=== PATIENT | male | born 1995 | race African-American/Black ===

== ENCOUNTER 2017-07-15 23:40 | Emergency (ER) | payer SELFPAY ==
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
[2017-07-16] MEDS ORDERED: levETIRAcetam 500 MG TAB ONE (00:09)
[2017-07-16] MEDS ORDERED: KETOROLAC 30 MG/ML INJ ONE (00:09)
== END 2017-07-16 00:28 | disposition home or self-care (01) ==
LOC: ER 23:40
DX: M51.17 Intervertebral disc disorders with radiculopathy, lumbosacral region (principal); J45.909 Unspecified asthma, uncomplicated; R56.9 Unspecified convulsions
CPT/HCPCS: 96372; 99284

== ENCOUNTER 2018-03-01 15:33 | Emergency (ER) | payer SELFPAY ==
[2018-03-01] MEDS ORDERED: NA CHLORIDE 0.9% 1,000 ML ONE (16:22)
[2018-03-01 16:23] LABS: Absolute Lymphocytes (CBC) 1.5 K/uL (0.7-4.9); Absolute Monocytes 0.8 K/uL (0.1-1.3); Absolute Neutrophil 6.7 K/uL (1.8-8.0); Basophils % 0.7 % (0-1.3); Eosinophils % 0.7 % (0-4.4); Hematocrit 41.5 % (39.6-49.0); Lymphocytes % 16.8 % (15.3-44.8); MPV 8.3 fL (7.6-11.3); Monocytes % 8.9 % (3.3-12.3); RBC Red Blood Cell Count 5.31 M/uL (4.33-5.43)
[2018-03-01 16:27] LABS: Protime INR 1.08
[2018-03-01] MEDS ORDERED: levETIRAcetam 1,000 MG in NA CHLORIDE 0.9% 100 ML IV ONE (16:30)
[2018-03-01 16:44] LABS: ALT/SGPT 32 U/L (12-78); AST/SGOT 16 U/L (15-37); Albumin 3.5 g/dL (3.4-5.0); Alkaline Phosphatase 74 U/L (45-117); BUN Blood Urea Nitrogen 9 mg/dL (7-18); Bicarbonate 25 mmol/L (21-32); Bilirubin Direct < 0.1 mg/dL (0-0.2); Bilirubin Total 0.4 mg/dL (0.2-1.0); Glucose Level 103 mg/dL (74-106); Potassium 3.4 mmol/L (3.5-5.1); Protein, Total 6.9 g/dL (6.4-8.2); Sodium Level 141 mmol/L (136-145)
[2018-03-01 16:44] LABS: Barbiturates NEGATIVE (NEGATIVE); Benzodiazepines NEGATIVE (NEGATIVE); Cocaine NEGATIVE (NEGATIVE); METHAMPHETAM NEGATIVE (NEGATIVE); Methadone NEGATIVE (NEGATIVE); Opiates NEGATIVE (NEGATIVE); Phencyclidine NEGATIVE (NEGATIVE); THC Cannibis POSITIVE (NEGATIVE)
--- NOTE | 2018-03-01 17:11 | EDPHYS ---
Physician Documentation [facility] Name: Oswaldo Moore Age: 23 yrs Sex: Male : 1995 Arrival Date: 03/01/2018 Time: 15:40 Bed 6 Private MD: Steven Smith HPI: 03/01 15:45 This 23 yrs old Black Male presents to ER via Unassigned with complaints of Doesn't andrez Feel Right. 15:45 The patient presents with seizure activity. Onset: The symptoms/episode began/occurred andrez 1 day(s) ago. Possible causes: drug use, benzodiazepines, unknown. The patient presents with dizziness. Context: occurred at home. Modifying factors: The symptoms are alleviated by nothing, the symptoms are aggravated by nothing. Associated signs and symptoms: The patient has no apparent associated signs or symptoms. Historical: - Allergies: 15:53 Xanax; ph - Home Meds: 15:53 Keppra Oral [Active]; ph - PMHx: 15:53 Asthma; Seizures; ph - Immunization history:: Adult Immunizations unknown. - Social history:: Smoking status: Patient uses tobacco products, smokes one pack cigarettes per day. Patient uses street drugs, marijuana. - Family history:: not pertinent. - Ebola Screening: : No symptoms or risks identified at this time. ROS: 15:45 Constitutional: Negative for fever, chills, and weight loss, Eyes: Negative for injury, andrez pain, redness, and discharge, ENT: Negative for injury, pain, and discharge, Neck: Negative for injury, pain, and swelling, Cardiovascular: Negative for chest pain, palpitations, and edema, Respiratory: Negative for shortness of breath, cough, wheezing, and pleuritic chest pain, Abdomen/GI: Negative for abdominal pain, nausea, vomiting, diarrhea, and constipation, Back: Negative for injury and pain, : Negative for injury, bleeding, discharge, and swelling, MS/Extremity: Negative for injury and deformity, Skin: Negative for injury, rash, and discoloration, Psych: Negative for depression, anxiety, suicide ideation, homicidal ideation, and hallucinations, Allergy/Immunology: Negative for hives, rash, and allergies, Endocrine: Negative for neck swelling, polydipsia, polyuria, polyphagia, and marked weight changes, Hematologic/Lymphatic: Negative for swollen nodes, abnormal bleeding, and unusual bruising. 15:45 Neuro: Positive for dizziness, seizure activity. Exam: 15:45 Constitutional: This is a well developed, well nourished patient who is awake, alert, andrez and in no acute distress. Head/Face: Normocephalic, atraumatic. Eyes: Pupils equal round and reactive to light, extra-ocular motions intact. Lids and lashes normal. Conjunctiva and sclera are non-icteric and not injected. Cornea within normal limits. Periorbital areas with no swelling, redness, or edema. ENT: Nares patent. No nasal discharge, no septal abnormalities noted. Tympanic membranes are normal and external auditory canals are clear. Oropharynx with no redness, swelling, or masses, exudates, or evidence of obstruction, uvula midline. Mucous membranes moist. Neck: Trachea midline, no thyromegaly or masses palpated, and no cervical lymphadenopathy. Supple, full range of motion without nuchal rigidity, or vertebral point tenderness. No Meningismus. Chest/axilla: Normal chest wall appearance and motion. Nontender with no deformity. No lesions are appreciated. Cardiovascular: Regular rate and rhythm with a normal S1 and S2. No gallops, murmurs, or rubs. Normal PMI, no JVD. No pulse deficits. Respiratory: Lungs have equal breath sounds bilaterally, clear to auscultation and percussion. No rales, rhonchi or wheezes noted. No increased work of breathing, no retractions or nasal flaring. Abdomen/GI: Soft, non-tender, with normal bowel sounds. No distension or tympany. No guarding or rebound. No evidence of tenderness throughout. Back: No spinal tenderness. No costovertebral tenderness. Full range of motion. Skin: Warm, dry with normal turgor. Normal color with no rashes, no lesions, and no evidence of cellulitis. MS/ Extremity: Pulses equal, no cyanosis. Neurovascular intact. Full, normal range of motion. Neuro: Awake and alert, GCS 15, oriented to person, place, time, and situation. Cranial nerves II-XII grossly intact. Motor strength 5/5 in all extremities. Sensory grossly intact. Cerebellar exam normal. Normal gait. Psych: Awake, alert, with orientation to person, place and time. Behavior, mood, and affect are within normal limits. Vital Signs: 15:46 BP 138 / 90; Pulse 109; Resp 20; Temp 98.3; Pulse Ox 99% on R/A; Weight 113.4 kg; ph Height 5 ft. 6 in. (167.64 cm); 16:38 BP 125 / 86; Pulse 101; Resp 18; Pulse Ox 100% on R/A; ph 17:28 BP 118 / 76; Pulse 97; Resp 18; Temp 98.0; Pulse Ox 98% on R/A; ph 15:46 Body Mass Index 40.35 (113.40 kg, 167.64 cm) ph MDM: 15:40 Patient medically screened. [facility] 15:48 Data reviewed: vital signs, nurses notes. [facility] 03/01 15:43 Order name: Acetaminophen; Complete Time: 17:04 [facility] 03/01 15:43 Order name: Basic Metabolic Panel; Complete Time: 17:04 [facility] 03/01 15:43 Order name: CBC with Diff; Complete Time: 17:04 [facility] 03/01 15:43 Order name: ETOH Level; Complete Time: 16:42 [facility] 03/01 15:43 Order name: Hepatic Function; Complete Time: 17:04 [facility] 03/01 15:43 Order name: PT-INR; Complete Time: 16:42 [facility] 03/01 15:43 Order name: Ptt, Activated; Complete Time: 16:42 [facility] 03/01 15:43 Order name: Salicylate; Complete Time: 17:04 [facility] 03/01 15:43 Order name: Urine Drug Screen; Complete Time: 17:04 [facility] 03/01 15:43 Order name: EKG; Complete Time: 15:44 [facility] 03/01 16:34 Order name: Urine Dipstick--Ancillary (enter results) 03/01 15:43 Order name: EKG - Nurse/Tech; Complete Time: 17:13 [facility] 03/01 15:43 Order name: IV Saline Lock; Complete Time: 17:14 [facility] 03/01 15:43 Order name: Labs collected and sent; Complete Time: 17:14 [facility] 03/01 15:43 Order name: Urine Dipstick-Ancillary (obtain specimen); Complete Time: 17:14 [facility] 03/01 15:43 Order name: Seizure Precautions; Complete Time: 16:12 [facility] Administered Medications: 16:25 Drug: NS 0.9% 1000 ml Route: IV; Rate: 1 bolus; Site: right antecubital; ph 17:31 Follow up: Response: No adverse reaction; IV Status: Completed infusion ph 17:12 Drug: Potassium Effervescent Tablet 25 mEq Route: PO; ph 17:31 Follow up: Response: No adverse reaction ph 17:17 Not Given (Patient Refused): Keppra 1000 mg IV at per protocol once ph Disposition: 03/01/18 17:10 Discharged to Home. Impression: Epileptic seizures related to external causes, Epileptic seizures related to external causes, not intractable, Hypokalemia, Abuse of non-psychoactive substances. - Condition is Stable. - Discharge Instructions: Potassium Content of Foods, Substance Use Disorder, Nonepileptic Seizures, Seizure, Adult, Seizure, Adult, Pani-[id number]-[id number], Hypokalemia. - Prescriptions for Keppra 500 mg Oral Tablet - take 1 tablet by ORAL route every 12 hours; 20 tablet. - Medication Reconciliation Form, Thank You Letter, Antibiotic Education, Prescription Opioid Use form. - Follow up: Private Physician; When: 2 - 3 days; Reason: Recheck today's complaints, Continuance of care, Re-evaluation by your physician. Follow up: Avni Roberto; When: 2 - 3 days; Reason: Recheck today's complaints, Continuance of care, Re-evaluation by your physician. - Problem is new. - Symptoms have improved. Signatures: Dispatcher [employer] EDMS Steven Herrera MD MD cha Hall, Patricia, RN RN ph Corrections: (The following items were deleted from the chart) 17:32 17:10 03/01/2018 17:10 Discharged to Home. Impression: Epileptic seizures related to ph external causes; Epileptic seizures related to external causes, not intractable; Hypokalemia; Abuse of non-psychoactive substances. Condition is Stable. Discharge Instructions: Nonepileptic Seizures, Seizure, Adult, Seizure, Adult, [id number]. Prescriptions for Keppra 500 mg Oral Tablet - take 1 tablet by ORAL route every 12 hours; 20 tablet. and Forms are Medication Reconciliation Form, Thank You Letter, Antibiotic Education, Prescription Opioid Use. Follow up: Private Physician; When: 2 - 3 days; Reason: Recheck today's complaints, Continuance of care, Re-evaluation by your physician. Follow up: Avni Roberto; When: 2 - 3 days; Reason: Recheck today's complaints, Continuance of care, Re-evaluation by your physician. Problem is new. Symptoms have improved. andrez
--- NOTE | 2018-03-01 17:11 | ER ---
Nurse's Notes [facility] Name: Oswaldo Moore Age: 23 yrs Sex: Male : 1995 Arrival Date: 03/01/2018 Time: 15:40 Bed 6 Private MD: Diagnosis: Epileptic seizures related to external causes;Epileptic seizures related to external causes, not intractable;Hypokalemia;Abuse of non-psychoactive substances Presentation: 03/01 15:42 Presenting complaint: EMS states: Pt was being arrested and began to c/o "aura" r/t ph seizures, pt reports hx of seizures x 2 years after using Xanax, states that he is prescribed Keppra but has not taken it in approx 3 weeks, states, " I only take it when I feel a seizure coming." Reports that aura is weakness and nausea, has been having these symptoms for approx 20 min, no seizure activity noted by EMS or PD, VSS en route, BGL 129. Transition of care: patient was not received from another setting of care. Onset of symptoms was March 01, 2018. Risk Assessment: Do you want to hurt yourself or someone else? Patient reports no desire to harm self or others. Initial Sepsis Screen: Does the patient meet any 2 criteria? No. Patient's initial sepsis screen is negative. Does the patient have a suspected source of infection? No. Patient's initial sepsis screen is negative. Care prior to arrival: IV initiated. 18 GA, in the right antecubital area, Glucose check: 129. 15:42 Method Of Arrival: EMS: [facility] ph 15:42 Acuity: SUMAN 3 ph Historical: - Allergies: 15:53 Xanax; ph - Home Meds: 15:53 Keppra Oral [Active]; ph - PMHx: 15:53 Asthma; Seizures; ph - Immunization history:: Adult Immunizations unknown. - Social history:: Smoking status: Patient uses tobacco products, smokes one pack cigarettes per day. Patient uses street drugs, marijuana. - Family history:: not pertinent. - Ebola Screening: : No symptoms or risks identified at this time. Screenin:55 Abuse screen: Denies threats or abuse. Denies injuries from another. Nutritional ph screening: No deficits noted. Tuberculosis screening: No symptoms or risk factors identified. Fall Risk None identified. Assessment: 15:58 General: General: Appears in no apparent distress. comfortable, well groomed, Behavior ph is calm, cooperative, appropriate for age. 15:58 Pain: Denies pain. Neuro: Level of Consciousness is awake, alert, obeys commands, ph Oriented to person, place, time, situation, Moves all extremities. Full function Reports weakness in "all over". Cardiovascular: Capillary refill < 3 seconds in bilateral fingers Patient's skin is warm and dry. Respiratory: Airway is patent Respiratory effort is even, unlabored, Respiratory pattern is regular, symmetrical. GI: Reports nausea, Patient currently denies vomiting. Derm: Skin is intact, is healthy with good turgor, Skin is pink, warm \\T\\ dry. Musculoskeletal: Circulation, motion, and sensation intact. Range of motion: intact in all extremities. 16:27 Reassessment: Patient appears in no apparent distress at this time. Patient and/or ph family updated on plan of care and expected duration. Pain level reassessed. Patient is alert, oriented x 3, equal unlabored respirations, skin warm/dry/pink. Pt refusing IV Keppra at this time, states, " I want to wait for my blood work to come back. I don't know if I want to take any medicines." PD remains at bedside. Vital Signs: 15:46 BP 138 / 90; Pulse 109; Resp 20; Temp 98.3; Pulse Ox 99% on R/A; Weight 113.4 kg; ph Height 5 ft. 6 in. (167.64 cm); 16:38 BP 125 / 86; Pulse 101; Resp 18; Pulse Ox 100% on R/A; ph 17:28 BP 118 / 76; Pulse 97; Resp 18; Temp 98.0; Pulse Ox 98% on R/A; ph 15:46 Body Mass Index 40.35 (113.40 kg, 167.64 cm) ph ED Course: 15:40 Patient arrived in ED. ph 15:40 Steven Herrera MD is Attending Physician. [facility] 15:46 Triage completed. ph 15:48 Ernestina Daigle, DEMETRIA is Primary Nurse. ph 15:54 Arm band placed on. ph 15:54 EKG done, by dietetic technician registered. reviewed by Steven Herrera MD. sm3 15:56 Patient has correct armband on for positive identification. Bed in low position. Call ph light in reach. Side rails up X2. Pulse ox on. NIBP on. Warm blanket given. 17:09 Avni Roberto MD is Referral Physician. [facility] 17:28 No provider procedures requiring assistance completed. IV discontinued, intact, ph bleeding controlled, No redness/swelling at site. Pressure dressing applied. Administered Medications: 16:25 Drug: NS 0.9% 1000 ml Route: IV; Rate: 1 bolus; Site: right antecubital; ph 17:31 Follow up: Response: No adverse reaction; IV Status: Completed infusion ph 17:12 Drug: Potassium Effervescent Tablet 25 mEq Route: PO; ph 17:31 Follow up: Response: No adverse reaction ph 17:17 Not Given (Patient Refused): Keppra 1000 mg IV at per protocol once ph Outcome: 17:10 Discharge ordered by . [facility] 17:28 Discharged to Law Enforcement ph 17:28 Condition: good 17:28 Discharge instructions given to patient, Instructed on discharge instructions, follow up and referral plans. medication usage, Demonstrated understanding of instructions, follow-up care, medications, Prescriptions given X 1. 17:32 Patient left the ED. ph Signatures: Steven Herrera MD MD cha Hall, Patricia RN RN Katie Ortiz 3 Corrections: (The following items were deleted from the chart) 16:37 15:58 General: ph ph 16:38 16:27 Pain: Denies pain. ph ph 16:38 16:27 Neuro: Level of Consciousness is awake, alert, obeys commands, Oriented to ph person, place, time, situation, Moves all extremities. Full function Reports weakness in "all over" ph 16:38 16:27 Cardiovascular: Capillary refill < 3 seconds in bilateral fingers Patient's skin ph is warm and dry. ph 16:38 16:27 Respiratory: Airway is patent Respiratory effort is even, unlabored, Respiratory ph pattern is regular, symmetrical, ph 16:38 16:27 GI: Reports nausea, Patient currently denies vomiting, ph ph 16:38 16:27 Derm: Skin is intact, is healthy with good turgor, Skin is pink, warm \\T\\ dry. ph ph 16:38 16:27 Musculoskeletal: Circulation, motion, and sensation intact. Range of motion: ph intact in all extremities, ph 16:42 16:38 Pulse 101bpm; Resp 18bpm; Pulse Ox 100% RA; ph ph
[2018-03-01 17:16] LABS: Urine Blood TRACE (NEG); Urine Glucose NEGATIVE (NEG); Urine Protein NEGATIVE (NEG)
[2018-03-01] MEDS ORDERED: POTASSIUM CL SA 10 MEQ TAB PO ONE (17:32)
--- NOTE | 2018-03-02 07:44 | EKG ---
Test Date: 2018-03-01 Test Time: 15:46:59 Cribbing Setter: GARETH MEASUREMENT RESULTS: Intervals: Rate: 91 GA: 140 QRSD: 90 QT: 312 QTc: 383 Raymond: P: 36 GA: 140 QRS: 29 T: 13 INTERPRETIVE STATEMENTS: Sinus rhythm with marked sinus arrhythmia Possible Left atrial enlargement T wave abnormality, consider lateral ischemia Abnormal ECG Compared to ECG 09/23/2016 05:21:21 T-wave abnormality now present Electronically Signed On 03-02-18 07:44:29 ASSISTANT FARM OPERATIONS MANAGER by Haider Beltrán
== END 2018-03-01 17:32 | disposition home or self-care (01) ==
LOC: ER 15:33
DX: G40.509 Epileptic seizures related to external causes, not intractable, without status epilepticus (principal); F55.8 Abuse of other non-psychoactive substances; E87.6 Hypokalemia; F17.210 Nicotine dependence, cigarettes, uncomplicated; Z88.8 Allergy status to other drugs, medicaments and biological substances
CPT/HCPCS: 36415; 80048; 80076; 80307; 80320; 80329; 81003; 85025; 85610; 85730; 93005; 96360; 99284; J1953; J7030

== ENCOUNTER 2018-05-05 06:41 | Emergency (ER) | payer SELFPAY ==
[2018-05-05] MEDS ORDERED: ACETAMINOPHEN 325 MG TABLET ONE (07:08)
--- NOTE | 2018-05-05 07:44 | EDPHYS ---
Physician Documentation [facility] Name: Oswaldo Moore Age: 23 yrs Sex: Male : 1995 Arrival Date: 05/05/2018 Time: 06:44 Bed 6 Private MD: ED Physician Wilberto Sharma HPI: 05/05 06:55 This 23 yrs old Black Male presents to ER via Ambulatory with complaints of Sore Throat.jr8 06:55 The patient presents with sore throat. The patient describes throat pain as constant, jr8 raw. Onset: The symptoms/episode began/occurred acutely, 2 day(s) ago. Severity of symptoms: At their worst the symptoms were mild, in the emergency department the symptoms are unchanged. Modifying factors: The symptoms are alleviated by nothing, the symptoms are aggravated by sleeping, swallowing. Associated signs and symptoms: Pertinent positives: fever, Sore throat. The patient has not experienced similar symptoms in the past. The patient has not recently seen a physician. Historical: - Allergies: 06:55 Xanax; bb - Home Meds: 06:57 None [Active]; bb - PMHx: 06:55 Asthma; Seizures; bb - PSHx: 06:55 None; bb - Immunization history:: Adult Immunizations up to date. - Social history:: Smoking status: Patient uses tobacco products, smokes one-half pack cigarettes per day, Patient/guardian denies using alcohol, street drugs. - Ebola Screening: : No symptoms or risks identified at this time. ROS: 06:55 Eyes: Negative for injury, pain, redness, and discharge, Neck: Negative for injury, jr8 pain, and swelling, Cardiovascular: Negative for chest pain, palpitations, and edema, Respiratory: Negative for shortness of breath, cough, wheezing, and pleuritic chest pain, Abdomen/GI: Negative for abdominal pain, nausea, vomiting, diarrhea, and constipation, Back: Negative for injury and pain, MS/Extremity: Negative for injury and deformity, Skin: Negative for injury, rash, and discoloration, Neuro: Negative for headache, weakness, numbness, tingling, and seizure. 06:55 Constitutional: Positive for fever. 06:55 ENT: Positive for sore throat, Negative for drainage from ear(s), ear pain, rhinorrhea, sinus congestion, difficulty swallowing, difficulty handling secretions, hoarseness. Exam: 06:55 Eyes: Pupils equal round and reactive to light, extra-ocular motions intact. Lids and jr8 lashes normal. Conjunctiva and sclera are non-icteric and not injected. Cornea within normal limits. Periorbital areas with no swelling, redness, or edema. Neck: Trachea midline, no thyromegaly or masses palpated, and no cervical lymphadenopathy. Supple, full range of motion without nuchal rigidity, or vertebral point tenderness. No Meningismus. Cardiovascular: Regular rate and rhythm with a normal S1 and S2. No gallops, murmurs, or rubs. Normal PMI, no JVD. No pulse deficits. Respiratory: Lungs have equal breath sounds bilaterally, clear to auscultation and percussion. No rales, rhonchi or wheezes noted. No increased work of breathing, no retractions or nasal flaring. Abdomen/GI: Soft, non-tender, with normal bowel sounds. No distension or tympany. No guarding or rebound. No evidence of tenderness throughout. Back: No spinal tenderness. No costovertebral tenderness. Full range of motion. Skin: Warm, dry with normal turgor. Normal color with no rashes, no lesions, and no evidence of cellulitis. MS/ Extremity: Pulses equal, no cyanosis. Neurovascular intact. Full, normal range of motion. Neuro: Awake and alert, GCS 15, oriented to person, place, time, and situation. Cranial nerves II-XII grossly intact. Motor strength 5/5 in all extremities. Sensory grossly intact. Cerebellar exam normal. Normal gait. 06:55 ENT: Exam is negative for earache, ear discharge, TM abnormalities, nasal discharge, Mouth: Lips: moist, Oral mucosa: pink and intact, moist, Gums: pink, Tongue: is moist, Posterior pharynx: Airway: patent, Tonsils: bilaterally enlarged, with erythema, with exudate, no ulcerations, Uvula: midline, non-edematous, no erythema, swelling, is not appreciated, erythema, that is mild. Vital Signs: 06:55 BP 118 / 78; Pulse 119; Resp 16 S; Temp 100.9(O); Pulse Ox 99% on R/A; Weight 104.33 kg bb (R); Height 5 ft. 6 in. (167.64 cm) (R); Pain 10/10; 07:55 BP 123 / 65; Pulse 101; Resp 16; Temp 99.5; Pulse Ox 99% ; bp 06:55 Body Mass Index 37.12 (104.33 kg, 167.64 cm) bb MDM: 06:50 Patient medically screened. jr8 07:33 Differential diagnosis: joel-shin virus, group A strep tonsillitis, ambreen's angina, jr8 peritonsillar abscess pharyngitis, retropharyngeal abcess tonsillitis, upper respiratory infection, uvulitis, viral syndrome. Data reviewed: vital signs, nurses notes, lab test result(s), and as a result, I will discharge patient. Data interpreted: Pulse oximetry: on room air is 99 %. Interpretation: normal. Counseling: I had a detailed discussion with the patient and/or guardian regarding: the historical points, exam findings, and any diagnostic results supporting the discharge/admit diagnosis, lab results, the need for outpatient follow up, a family practitioner, to return to the emergency department if symptoms worsen or persist or if there are any questions or concerns that arise at home. 05/05 07:03 Order name: Influenza Screen (A ; Complete Time: 07:29 EDMS 05/05 07:03 Order name: Group A Streptococcus Rapid Sc; Complete Time: 07:29 EDMS 05/05 07:23 Order name: Throat Culture EDMS Administered Medications: 06:59 Drug: Tylenol 650 mg Route: PO; jd3 07:39 Follow up: Response: Temperature is decreased bp 07:39 Drug: Decadron 10 mg Route: IM; Site: left vastus lateralis; bp Disposition: 05/05/18 07:44 Discharged to Home. Impression: Acute tonsillitis. - Condition is Stable. - Discharge Instructions: Tonsillitis. - Prescriptions for Augmentin 875- 125 mg Oral Tablet - take 1 tablet by ORAL route every 12 hours for 10 days; 20 tablet. Tessalon Perles 100 mg Oral Capsule - take 1 capsule by ORAL route every 8 hours As needed; 15 capsule. - Medication Reconciliation Form, Thank You Letter, Antibiotic Education, Prescription Opioid Use form. - Follow up: Private Physician; When: 1 week; Reason: Recheck today's complaints, Continuance of care, Re-evaluation by your physician. - Problem is new. - Symptoms have improved. Addendum: 05/07/2018 19:27 Co-signature as Attending Physician, Wilberto Sharma MD. r n Signatures: Dispatcher [employer] Slime Angeles RN RN Wilberto Diallo MD MD rn Roszak, Josh, PA PA jr8 Domenic Haney RN RN jd3 Aroldo Barrera RN RN bp Corrections: (The following items were deleted from the chart) 05/05 06:57 06:55 Home Meds: Keppra Oral; stone ritter 07:56 07:44 05/05/2018 07:44 Discharged to Home. Impression: Acute tonsillitis. Condition is bp Stable. Forms are Medication Reconciliation Form, Thank You Letter, Antibiotic Education, Prescription Opioid Use. Follow up: Private Physician; When: 1 week; Reason: Recheck today's complaints, Continuance of care, Re-evaluation by your physician. Problem is new. Symptoms have improved. jr8
--- NOTE | 2018-05-05 07:44 | ER ---
Nurse's Notes [facility] Name: Oswaldo Moore Age: 23 yrs Sex: Male : 1995 Arrival Date: 05/05/2018 Time: 06:44 Bed 6 Private MD: Diagnosis: Acute tonsillitis Presentation: 05/05 06:53 Presenting complaint: Patient states: he has had a sore throat and fever for 2 days pt bb is having difficulty swallowing and states the pain woke him up pain currently is 10/10. Transition of care: patient was not received from another setting of care. Onset of symptoms was May 03, 2018. Risk Assessment: Do you want to hurt yourself or someone else? Patient reports no desire to harm self or others. Initial Sepsis Screen: Does the patient meet any 2 criteria? No. Patient's initial sepsis screen is negative. Does the patient have a suspected source of infection? No. Patient's initial sepsis screen is negative. Care prior to arrival: None. 06:53 Method Of Arrival: Ambulatory bb 06:53 Acuity: SUMAN 4 bb Historical: - Allergies: 06:55 Xanax; bb - Home Meds: 06:57 None [Active]; bb - PMHx: 06:55 Asthma; Seizures; bb - PSHx: 06:55 None; bb - Immunization history:: Adult Immunizations up to date. - Social history:: Smoking status: Patient uses tobacco products, smokes one-half pack cigarettes per day, Patient/guardian denies using alcohol, street drugs. - Ebola Screening: : No symptoms or risks identified at this time. Screenin:00 Abuse screen: Denies threats or abuse. Denies injuries from another. Nutritional bp screening: No deficits noted. Tuberculosis screening: No symptoms or risk factors identified. Fall Risk None identified. Assessment: 07:00 General: Appears in no apparent distress. comfortable, Behavior is calm, cooperative, bp appropriate for age, RECD REPORT FROM ARMANDO AUGUSTIN. Pain: Complains of pain in THROAT. Neuro: Level of Consciousness is awake, alert, obeys commands, Oriented to person, place, time, situation, Appropriate for age. Cardiovascular: No deficits noted. Respiratory: Airway is patent Respiratory effort is even, unlabored, Respiratory pattern is regular, symmetrical, Breath sounds are clear. GI: No signs and/or symptoms were reported involving the gastrointestinal system. : No signs and/or symptoms were reported regarding the genitourinary system. EENT: Throat is reddened has enlarged tonsils bilaterally. Derm: No deficits noted. Musculoskeletal: Circulation, motion, and sensation intact. Range of motion: intact in all extremities. 07:54 Reassessment: PT D/C HOME AMBULATORY, DX WITH TONSILITIS. bp Vital Signs: 06:55 BP 118 / 78; Pulse 119; Resp 16 S; Temp 100.9(O); Pulse Ox 99% on R/A; Weight 104.33 kg bb (R); Height 5 ft. 6 in. (167.64 cm) (R); Pain 10/10; 07:55 BP 123 / 65; Pulse 101; Resp 16; Temp 99.5; Pulse Ox 99% ; bp 06:55 Body Mass Index 37.12 (104.33 kg, 167.64 cm) ED Course: 06:44 Patient arrived in ED. ag3 06:50 [facility]fred [facility]. jr8 06:50 Wilberto Sharma MD is Attending Physician. jr8 06:54 Triage completed. bb 06:55 Arm band placed on Patient placed in an exam room, on a stretcher, on pulse oximetry. bb 07:00 Patient has correct armband on for positive identification. Bed in low position. Call bp light in reach. Side rails up X2. 07:23 Aroldo Barrera RN is Primary Nurse. bp 07:54 No provider procedures requiring assistance completed. Patient did not have IV access bp during this emergency room visit. Administered Medications: 06:59 Drug: Tylenol 650 mg Route: PO; jd3 07:39 Follow up: Response: Temperature is decreased bp 07:39 Drug: Decadron 10 mg Route: IM; Site: left vastus lateralis; bp Outcome: 07:44 Discharge ordered by . jr8 07:54 Discharged to home ambulatory. bp 07:54 Condition: stable 07:54 Discharge instructions given to patient, Instructed on discharge instructions, follow up and referral plans. medication usage, Demonstrated understanding of instructions, follow-up care, medications, Prescriptions given X 2. 07:56 Patient left the ED. bp Signatures: Slime Meyer RN RN bb Wilfred Li PA PA jr8 Domenic Haney RN RN jd3 Aroldo Barrera RN RN bp Lizet Edwards ag3 Corrections: (The following items were deleted from the chart) 06:57 06:55 Home Meds: Keppra Oral; bb bb
[2018-05-05] MEDS ORDERED: DEXAMETHASONE 4 MG/ML VIAL ONE (07:46)
== END 2018-05-05 07:56 | disposition home or self-care (01) ==
LOC: ER 06:41
DX: J03.90 Acute tonsillitis, unspecified (principal); F17.210 Nicotine dependence, cigarettes, uncomplicated; Z88.5 Allergy status to narcotic agent
CPT/HCPCS: 87070; 87081; 87804; 96372; 99283

== ENCOUNTER 2018-07-05 18:29 | Emergency (ER) | payer SELFPAY ==
--- NOTE | 2018-07-05 19:15 | ER ---
Nurse's Notes [facility] Name: Oswaldo Moore Age: 23 yrs Sex: Male : 1995 Arrival Date: 07/05/2018 Time: 18:29 Bed 25 Private MD: Diagnosis: Allergic contact dermatitis-lip Presentation: 07/05 18:38 Presenting complaint: Patient states: "I noticed this morning that my lip was swollen sv and I have a bump on my tongue." Sore noted inside the upper lip and swelling. Transition of care: patient was not received from another setting of care. Onset of symptoms was July 05, 2018. Care prior to arrival: None. 18:38 Method Of Arrival: Ambulatory sv 18:38 Acuity: SUMAN 4 sv 19:00 Risk Assessment: Do you want to hurt yourself or someone else? Patient reports no ea desire to harm self or others. Initial Sepsis Screen: Does the patient meet any 2 criteria? HR > 90 bpm. Does the patient have a suspected source of infection? No. Patient's initial sepsis screen is negative. Triage Assessment: 18:43 General: Appears in no apparent distress. comfortable, well developed, Behavior is sv calm, cooperative, appropriate for age. Pain: Complains of pain in upper lip Pain currently is 8 out of 10 on a pain scale. Neuro: Level of Consciousness is awake, alert, obeys commands, Oriented to person, place, time, situation, Gait is steady. Respiratory: Respiratory effort is even, unlabored, Respiratory pattern is regular, symmetrical. Historical: - Allergies: 18:40 Xanax; sv - PMHx: 18:40 Asthma; Seizures; sv - PSHx: 18:40 None; sv - Immunization history:: Adult Immunizations up to date. - Social history:: Smoking status: Patient/guardian denies using tobacco. - Family history:: not pertinent. - Ebola Screening: : No symptoms or risks identified at this time. Screenin:28 Abuse screen: Denies threats or abuse. Nutritional screening: No deficits noted. ea Tuberculosis screening: No symptoms or risk factors identified. Fall Risk None identified. Assessment: 19:00 General: Appears in no apparent distress. Behavior is calm, cooperative, appropriate ea for age. Pain: Denies pain. Neuro: Level of Consciousness is awake, alert, obeys commands, Oriented to person, place, time, situation. Respiratory: Airway is patent Respiratory effort is even, unlabored, Respiratory pattern is regular, symmetrical. EENT: lip swelling to left side of upper lip pt reports it started yesterday evening. Derm: Skin is pink, warm \\T\\ dry. 19:30 Reassessment: Patient and/or family updated on plan of care and expected duration. Pain ea level reassessed. Patient is alert, oriented x 3, equal unlabored respirations, skin warm/dry/pink. Discharge instruction given to patient, verbalized the understanding of instruction. Pt left ED ambulatory with significant other, tolerating well. Vital Signs: 18:40 BP 135 / 80; Pulse 125; Resp 18; Temp 98.5; Pulse Ox 95% ; Weight 104.33 kg; Height 5 sv ft. 6 in. (167.64 cm); Pain 8/10; 19:29 BP 130 / 78; Pulse 99; Resp 18; Pulse Ox 96% ; ea 18:40 Body Mass Index 37.12 (104.33 kg, 167.64 cm) sv ED Course: 18:29 Patient arrived in ED. as 18:40 Triage completed. sv 18:40 Arm band placed on. sv 18:47 Steven Herrera MD is Attending Physician. andrez 19:00 Patient has correct armband on for positive identification. Bed in low position. Call ea light in reach. 19:01 Mirna Schwab, RN is Primary Nurse. ea 19:29 No provider procedures requiring assistance completed. Patient did not have IV access ea during this emergency room visit. Administered Medications: 19:09 Drug: Pepcid 40 mg Route: PO; ea 19:32 Follow up: Response: No adverse reaction ea 19:10 Drug: KeFLEX 500 mg Route: PO; ea 19:32 Follow up: Response: No adverse reaction ea 19:11 Drug: Benadryl 50 mg Route: PO; ea 19:32 Follow up: Response: No adverse reaction ea 19:22 Drug: Valtrex 1000 mg Route: PO; ea 19:32 Follow up: Response: Medication administered at discharge. ea Outcome: 19:15 Discharge ordered by . andrez 19:31 Discharged to home ambulatory, with significant other. ea 19:31 Condition: good 19:31 Discharge instructions given to patient, Instructed on discharge instructions, follow up and referral plans. medication usage, Demonstrated understanding of instructions, follow-up care, medications, Prescriptions given X 4. 19:33 Patient left the ED. ea Signatures: Katie Longoria RN RN Steven Mcknight MD MD cha Martinez, Amelia as Antunez, Elena, RN RN renee Corrections: (The following items were deleted from the chart) 18:41 18:40 BP 135 / 80; Pulse 125bpm; Resp 18bpm; Pulse Ox 95%; Temp 98.5F; 104.33 kg; sv Height 5 ft. 6 in.; BMI: 37.1; Pain 10/10; sv 18:43 18:38 Presenting complaint: Patient states: "sore on the inside upper lip and a bump on sv my tongue." sv
--- NOTE | 2018-07-05 19:15 | EDPHYS ---
Physician Documentation [facility] Name: Oswaldo Moore Age: 23 yrs Sex: Male : 1995 Arrival Date: 07/05/2018 Time: 18:29 Bed 25 Private MD: ED Physician Steven Herrera HPI: 07/05 19:01 This 23 yrs old Black Male presents to ER via Ambulatory with complaints of Lips andrez Swelling. 19:01 The patient presents with pain, swelling. The problem is located in the upper vermilion andrez border. Onset: The symptoms/episode began/occurred 2 day(s) ago. Duration: The symptoms are continuous, and are steadily getting worse. Modifying factors: The symptoms are alleviated by nothing, the symptoms are aggravated by nothing. Associated signs and symptoms: The patient has no apparent associated signs or symptoms. Severity of symptoms: At their worst the symptoms were mild, in the emergency department the symptoms are unchanged. The patient has not experienced similar symptoms in the past. Historical: - Allergies: 18:40 Xanax; sv - PMHx: 18:40 Asthma; Seizures; sv - PSHx: 18:40 None; sv - Immunization history:: Adult Immunizations up to date. - Social history:: Smoking status: Patient/guardian denies using tobacco. - Family history:: not pertinent. - Ebola Screening: : No symptoms or risks identified at this time. ROS: 19:01 Constitutional: Negative for fever, chills, and weight loss, Eyes: Negative for injury, andrez pain, redness, and discharge, Neck: Negative for injury, pain, and swelling, Cardiovascular: Negative for chest pain, palpitations, and edema, Respiratory: Negative for shortness of breath, cough, wheezing, and pleuritic chest pain, Abdomen/GI: Negative for abdominal pain, nausea, vomiting, diarrhea, and constipation, Back: Negative for injury and pain, : Negative for injury, bleeding, discharge, and swelling, MS/Extremity: Negative for injury and deformity, Skin: Negative for injury, rash, and discoloration, Neuro: Negative for headache, weakness, numbness, tingling, and seizure, Psych: Negative for depression, anxiety, suicide ideation, homicidal ideation, and hallucinations, Allergy/Immunology: Negative for hives, rash, and allergies, Endocrine: Negative for neck swelling, polydipsia, polyuria, polyphagia, and marked weight changes, Hematologic/Lymphatic: Negative for swollen nodes, abnormal bleeding, and unusual bruising. 19:01 ENT: Positive for left upper lip swelling, no trauma. Exam: 19:01 Constitutional: This is a well developed, well nourished patient who is awake, alert, andrez and in no acute distress. Eyes: Pupils equal round and reactive to light, extra-ocular motions intact. Lids and lashes normal. Conjunctiva and sclera are non-icteric and not injected. Cornea within normal limits. Periorbital areas with no swelling, redness, or edema. Neck: Trachea midline, no thyromegaly or masses palpated, and no cervical lymphadenopathy. Supple, full range of motion without nuchal rigidity, or vertebral point tenderness. No Meningismus. Chest/axilla: Normal chest wall appearance and motion. Nontender with no deformity. No lesions are appreciated. Cardiovascular: Regular rate and rhythm with a normal S1 and S2. No gallops, murmurs, or rubs. Normal PMI, no JVD. No pulse deficits. Respiratory: Lungs have equal breath sounds bilaterally, clear to auscultation and percussion. No rales, rhonchi or wheezes noted. No increased work of breathing, no retractions or nasal flaring. Abdomen/GI: Soft, non-tender, with normal bowel sounds. No distension or tympany. No guarding or rebound. No evidence of tenderness throughout. Back: No spinal tenderness. No costovertebral tenderness. Full range of motion. Skin: Warm, dry with normal turgor. Normal color with no rashes, no lesions, and no evidence of cellulitis. MS/ Extremity: Pulses equal, no cyanosis. Neurovascular intact. Full, normal range of motion. Neuro: Awake and alert, GCS 15, oriented to person, place, time, and situation. Cranial nerves II-XII grossly intact. Motor strength 5/5 in all extremities. Sensory grossly intact. Cerebellar exam normal. Normal gait. Psych: Awake, alert, with orientation to person, place and time. Behavior, mood, and affect are within normal limits. 19:01 ENT: Dental exam: left upper lip swelling. Vital Signs: 18:40 BP 135 / 80; Pulse 125; Resp 18; Temp 98.5; Pulse Ox 95% ; Weight 104.33 kg; Height 5 sv ft. 6 in. (167.64 cm); Pain 8/10; 19:29 BP 130 / 78; Pulse 99; Resp 18; Pulse Ox 96% ; ea 18:40 Body Mass Index 37.12 (104.33 kg, 167.64 cm) sv MDM: 18:47 Patient medically screened. [facility] 19:18 Data reviewed: vital signs, nurses notes. [facility] 07/05 19:14 Order name: Ice pack; Complete Time: 19:20 [facility] Administered Medications: 19:09 Drug: Pepcid 40 mg Route: PO; ea 19:32 Follow up: Response: No adverse reaction ea 19:10 Drug: KeFLEX 500 mg Route: PO; ea 19:32 Follow up: Response: No adverse reaction ea 19:11 Drug: Benadryl 50 mg Route: PO; ea 19:32 Follow up: Response: No adverse reaction ea 19:22 Drug: Valtrex 1000 mg Route: PO; ea 19:32 Follow up: Response: Medication administered at discharge. ea Disposition: 07/05/18 19:15 Discharged to Home. Impression: Allergic contact dermatitis - lip. - Condition is Stable. - Prescriptions for Benadryl 25 mg Oral Capsule - take 2 capsule by ORAL route every 6 hours As needed; 36 tablet. Keflex 500 mg Oral Capsule - take 1 capsule by ORAL route every 6 hours for 7 days; 28 capsule. Pepcid 20 mg Oral Tablet - take 1 tablet by ORAL route every 12 hours for 10 days; 20 tablet. Valtrex 1 g Oral Tablet - take 1 tablet by ORAL route every 8 hours for 5 days; 15 tablet. - Medication Reconciliation Form, Thank You Letter, Antibiotic Education, Prescription Opioid Use form. - Follow up: Private Physician; When: 2 - 3 days; Reason: Recheck today's complaints, Continuance of care, Re-evaluation by your physician. - Problem is new. - Symptoms have improved. Signatures: Katie Longoria RN RN sv Anderson, Corey, MD MD cha Antunez, Elena, RN RN ea Corrections: (The following items were deleted from the chart) 19:33 19:15 07/05/2018 19:15 Discharged to Home. Impression: Allergic contact dermatitis - ea lip. Condition is Stable. Forms are Medication Reconciliation Form, Thank You Letter, Antibiotic Education, Prescription Opioid Use. Follow up: Private Physician; When: 2 - 3 days; Reason: Recheck today's complaints, Continuance of care, Re-evaluation by your physician. Problem is new. Symptoms have improved. andrez
[2018-07-05] MEDS ORDERED: CEPHALEXIN 250 MG CAP ONE (19:16)
[2018-07-05] MEDS ORDERED: DIPHENHYDRAMINE 25 MG TAB/CAP ONE (19:16)
[2018-07-05] MEDS ORDERED: FAMOTIDINE 20 MG TAB ONE (19:16)
[2018-07-05] MEDS ORDERED: VALACYCLOVIR 500 MG TAB ONE (19:29)
== END 2018-07-05 19:33 | disposition home or self-care (01) ==
LOC: ER 18:29
DX: L23.9 Allergic contact dermatitis, unspecified cause (principal); Z88.8 Allergy status to other drugs, medicaments and biological substances
CPT/HCPCS: 99283

== ENCOUNTER 2019-03-28 12:34 | Emergency (ER) | payer SELFPAY ==
--- NOTE | 2019-03-28 13:10 | ER ---
Nurse's Notes [facility] Name: Oswaldo Moore Age: 24 yrs Sex: Male : 1995 Arrival Date: 03/28/2019 Time: 12:35 Bed 30 Private MD: Diagnosis: Weakness;Conversion disorder with seizures or convulsions Presentation: 03/28 12:39 Presenting complaint: Patient states: his gf woke him up and said he had a seizure, iw says he was shaking and breathing hard, has had previous seizures but does not have epilepsy, is prescribed keppra but doesn't take it daily, he uses xanax occasionally. Transition of care: patient was not received from another setting of care. Onset of symptoms was March 28, 2019. Risk Assessment: Do you want to hurt yourself or someone else? Patient reports no desire to harm self or others. Initial Sepsis Screen: Does the patient meet any 2 criteria? No. Patient's initial sepsis screen is negative. Does the patient have a suspected source of infection? No. Patient's initial sepsis screen is negative. Care prior to arrival: None. 12:39 Method Of Arrival: Ambulatory iw 12:39 Acuity: SUMAN 3 iw Historical: - Allergies: 12:44 No Known Allergies; iw - Home Meds: 12:44 None [Active]; iw - PMHx: 12:44 Asthma; Seizures; iw - PSHx: 12:44 None; iw - Immunization history:: Adult Immunizations up to date. - Social history:: Smoking status: Patient/guardian denies using tobacco. - Ebola Screening: : Patient negative for fever greater than or equal to 101.5 degrees Fahrenheit, and additional compatible Ebola Virus Disease symptoms Patient denies exposure to infectious person Patient denies travel to an Ebola-affected area in the 21 days before illness onset No symptoms or risks identified at this time. - Family history:: not pertinent. Screenin:25 Fall Risk None identified. mg2 13:36 Abuse screen: Denies threats or abuse. Denies injuries from another. Nutritional mg2 screening: No deficits noted. Tuberculosis screening: No symptoms or risk factors identified. Assessment: 13:25 General: Appears in no apparent distress. comfortable, Behavior is calm, cooperative. mg2 Pain: Denies pain. Neuro: Level of Consciousness is awake, alert, obeys commands, Oriented to person, place, time, situation. Cardiovascular: Capillary refill < 3 seconds Patient's skin is warm and dry. Respiratory: Airway is patent Respiratory effort is even, unlabored, Respiratory pattern is regular, symmetrical. GI: No signs and/or symptoms were reported involving the gastrointestinal system. : No signs and/or symptoms were reported regarding the genitourinary system. EENT: No signs and/or symptoms were reported regarding the EENT system. Derm: Skin is intact, is healthy with good turgor, Skin is pink, warm \T\ dry. normal. 13:25 Musculoskeletal: Circulation, motion, and sensation intact. Capillary refill < 3 mg2 seconds. 13:37 Reassessment: patient states he had no seizure episode today or in the last 2 months. mg2 Vital Signs: 12:44 BP 120 / 79; Pulse 113; Resp 16 S; Temp 98.3; Pulse Ox 100% on R/A; Weight 113.4 kg; iw Height 5 ft. 6 in. (167.64 cm); 12:44 Body Mass Index 40.35 (113.40 kg, 167.64 cm) iw Kelle Coma Score: 13:00 Eye Response: spontaneous(4). Verbal Response: oriented(5). Motor Response: obeys mg2 commands(6). Total: 15. ED Course: 12:35 Patient arrived in ED. mr 12:42 Triage completed. iw 12:44 Arm band placed on. iw 12:46 Kingston Olivo RN is Primary Nurse. mg2 12:47 Steven Herrera MD is Attending Physician. andrez 13:00 Bed in low position. Call light in reach. Verbal reassurance given. Pulse ox on. NIBP jp3 on. 13:00 Seizure precautions initiated. mg2 13:00 Patient maintains SpO2 saturation greater than 95% on room air. jp3 13:27 Avni Roberto MD is Referral Physician. andrez 13:36 No provider procedures requiring assistance completed. Patient did not have IV access mg2 during this emergency room visit. Administered Medications: No medications were administered Outcome: 13:09 Discharge ordered by . andrez 13:37 Discharged to home ambulatory, with family. mg2 13:37 Condition: good 13:37 Discharge instructions given to patient, family, Instructed on discharge instructions, follow up and referral plans. Demonstrated understanding of instructions, follow-up care. 13:37 Patient left the ED. mg2 Signatures: Steven Herrera MD MD [facility] m[facility] China Mi RN RN iw Kingston Olivo RN RN mg2 Herman Rivero jp3
--- NOTE | 2019-03-28 13:10 | EDPHYS ---
Physician Documentation [facility] Name: Oswaldo Moore Age: 24 yrs Sex: Male : 1995 Arrival Date: 03/28/2019 Time: 12:35 Bed 30 Private MD: Steven Smith HPI: 03/28 13:05 This 24 yrs old Black Male presents to ER via Ambulatory with complaints of Probable andrez Seizure. 13:05 The patient presents after having a possible seizure episode, no tonic-clonic activity andrez was appreciated, no post-ictal period is described. Character of seizure(s): Loss of consciousness: the patient did not lose consciousness, Motor activity: the motor activity is unknown, Incontinence: none, Apnea: the patient did not experience apnea, Circulation: the patient did not experience evidence of pulse disturbance. Seizure onset: the onset is not known. Context: the seizure(s) was witnessed, by family, . Seizure Hx: Cause: unknown. Associated injury: The patient did not suffer any apparent associated injury. Current symptoms: Currently, the patient is not experiencing any symptoms, the patient feels back to baseline, no decreased level of consciousness, no confusion, no dysphasia, no headache, no paralysis, no visual changes. The patient has experienced similar episodes in the past, a few times. Historical: - Allergies: 12:44 No Known Allergies; iw - Home Meds: 12:44 None [Active]; iw - PMHx: 12:44 Asthma; Seizures; iw - PSHx: 12:44 None; iw - Immunization history:: Adult Immunizations up to date. - Social history:: Smoking status: Patient/guardian denies using tobacco. - Ebola Screening: : Patient negative for fever greater than or equal to 101.5 degrees Fahrenheit, and additional compatible Ebola Virus Disease symptoms Patient denies exposure to infectious person Patient denies travel to an Ebola-affected area in the 21 days before illness onset No symptoms or risks identified at this time. - Family history:: not pertinent. ROS: 13:05 Constitutional: Negative for fever, chills, and weight loss, Eyes: Negative for injury, andrez pain, redness, and discharge, ENT: Negative for injury, pain, and discharge, Neck: Negative for injury, pain, and swelling, Cardiovascular: Negative for chest pain, palpitations, and edema, Respiratory: Negative for shortness of breath, cough, wheezing, and pleuritic chest pain, Abdomen/GI: Negative for abdominal pain, nausea, vomiting, diarrhea, and constipation, Back: Negative for injury and pain, : Negative for injury, bleeding, discharge, and swelling, MS/Extremity: Negative for injury and deformity, Skin: Negative for injury, rash, and discoloration, Neuro: Negative for headache, weakness, numbness, tingling, and seizure, Psych: Negative for depression, anxiety, suicide ideation, homicidal ideation, and hallucinations, Allergy/Immunology: Negative for hives, rash, and allergies, Endocrine: Negative for neck swelling, polydipsia, polyuria, polyphagia, and marked weight changes, Hematologic/Lymphatic: Negative for swollen nodes, abnormal bleeding, and unusual bruising. Exam: 13:05 Constitutional: This is a well developed, well nourished patient who is awake, alert, andrez and in no acute distress. Head/Face: Normocephalic, atraumatic. Eyes: Pupils equal round and reactive to light, extra-ocular motions intact. Lids and lashes normal. Conjunctiva and sclera are non-icteric and not injected. Cornea within normal limits. Periorbital areas with no swelling, redness, or edema. ENT: Nares patent. No nasal discharge, no septal abnormalities noted. Tympanic membranes are normal and external auditory canals are clear. Oropharynx with no redness, swelling, or masses, exudates, or evidence of obstruction, uvula midline. Mucous membranes moist. Neck: Trachea midline, no thyromegaly or masses palpated, and no cervical lymphadenopathy. Supple, full range of motion without nuchal rigidity, or vertebral point tenderness. No Meningismus. Chest/axilla: Normal chest wall appearance and motion. Nontender with no deformity. No lesions are appreciated. Cardiovascular: Regular rate and rhythm with a normal S1 and S2. No gallops, murmurs, or rubs. Normal PMI, no JVD. No pulse deficits. Respiratory: Lungs have equal breath sounds bilaterally, clear to auscultation and percussion. No rales, rhonchi or wheezes noted. No increased work of breathing, no retractions or nasal flaring. Abdomen/GI: Soft, non-tender, with normal bowel sounds. No distension or tympany. No guarding or rebound. No evidence of tenderness throughout. Back: No spinal tenderness. No costovertebral tenderness. Full range of motion. Skin: Warm, dry with normal turgor. Normal color with no rashes, no lesions, and no evidence of cellulitis. MS/ Extremity: Pulses equal, no cyanosis. Neurovascular intact. Full, normal range of motion. Neuro: Awake and alert, GCS 15, oriented to person, place, time, and situation. Cranial nerves II-XII grossly intact. Motor strength 5/5 in all extremities. Sensory grossly intact. Cerebellar exam normal. Normal gait. Psych: Awake, alert, with orientation to person, place and time. Behavior, mood, and affect are within normal limits. Vital Signs: 12:44 BP 120 / 79; Pulse 113; Resp 16 S; Temp 98.3; Pulse Ox 100% on R/A; Weight 113.4 kg; iw Height 5 ft. 6 in. (167.64 cm); 12:44 Body Mass Index 40.35 (113.40 kg, 167.64 cm) Kelle Coma Score: 13:00 Eye Response: spontaneous(4). Verbal Response: oriented(5). Motor Response: obeys mg2 commands(6). Total: 15. MDM: 12:47 Patient medically screened. [facility] 13:08 Data reviewed: vital signs, nurses notes. [facility] Administered Medications: No medications were administered Disposition: 03/28/19 13:09 Discharged to Home. Impression: Weakness, Conversion disorder with seizures or convulsions. - Condition is Stable. - Discharge Instructions: Nonepileptic Seizures, Weakness, Weakness, [id number]. - Work release form, Medication Reconciliation Form, Thank You Letter, Antibiotic Education, Prescription Opioid Use form. - Follow up: Private Physician; When: 2 - 3 days; Reason: Recheck today's complaints, Continuance of care, Re-evaluation by your physician. Follow up: Avni Roberto MD; When: 2 - 3 days; Reason: Recheck today's complaints, Re-evaluation by your physician. - Problem is new. - Symptoms have improved. Signatures: Steven Herrera MD MD cha Williams, Irene, RN RN Kingston Olivo RN RN mg2 Corrections: (The following items were deleted from the chart) 13:27 13:09 03/28/2019 13:09 Discharged to Home. Impression: Weakness; Conversion disorder andrez with seizures or convulsions. Condition is Stable. Forms are Medication Reconciliation Form, Thank You Letter, Antibiotic Education, Prescription Opioid Use. Follow up: Private Physician; When: 2 - 3 days; Reason: Recheck today's complaints, Continuance of care, Re-evaluation by your physician. Problem is new. Symptoms have improved. andrez 13:37 13:27 03/28/2019 13:09 Discharged to Home. Impression: Weakness; Conversion disorder mg2 with seizures or convulsions. Condition is Stable. Discharge Instructions: Nonepileptic Seizures, Weakness, Weakness, [id number]. Forms are Medication Reconciliation Form, Thank You Letter, Antibiotic Education, Prescription Opioid Use, Work release form. Follow up: Private Physician; When: 2 - 3 days; Reason: Recheck today's complaints, Continuance of care, Re-evaluation by your physician. Follow up: Avni Roberto; When: 2 - 3 days; Reason: Recheck today's complaints, Re-evaluation by your physician. Problem is new. Symptoms have improved. andrez
[2019-03-28 13:42] VITALS: BP 120/79; TEMP 98.3; O2SAT 100
== END 2019-03-28 13:37 | disposition home or self-care (01) ==
LOC: ER 12:34
DX: F44.5 Conversion disorder with seizures or convulsions (principal)
CPT/HCPCS: 99284

== ENCOUNTER 2019-12-30 15:19 | Emergency (ER) | payer SELFPAY ==
--- NOTE | 2019-12-30 15:43 | EDPHYS ---
Physician Documentation [facility] Name: Oswaldo Moore Age: 24 yrs Sex: Male : 1995 Arrival Date: 12/30/2019 Time: 15:20 Bed 15 Private MD: ED Physician Wilberto Sharma HPI: 12/29 15:47 This 24 yrs old Black Male presents to ER via Ambulatory with complaints of Rash. snw 15:47 The patient's rash thought to be caused by Dermatitis an unknown cause. The rash is snw located on the back and face. The rash can be described as pustular. Onset: The symptoms/episode began/occurred suddenly, 2 day(s) ago, and became persistent. Severity of symptoms: At their worst the symptoms were mild in the emergency department the symptoms are unchanged Pain is currently a 1 / 10. Treatment given at home: none. The patient has not experienced similar symptoms in the past. It is unknown whether or not the patient has recently seen a physician. Historical: - Allergies: 15:40 No Known Allergies; aj1 - Home Meds: 15:40 None [Active]; aj1 - PMHx: 15:40 Asthma; Seizures; aj1 - PSHx: 15:40 None; aj1 - Immunization history:: Flu vaccine is up to date. - Social history:: Smoking status: Patient reports the use of cigarette tobacco products, smokes one-half pack cigarettes per day. ROS: 15:45 Constitutional: Negative for fever, chills, and weight loss, Eyes: Negative for injury, snw pain, redness, and discharge, ENT: Negative for injury, pain, and discharge, Neck: Negative for injury, pain, and swelling, Cardiovascular: Negative for chest pain, palpitations, and edema, Respiratory: Negative for shortness of breath, cough, wheezing, and pleuritic chest pain, Abdomen/GI: Negative for abdominal pain, nausea, vomiting, diarrhea, and constipation, Back: Negative for injury and pain, : Negative for injury, bleeding, discharge, and swelling, MS/Extremity: Negative for injury and deformity, Neuro: Negative for headache, weakness, numbness, tingling, and seizure, Psych: Negative for depression, anxiety, suicide ideation, homicidal ideation, and hallucinations. 15:45 Skin: Positive for rash, of the back and face. Exam: 15:43 Constitutional: This is a well developed, well nourished patient who is awake, alert, snw and in no acute distress. Eyes: Pupils equal round and reactive to light, extra-ocular motions intact. Lids and lashes normal. Conjunctiva and sclera are non-icteric and not injected. Cornea within normal limits. Periorbital areas with no swelling, redness, or edema. ENT: Nares patent. No nasal discharge, no septal abnormalities noted. Tympanic membranes are normal and external auditory canals are clear. Oropharynx with no redness, swelling, or masses, exudates, or evidence of obstruction, uvula midline. Mucous membranes moist. Neck: Trachea midline, no thyromegaly or masses palpated, and no cervical lymphadenopathy. Supple, full range of motion without nuchal rigidity, or vertebral point tenderness. No Meningismus. Chest/axilla: Normal chest wall appearance and motion. Nontender with no deformity. No lesions are appreciated. Cardiovascular: Regular rate and rhythm with a normal S1 and S2. No gallops, murmurs, or rubs. Normal PMI, no JVD. No pulse deficits. Respiratory: Lungs have equal breath sounds bilaterally, clear to auscultation and percussion. No rales, rhonchi or wheezes noted. No increased work of breathing, no retractions or nasal flaring. Abdomen/GI: Soft, non-tender, with normal bowel sounds. No distension or tympany. No guarding or rebound. No evidence of tenderness throughout. Back: No spinal tenderness. No costovertebral tenderness. Full range of motion. MS/ Extremity: Pulses equal, no cyanosis. Neurovascular intact. Full, normal range of motion. Neuro: Awake and alert, GCS 15, oriented to person, place, time, and situation. Cranial nerves II-XII grossly intact. Motor strength 5/5 in all extremities. Sensory grossly intact. Cerebellar exam normal. Normal gait. Psych: Awake, alert, with orientation to person, place and time. Behavior, mood, and affect are within normal limits. 15:43 Head/face: Noted is rash, pustular, pruritic. 15:43 Skin: Appearance: normal except for affected area, rash can be described as pustular, on the back and face. Vital Signs: 15:28 BP 112 / 92; Pulse 115; Resp 18; Temp 98.0; Pulse Ox 100% on R/A; Weight 108.86 kg (R); aj1 Height 5 ft. 6 in. (167.64 cm) (R); Pain 3/10; 15:28 Body Mass Index 38.74 (108.86 kg, 167.64 cm) aj1 MDM: 15:42 Patient medically screened. snw 15:45 Data reviewed: vital signs, nurses notes. Data interpreted: Pulse oximetry: on room air snw is 100 %. Interpretation: normal. Counseling: I had a detailed discussion with the patient and/or guardian regarding: the historical points, exam findings, and any diagnostic results supporting the discharge/admit diagnosis, the presence of at least one elevated blood pressure reading (>120/80) during this emergency department visit, the need for outpatient follow up, to return to the emergency department if symptoms worsen or persist or if there are any questions or concerns that arise at home. Special discussion: I have referred the patient to see his PCP for further evaluation of high blood pressure. Based on the history and exam findings, there is no indication for further emergent testing or inpatient evaluation. I discussed with the patient/guardian the need to see the primary care provider for further evaluation of the symptoms. Administered Medications: 15:57 Drug: Doxycycline 100 mg Route: PO; aj1 15:57 Drug: ZyrTEC - Cetirizine 10 mg Route: PO; aj1 15:57 Drug: Pepcid 20 mg Route: PO; aj1 Disposition: 16:39 Co-signature as Attending Physician, Wilberto Sharma MD. rn Disposition: 12/30/19 15:42 Discharged to Home. Impression: Rash and other nonspecific skin eruption. - Condition is Stable. - Discharge Instructions: Allergies, Adult, Rash. - Prescriptions for Zyrtec 10 mg Oral Tablet - take 1 tablet by ORAL route once daily As needed; 20 tablet. Doxycycline Hyclate 100 mg Oral Tablet - take 1 tablet by ORAL route every 12 hours; 20 tablet. Pepcid 20 mg Oral Tablet - take 1 tablet by ORAL route once daily; 20 tablet. - Medication Reconciliation Form, Thank You Letter, Antibiotic Education, Prescription Opioid Use form. - Follow up: Emergency Department; When: As needed; Reason: Worsening of condition. Follow up: Private Physician; When: 2 - 3 days; Reason: Recheck today's complaints, Continuance of care, Re-evaluation by your physician. Signatures: Paula Pruett RN RN aj1 Sol Hayes, BUSINESS INFORMATION ANALYST-C BUSINESS INFORMATION ANALYST-Csnw Wliberto Sharma MD MD attorney at law: (The following items were deleted from the chart) 16:18 15:42 12/30/2019 15:42 Discharged to Home. Impression: Rash and other nonspecific skin aj1 eruption. Condition is Stable. Forms are Medication Reconciliation Form, Thank You Letter, Antibiotic Education, Prescription Opioid Use. Follow up: Emergency Department; When: As needed; Reason: Worsening of condition. Follow up: Private Physician; When: 2 - 3 days; Reason: Recheck today's complaints, Continuance of care, Re-evaluation by your physician. snw
--- NOTE | 2019-12-30 15:43 | ER ---
Nurse's Notes [facility] Name: Oswaldo Moore Age: 24 yrs Sex: Male : 1995 Arrival Date: 12/30/2019 Time: 15:20 Bed 15 Private MD: Diagnosis: Rash and other nonspecific skin eruption Presentation: 12/29 15:28 Chief complaint: Patient states: Rash to face and back for the past 3 days. Denies aj1 fever. Coronavirus screen: Client denies travel out of the [place] in the last 14 days. At this time, the client does not indicate any symptoms associated with coronavirus-19. Ebola Screen: Patient denies travel to an Ebola-affected area in the 21 days before illness onset. Initial Sepsis Screen: Does the patient meet any 2 criteria? No. Patient's initial sepsis screen is negative. Does the patient have a suspected source of infection? No. Patient's initial sepsis screen is negative. Risk Assessment: Do you want to hurt yourself or someone else? Patient reports no desire to harm self or others. Onset of symptoms was December 2019. 15:28 Method Of Arrival: Ambulatory aj1 15:28 Acuity: SUMAN 4 aj1 Triage Assessment: 15:40 General: Appears in no apparent distress. comfortable, Behavior is calm, cooperative, aj1 appropriate for age. Pain: Complains of pain in face and back Quality of pain is described as aching. Historical: - Allergies: 15:40 No Known Allergies; aj1 - Home Meds: 15:40 None [Active]; aj1 - PMHx: 15:40 Asthma; Seizures; aj1 - PSHx: 15:40 None; aj1 - Immunization history:: Flu vaccine is up to date. - Social history:: Smoking status: Patient reports the use of cigarette tobacco products, smokes one-half pack cigarettes per day. Screenin:43 Abuse screen: Denies threats or abuse. Denies injuries from another. Nutritional aj1 screening: No deficits noted. Tuberculosis screening: No symptoms or risk factors identified. 16:17 Fall Risk None identified. aj1 Assessment: 15:43 General: Appears in no apparent distress. comfortable, Behavior is calm, cooperative, aj1 appropriate for age. Pain: Complains of pain in back and face. Neuro: Level of Consciousness is awake, alert, obeys commands, Oriented to person, place, time, situation. Cardiovascular: Patient's skin is warm and dry. Respiratory: Airway is patent Respiratory effort is even, unlabored, Respiratory pattern is regular, symmetrical. GI: No signs and/or symptoms were reported involving the gastrointestinal system. : No signs and/or symptoms were reported regarding the genitourinary system. EENT: No signs and/or symptoms were reported regarding the EENT system. Derm: Rash noted that is vesicular, on back and face. Musculoskeletal: No signs and/or symptoms reported regarding the musculoskeletal system. Circulation, motion, and sensation intact. Vital Signs: 15:28 BP 112 / 92; Pulse 115; Resp 18; Temp 98.0; Pulse Ox 100% on R/A; Weight 108.86 kg (R); aj1 Height 5 ft. 6 in. (167.64 cm) (R); Pain 3/10; 15:28 Body Mass Index 38.74 (108.86 kg, 167.64 cm) aj1 ED Course: 15:20 Patient arrived in ED. as 15:21 Sol Hayes FNP-C is PHCP. snw 15:21 Wilberto Sharma MD is Attending Physician. snw 15:37 Triage completed. aj1 15:39 Paula Pruett, RN is Primary Nurse. aj1 15:40 Arm band placed on Patient placed in an exam room. aj1 15:43 Patient has correct armband on for positive identification. Bed in low position. Call aj1 light in reach. Side rails up X 1. 15:43 No provider procedures requiring assistance completed. aj1 16:17 Patient did not have IV access during this emergency room visit. aj1 Administered Medications: 15:57 Drug: Doxycycline 100 mg Route: PO; aj1 15:57 Drug: ZyrTEC - Cetirizine 10 mg Route: PO; aj1 15:57 Drug: Pepcid 20 mg Route: PO; aj1 Outcome: 15:42 Discharge ordered by . snw 16:17 Discharged to home ambulatory. aj1 16:17 Condition: good 16:17 Discharge instructions given to patient, Instructed on discharge instructions, follow up and referral plans. medication usage, Demonstrated understanding of instructions, follow-up care, medications, Prescriptions given X 3. 16:18 Patient left the ED. aj1 Signatures: Paula Pruett RN RN aj1 Sol Hayes, GENERAL ENGINEERING TEACHER-C GENERAL ENGINEERING TEACHER-Csnw Trish Liu as
[2019-12-30] MEDS ORDERED: DOXYCYCLINE 100 MG CAP PO ONE (16:04)
[2019-12-30] MEDS ORDERED: FAMOTIDINE 20 MG TAB ONE (16:04)
[2019-12-30] MEDS ORDERED: CETIRIZINE HCL 5 MG TABLET ONE (16:04)
[2019-12-30 16:38] VITALS: BP 112/92; TEMP 98; O2SAT 100
== END 2019-12-30 16:18 | disposition home or self-care (01) ==
LOC: ER 15:19
DX: R21 Rash and other nonspecific skin eruption (principal); F17.210 Nicotine dependence, cigarettes, uncomplicated
CPT/HCPCS: 99283

== ENCOUNTER 2020-12-14 13:35 | Emergency (ER) | payer SELFPAY ==
[2020-12-14] MEDS ORDERED: NA CHLORIDE 0.9% 1,000 ML ONE (14:47)
[2020-12-14] MEDS ORDERED: LEVETIRACETAM 500 MG/5 ML VIAL IV ONE (14:47)
[2020-12-14] MEDS ORDERED: NA CHLORIDE 0.9% 100 ML ONE (14:48)
--- NOTE | 2020-12-14 14:50 | RAD REPORT ---
EXAM DESCRIPTION: CT - CTHCSPWOC - 12/14/2020 2:42 pm CLINICAL HISTORY: Trauma, head and neck injury. PAIN COMPARISON: No comparisons TECHNIQUE: Axial 5 mm thick images of the head were obtained. Axial 2 mm thick images of the cervical spine were obtained with sagittal and coronal reconstruction images generated and reviewed. All CT scans are performed using dose optimization technique as appropriate and may include automated exposure control or mA/KV adjustment according to patient size. FINDINGS: CT HEAD WITHOUT CONTRAST: No acute hemorrhage, hydrocephalus or extra-axial collection is identified.No areas of brain edema or midline shift. Small foreign body within the subcutaneous tissues of the cheek on the right side. The paranasal sinuses and mastoids are clear.The calvarium is intact. CT CERVICAL SPINE WITHOUT CONTRAST: No fracture or subluxation.No prevertebral soft tissues swelling is identified. IMPRESSION: No acute intracranial or cervical spine findings.
[2020-12-14 15:14] LABS: Absolute Lymphocytes (CBC) 1.4 K/uL (0.7-4.9); Basophils % 0.2 % (0-1.3); Hematocrit 43.8 % (39.6-49.0); Lymphocytes % 10.1 % (15.3-44.8); MPV 7.9 fL (7.6-11.3); RBC Red Blood Cell Count 5.65 M/uL (4.33-5.43)
[2020-12-14 15:17] LABS: Potassium 3.4 mmol/L (3.5-5.1)
[2020-12-14 15:51] LABS: Barbiturates NEGATIVE (NEGATIVE); Benzodiazepines POSITIVE (NEGATIVE); Cocaine NEGATIVE (NEGATIVE); METHAMPHETAM NEGATIVE (NEGATIVE); Methadone NEGATIVE (NEGATIVE); Opiates NEGATIVE (NEGATIVE); Phencyclidine NEGATIVE (NEGATIVE); THC Cannibis POSITIVE (NEGATIVE)
[2020-12-14] MEDS ORDERED: LIDOCAINE 1% MPF 5 ML VIAL ONE (16:30)
[2020-12-14] MEDS ORDERED: TETANUS & DIPHTHERIA TOX,ADULT 0.5 ML VIAL ONE (16:31)
[2020-12-14] MEDS ORDERED: ACETAMINOPHEN 500 MG TAB ONE (17:45)
--- NOTE | 2020-12-14 17:54 | ER ---
Nurse's Notes [facility] Name: Oswaldo Moore Age: 25 yrs Sex: Male : 1995 Arrival Date: 12/14/2020 Time: 13:55 Bed 16 Private MD: Diagnosis: Other seizures;Laceration without foreign body of lip Presentation: 12/14 14:32 Chief complaint: Patient states: seizure. Ebola Screen: No symptoms or risks identified oh at this time. Initial Sepsis Screen: Does the patient meet any 2 criteria? No. Patient's initial sepsis screen is negative. Does the patient have a suspected source of infection? No. Patient's initial sepsis screen is negative. Risk Assessment: Do you want to hurt yourself or someone else? Patient reports no desire to harm self or others. Onset of symptoms was December 14, 2020. 14:32 Method Of Arrival: EMS: [facility] oh 14:32 Acuity: SUMAN 2 oh Triage Assessment: 14:36 General: Appears uncomfortable, Behavior is calm, cooperative. oh Historical: - PMHx: 14:33 Asthma; Seizures; oh - Immunization history:: Adult Immunizations up to date. - Social history:: Smoking status: unknown. Screenin:34 Abuse screen: Denies threats or abuse. Nutritional screening: No deficits noted. oh Tuberculosis screening: No symptoms or risk factors identified. Fall Risk Secondary diagnosis (15 points) seizures. Assessment: 14:33 Pain: Complains of pain in lips, mouth. Neuro: Reports a syncopal episode Seizure oh activity Seizure lasted approximately 5 minutes. Patient is post-ictal at this time. Vital Signs: 14:01 BP 121 / 59; Pulse 126; Resp 16; Temp 97.9; Pulse Ox 97% ; Weight 108.86 kg; Height 5 dh4 ft. 6 in. (167.64 cm); 18:14 BP 132 / 77; Pulse 76; Resp 17; Temp 97.6; Pulse Ox 100% on R/A; oh 14:01 Body Mass Index 38.74 (108.86 kg, 167.64 cm) dh4 ED Course: 13:55 Patient arrived in ED. eb 14:02 Toney Trejo NP is PHCP. pm1 14:02 Erika Draper MD is Attending Physician. pm1 14:31 Lucero Tineo, RN is Primary Nurse. oh 14:33 Triage completed. oh 14:35 Inserted saline lock: 20 gauge in left antecubital area, using aseptic technique. Blood oh collected. 14:35 Patient has correct armband on for positive identification. Bed in low position. Call oh light in reach. Side rails up X2. Adult w/ patient. Seizure precautions initiated. 14:41 CT Head C Spine In Process Unspecified. EDMS 17:52 Avni Roberto MD is Referral Physician. pm1 18:14 IV discontinued, bleeding controlled, Pressure dressing applied. oh 18:15 No provider procedures requiring assistance completed. oh Administered Medications: 14:25 Drug: NS 0.9% 1000 ml Route: IV; Rate: 1000 ml; Site: left antecubital; oh 14:25 Drug: Keppra (levETIRAcetam) 1000 mg Route: IV; Rate: calculated rate; Site: left oh antecubital; 16:13 Drug: Tetanus-Diphtheria Toxoid Adult 0.5 ml {Breast Buffer: [employer]. Exp: oh 06/13/2022. Lot #: [id number]. } Route: IM; Site: left deltoid; 17:30 Drug: Lidocaine (1 %) 5 ml {Note: administered by BOBCAT OPERATOR.} Volume: 5 ml; Route: oh Infiltration; 18:01 Drug: Tylenol 1000 mg Route: PO; oh Outcome: 17:52 Discharge ordered by MD. pm1 18:14 Discharged to home with family. oh 18:14 Condition: stable 18:14 Discharge instructions given to patient. 18:15 Patient left the ED. oh Signatures: Dispatcher [employer] [facility] Toney Trejo NP BOBCAT OPERATOR pm1 Sophia Tovar Donald formerly [facility], [facility] Lucero Tineo, RN RN oh
--- NOTE | 2020-12-14 17:54 | EDPHYS ---
Physician Documentation [facility] Name: Oswaldo Moore Age: 25 yrs Sex: Male : 1995 Arrival Date: 12/14/2020 Time: 13:55 Bed 16 Private MD: ED Physician Erika Draper HPI: 12/14 14:31 This 25 yrs old Black Male presents to ER via EMS with complaints of Seizure. pm1 14:31 The patient presents after having a single isolated seizure, that lasted an unknown pm1 period of time, the episode(s) was witnessed, by a significant other, girlfriend. Character of seizure(s): Loss of consciousness: it is not known if the patient experienced loss of consciousness, Motor activity: generalized, Incontinence: none. Seizure onset: just prior to arrival. Context: occurred while the patient was standing, Contributing factors: Patient has not been taking seizure medications for the past year. He has been using street benzodiazepines to manage his seizures as needed. Seizure Hx: Seizure medications: No current prescribed medications. Using street benzodiazepines. Associated injury: Other: lower lip, laceration, 3 cm(s). Current symptoms: headache, that is mild. The patient has experienced similar episodes in the past, multiple times. The patient has not recently seen a physician. Historical: - PMHx: 14:33 Asthma; Seizures; oh - Immunization history:: Adult Immunizations up to date. - Social history:: Smoking status: unknown. ROS: 14:31 Constitutional: Negative for fever, chills, and weight loss. pm1 14:31 Cardiovascular: Negative for chest pain, palpitations, and edema, Respiratory: Negative for shortness of breath, cough, wheezing, and pleuritic chest pain, Abdomen/GI: Negative for abdominal pain, nausea, vomiting, diarrhea, and constipation. 14:31 MS/Extremity: Negative for injury and deformity. 14:31 Skin: Positive for laceration(s), of the lower lip. 14:31 Neuro: Positive for headache, Negative for numbness, tingling, weakness. 14:31 All other systems are negative. Exam: 14:31 Constitutional: This is a well developed, well nourished patient who is awake, alert, pm1 and in no acute distress. 14:31 Skin: Warm, dry with normal turgor. Normal color with no rashes, no lesions, and no evidence of cellulitis. MS/ Extremity: Pulses equal, no cyanosis. Neurovascular intact. Full, normal range of motion. 14:31 Head/face: Noted is no obvious of injury or deformity except contusion, that is superficial, of the outer aspect of right eyebrow. 14:31 ENT: Mouth: Lips: approximately 3 cm(s), lower lip, Laceration, irregular shaped. 14:31 Neck: Exam negative for acute changes, C-spine: vertebral tenderness, is not appreciated, ROM/movement: is normal. 14:31 Cardiovascular: Exam negative for acute changes, Rate: normal, Rhythm: regular, Pulses: no pulse deficits are appreciated. 14:31 Respiratory: Exam negative for acute changes, respiratory distress, shortness of breath. 14:31 Abdomen/GI: Inspection: abdomen appears normal, Palpation: abdomen is soft and non-tender, in all quadrants. 14:31 Neuro: Exam negative for acute changes, Orientation: is normal, Mentation: is normal, Motor: is normal, moves all fours, Gait: is steady, at a normal pace, without difficulty. Vital Signs: 14:01 BP 121 / 59; Pulse 126; Resp 16; Temp 97.9; Pulse Ox 97% ; Weight 108.86 kg; Height 5 dh4 ft. 6 in. (167.64 cm); 18:14 BP 132 / 77; Pulse 76; Resp 17; Temp 97.6; Pulse Ox 100% on R/A; oh 14:01 Body Mass Index 38.74 (108.86 kg, 167.64 cm) dh4 Laceration: 17:48 Wound Repair of 3cm ( 1.2in ) subcutaneous laceration to lower lip. Irregularly pm1 shaped.. Distal neuro/vascular/tendon intact. Anesthesia: Local anesthetic administered with 1 mls of 1% lidocaine. Wound prep: Extensive cleansing with hibiclenz by me, Wound irrigation with saline by me, Wound explored extensively, Copious irrigation. Skin closed with 8 4-0 chromic gut using simple sutures and sterile technique. Patient tolerated well. MDM: 14:19 Patient medically screened. pm1 17:48 Data reviewed: vital signs. Data interpreted: Pulse oximetry: on room air is 97 %. pm1 Interpretation: normal. Counseling: I had a detailed discussion with the patient and/or guardian regarding: the historical points, exam findings, and any diagnostic results supporting the discharge/admit diagnosis, lab results, radiology results, the need for outpatient follow up, a neurologist, to return to the emergency department if symptoms worsen or persist or if there are any questions or concerns that arise at home. 12/14 14:18 Order name: CBC with Diff; Complete Time: 15:53 pm1 12/14 14:18 Order name: BMP; Complete Time: 15:20 pm1 12/14 14:18 Order name: CT Head C Spine; Complete Time: 14:54 pm1 12/14 14:19 Order name: Glucose, Ancillary Testing; Complete Time: 14:47 EDMS 12/14 14:19 Order name: UDS; Complete Time: 15:53 pm1 12/14 14:18 Order name: EKG; Complete Time: 14:19 pm1 12/14 14:18 Order name: EKG - Nurse/Tech; Complete Time: 14:32 pm1 12/14 14:18 Order name: IV Saline Lock; Complete Time: 14:32 pm1 12/14 14:19 Order name: Urine Dipstick-Ancillary (obtain specimen) pm1 12/14 14:20 Order name: Dressing - Wound; Complete Time: 17:56 pm1 12/14 14:20 Order name: Gloves, Sterile; Complete Time: 16:12 pm1 12/14 14:20 Order name: Setup Suture Tray; Complete Time: 16:12 pm1 Administered Medications: 14:25 Drug: NS 0.9% 1000 ml Route: IV; Rate: 1000 ml; Site: left antecubital; oh 14:25 Drug: Keppra (levETIRAcetam) 1000 mg Route: IV; Rate: calculated rate; Site: left oh antecubital; 16:13 Drug: Tetanus-Diphtheria Toxoid Adult 0.5 ml {Charger Operator Helper: [employer]. Exp: oh 06/13/2022. Lot #: [id number]. } Route: IM; Site: left deltoid; 17:30 Drug: Lidocaine (1 %) 5 ml {Note: administered by ARTIFICIAL INSEMINATION TECHNICIAN.} Volume: 5 ml; Route: oh Infiltration; 18:01 Drug: Tylenol 1000 mg Route: PO; oh Disposition Summary: 12/14/20 17:52 Discharge Ordered Location: Home pm1 Problem: new pm1 Symptoms: have improved pm1 Condition: Stable pm1 Diagnosis - Other seizures pm1 - Laceration without foreign body of lip pm1 Followup: pm1 - With: Emergency Department - When: As needed - Reason: Worsening of condition Followup: pm1 - With: Private Physician - When: 2 - 3 days - Reason: Recheck today's complaints, Continuance of care, Re-evaluation by your physician Followup: pm1 - With: Avni Roberto MD - When: 2 - 3 days - Reason: Recheck today's complaints, Continuance of care, Re-evaluation by your physician Discharge Instructions: - Discharge Summary Sheet pm1 - Mouth Laceration pm1 - Seizure, Adult pm1 Forms: - Medication Reconciliation Form pm1 - Thank You Letter pm1 - Antibiotic Education pm1 - Prescription Opioid Use pm1 Prescriptions: - Augmentin 875-125 mg Oral Tablet - take 1 tablet by ORAL route every 12 hours for 10 days; 20 tablet; Refills: 0, pm1 Product Selection Permitted - Keppra 500 mg Oral Tablet - take 1 tablet by ORAL route every 12 hours; 20 tablet; Refills: 0, Product pm1 Selection Permitted Addendum: 12/19/2020 03:05 Co-signature as Attending Physician, Erika paul a2 Signatures: Dispatcher [employer] Toney De La Torre, ARTIFICIAL INSEMINATION TECHNICIAN ARTIFICIAL INSEMINATION TECHNICIAN pm1 Erika Draper MD MD oh2 Lucero Tineo, RN RN oh
[2020-12-14 18:24] VITALS: BP 132/77; TEMP 97.6; O2SAT 100
== END 2020-12-14 18:15 | disposition home or self-care (01) ==
LOC: ER 13:35
PROC: 0CQ1XZZ Repair Lower Lip, External Approach (ICD-10-PCS; principal; 2020-12-14)
DX: S01.511A Laceration without foreign body of lip, initial encounter (principal); Z23 Encounter for immunization
CPT/HCPCS: 36415; 70450; 72125; 80048; 80307; 82947; 85025; 90471; 90714; 96374; 99284; J1953; J7030

== ENCOUNTER 2022-09-16 10:38 | Emergency (ER) | payer SELFPAY ==
--- OUTSIDE RECORDS SUMMARY | 2022-09-16 10:42 | XMS REPORT | Continuity of Care Document ---
:1995 Author Organization [facility] t Address [address] [facility] [address] [place] [id number] Care Team Providers Name Role Phone Unavailable Unavailable Unavailable Problems This patient has no known problems. Allergies, Adverse Reactions, Alerts This patient has no known allergies or adverse reactions. Medications This patient has no known medications. Procedures This patient has no known procedures. Encounters Start End Encounter Admission Attending Care Care Encounter Source Date/Time Date/Time Type Type Clinicians Facility Department ID 2022-09-11 2022-09-11 Outpatient [facility] [id number] Miguel 11:01:46 11:01:46 0630 F Cruz 2022-09-09 2022-09-09 Outpatient [facility] [id number] Miguel 15:30:36 15:30:36 [id number] F Cruz Results This patient has no known results.
--- NOTE | 2022-09-16 11:49 | ER ---
Nurse's Notes [facility] Name: Oswaldo Moore Age: 27 yrs Sex: Male : 1995 Arrival Date: 09/16/2022 Time: 10:38 Bed 3 Private MD: Diagnosis: Other seizures Presentation: 09/16 10:37 Chief complaint: EMS states: Pt put on keppra 2 weeks ago after having a seizure, was nj1 taking Dilantin before. Pt had a 2-4 grand mal seizure, postictal upon EMS arrival. 10:37 Coronavirus screen: Vaccine status: Patient reports being unvaccinated. Ebola Screen: nj1 Patient denies travel to an Ebola-affected area in the 21 days before illness onset. Initial Sepsis Screen: Does the patient meet any 2 criteria? HR > 90 bpm. No. Patient's initial sepsis screen is negative. Does the patient have a suspected source of infection? No. Patient's initial sepsis screen is negative. Risk Assessment: Do you want to hurt yourself or someone else? Patient reports no desire to harm self or others. Onset of symptoms was September 16, 2022. 10:37 Method Of Arrival: EMS: [facility] nj1 10:37 Acuity: SUMAN 3 nj1 10:57 Care prior to arrival: Medication(s) given: Normal saline infusion, 200ml, IVF to be nj1 continued per Dr Lopez. Historical: - Allergies: 10:57 No Known Allergies; nj1 - PMHx: 10:51 Asthma; Seizures; Hypertensive disorder; Depressive disorder; nj1 - Immunization history:: Client reports having NOT received the Covid vaccine. - Social history:: Smoking status: Reported history of juuling and/or vaping. Screenin:59 [facility] ED Fall Risk Assessment (Adult) History of falling in the last 3 months, nj1 including since admission No falls in past 3 months (0 pts) Confusion or Disorientation No (0 pts) Intoxicated or Sedated No (0 pts) Impaired Gait No (0 pts) Mobility Assist Device Used No (0 pt) Altered Elimination No (0 pt) Score/Fall Risk Level 0 - 2 = Low Risk Oriented to surroundings, Maintained a safe environment, Hourly rounding (assess needs \T\ fall precautionary measures) done. Abuse screen: Denies threats or abuse. Denies injuries from another. Nutritional screening: No deficits noted. Tuberculosis screening: No symptoms or risk factors identified. Assessment: 10:40 General: Appears in no apparent distress. comfortable, Behavior is calm, cooperative, nj appropriate for age. 10:40 Pain: Complains of pain in tongue Pain currently is 10 out of 10 on a pain scale. nj1 Neuro: Level of Consciousness is awake, alert, obeys commands, Oriented to person, place, time, situation. Cardiovascular: Patient's skin is warm and dry. Rhythm is sinus tachycardia. Respiratory: Airway is patent Respiratory effort is even, unlabored. 11:55 Reassessment: Patient appears in no apparent distress at this time. Patient and/or nj1 family updated on plan of care and expected duration. Pain level reassessed. Patient is alert, oriented x 3, equal unlabored respirations, skin warm/dry/pink. Patient states feeling better. Patient states symptoms have improved. Vital Signs: 10:37 BP 120 / 71; Pulse 121; Resp 24; Temp 98.7(O); Pulse Ox 97% on R/A; Weight 133.81 kg; nj1 Height 5 ft. 6 in. ; Pain 10/10; 11:01 BP 130 / 65; Pulse 114; Resp 24; Pulse Ox 96% on R/A; nj1 11:21 BP 125 / 69; Pulse 102; Resp 19; Pulse Ox 99% on R/A; nj1 11:54 BP 129 / 86; Pulse 94; Resp 19; Pulse Ox 96% ; nj1 10:37 Body Mass Index 47.61 (133.81 kg, 167.64 cm) nj1 10:37 Pain Scale: Adult nj ED Course: 10:40 Patient has correct armband on for positive identification. Bed in low position. Call [facility] light in reach. Adult w/ patient. Seizure precautions initiated. 10:41 Patient arrived in ED. eb 10:41 Jaya Lopez DO is Attending Physician. ms3 10:49 Desiree Abarca, DEMETRIA is Primary Nurse. nj1 10:51 Triage completed. nj1 10:52 Arm band placed on right wrist. nj1 11:48 Avni Roberto MD is Referral Physician. ms3 11:55 No provider procedures requiring assistance completed. nj1 11:55 IV discontinued, intact, bleeding controlled. nj1 Administered Medications: No medications were administered Medication: 11:59 VIS not applicable for this client. nj1 Outcome: 11:49 Discharge ordered by . ms3 11:55 Discharged to home ambulatory. nj1 11:55 Condition: stable 11:55 Discharge instructions given to patient, Instructed on discharge instructions, follow up and referral plans. Demonstrated understanding of instructions, follow-up care. 11:59 Patient left the ED. nj1 Signatures: Sophia Tovar Marcus, DO DO ms3 Desiree Abarca, RN RN nj1 Corrections: (The following items were deleted from the chart) 10:58 10:37 BP 120 / 71; Pulse 121bpm; Resp 24bpm; Pulse Ox 97% RA; Temp 98.7F Oral; Pain nj1 12/22, Adult; nj1 11:01 11:01 BP 130 / 65; Pulse 114bpm; Resp 28bpm; Pulse Ox 96% RA; nj1 nj1
--- NOTE | 2022-09-16 11:49 | EDPHYS ---
Physician Documentation [facility] Name: Oswaldo Moore Age: 27 yrs Sex: Male : 1995 Arrival Date: 09/16/2022 Time: 10:38 Bed 3 Private MD: ED Physician Jaya Lopez HPI: 09/16 14:17 This 27 yrs old Black Male presents to ER via EMS with complaints of seizure. ms3 14:17 27-year-old male past medical history of asthma, seizures, hypertension, depression ms3 presents for seizure. On EMS arrival patient was postictal. Patient states his last seizure was 2 weeks ago and he was switched to Keppra by his primary care physician. EMS states patient's girlfriend informed him patient was a tonic-clonic seizure for approximately 3 to 4 minutes. EMS notes sinus tachycardia on monitor. Patient complains of left-sided tongue pain where he bit his tongue. Patient denies alleviating or inciting factors. Patient states he would like to be discharged.. Historical: - Allergies: 10:57 No Known Allergies; nj1 - PMHx: 10:51 Asthma; Seizures; Hypertensive disorder; Depressive disorder; nj1 - Immunization history:: Client reports having NOT received the Covid vaccine. - Social history:: Smoking status: Reported history of juuling and/or vaping. ROS: 14:17 Constitutional: Negative for fever, and chills. Neck: Negative for injury, pain, and ms3 swelling, Cardiovascular: Negative for chest pain, and palpitations. Respiratory: Negative for shortness of breath, cough, wheezing, and pleuritic chest pain, Abdomen/GI: Negative for abdominal pain, nausea, vomiting, diarrhea, and constipation, MS/Extremity: Negative for injury and deformity, Skin: Negative for injury, rash, and discoloration. 14:17 Neuro: Positive for headache. 14:17 All other systems are negative. Exam: 14:17 Constitutional: This is a well developed, well nourished patient who is awake, alert, ms3 and in no acute distress. Head/Face: Normocephalic, atraumatic. Neck: Trachea midline, no cervical lymphadenopathy. Supple, full range of motion without nuchal rigidity, or vertebral point tenderness. No Meningismus. Chest/axilla: Normal chest wall appearance and motion. Nontender with no deformity. Cardiovascular: Regular rate and rhythm with a normal S1 and S2. No gallops, murmurs, or rubs. Normal PMI, no JVD. No pulse deficits. Respiratory: Lungs have equal breath sounds bilaterally, clear to auscultation and percussion. No rales, rhonchi or wheezes noted. No increased work of breathing, no retractions or nasal flaring. Abdomen/GI: Soft, non-tender, with normal bowel sounds. No distension or tympany. No guarding or rebound. No evidence of tenderness throughout. Skin: Warm, dry with normal turgor. Normal color with no rashes, no lesions, and no evidence of cellulitis. 14:17 ENT: Abrasion to left tongue. Vital Signs: 10:37 BP 120 / 71; Pulse 121; Resp 24; Temp 98.7(O); Pulse Ox 97% on R/A; Weight 133.81 kg; nj1 Height 5 ft. 6 in. ; Pain 10/10; 11:01 BP 130 / 65; Pulse 114; Resp 24; Pulse Ox 96% on R/A; nj1 11:21 BP 125 / 69; Pulse 102; Resp 19; Pulse Ox 99% on R/A; nj1 11:54 BP 129 / 86; Pulse 94; Resp 19; Pulse Ox 96% ; nj1 10:37 Body Mass Index 47.61 (133.81 kg, 167.64 cm) nj1 10:37 Pain Scale: Adult nj1 MDM: 10:52 Patient medically screened. ms3 14:17 Differential diagnosis: seizure. Data reviewed: vital signs, nurses notes, and as a ms3 result, I will discharge patient. 14:32 Care significantly affected by the following chronic conditions: Hypertension. ms3 Counseling: I had a detailed discussion with the patient and/or guardian regarding: the historical points, exam findings, and any diagnostic results supporting the discharge/admit diagnosis, to return to the emergency department if symptoms worsen or persist or if there are any questions or concerns that arise at home. Response to treatment: the patient's symptoms have resolved after treatment, the patient's blood pressure is in an acceptable range, mental status has returned to baseline, the patient is not tachycardic, and as a result, I will discharge patient. Special discussion: I discussed with the patient/guardian in detail that at this point there is no indication for admission to the hospital. It is understood, however, that if the symptoms persist or worsen the patient needs to return immediately for re-evaluation. Administered Medications: No medications were administered Disposition Summary: 09/16/22 11:49 Discharge Ordered Location: Home ms3 Condition: Stable ms3 Diagnosis - Other seizures ms3 Followup: ms3 - With: Avni Roberto MD - When: 2 - 3 days - Reason: Recheck today's complaints Discharge Instructions: - Discharge Summary Sheet ms3 - Seizure, Adult ms3 Forms: - Medication Reconciliation Form ms3 - Thank You Letter ms3 - Antibiotic Education ms3 - Prescription Opioid Use ms3 - [email or web address] ms3 Signatures: Jaya Lopez DO DO ms3 Desiree Abarca, RN RN nj1
[2022-09-16 12:07] VITALS: BP 129/86; O2SAT 96
== END 2022-09-16 11:59 | disposition home or self-care (01) ==
LOC: ER 10:38
DX: G40.89 Other seizures (principal)
CPT/HCPCS: 99283

== ENCOUNTER 2023-01-18 09:24 | Emergency (ER) | payer SELFPAY ==
--- OUTSIDE RECORDS SUMMARY | 2023-01-18 09:26 | XMS REPORT | Continuity of Care Document ---
:1995 Author Organization [facility] t Address [address] [facility] [address] [place] [address] Care Team Providers Name Role Phone Unavailable Unavailable Unavailable Problems This patient has no known problems. Allergies, Adverse Reactions, Alerts This patient has no known allergies or adverse reactions. Medications This patient has no known medications. Procedures This patient has no known procedures. Encounters Start End Encounter Admission Attending Care Care Encounter Source Date/Time Date/Time Type Type Clinicians Facility Department ID 2023-01-15 2023-01-15 Outpatient [facility] [id number] Miguel 13:03:04 13:03:04 [id number] F Cruz 2022-09-23 2022-09-23 Outpatient [facility] SFA [id number] Miguel 13:47:04 13:47:04 [id number] F Cruz 2022-09-11 2022-09-11 Outpatient SFA SFA [id number] Miguel 11:01:46 11:01:46 [id number] F Cruz 2022-09-09 2022-09-09 Outpatient SFA SFA [id number] Miguel 15:30:36 15:30:36 [id number] Cruz Results This patient has no known results.
--- NOTE | 2023-01-18 10:44 | RAD REPORT ---
EXAM DESCRIPTION: RAD - Chest Single View - 01/18/2023 10:37 am CLINICAL HISTORY: COUGH Chest pain. COMPARISON: Chest Single View dated 09/23/2016; CHEST SINGLE VIEW dated 09/08/2013; CHEST SINGLE VIEW dated 09/05/2013 FINDINGS: Portable technique limits examination quality. The lungs are grossly clear. The heart is normal in size. No displaced fractures. IMPRESSION: No acute intrathoracic process suspected.
--- NOTE | 2023-01-18 10:47 | EDPHYS ---
Physician Documentation [facility] Name: Oswaldo Moore Age: 28 yrs Sex: Male : 1995 Arrival Date: 01/18/2023 Time: 09:24 Bed 5 Private MD: ED Physician Wilberto Sharma HPI: 01/18 09:32 This 28 yrs old Black Male presents to ER via Ambulatory with complaints of Chest Pain, jh7 Cough, Sore Throat. 09:32 Onset: The symptoms/episode began/occurred yesterday. Associated signs and symptoms: jh7 Pertinent positives: chest pain, congestion, cough, fever, shortness of breath, sore throat, Pertinent negatives: abdominal pain. 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 Reports that he believes that he has the flu.. Historical: - Allergies: 09:32 No Known Allergies; ll1 - PMHx: 09:32 Asthma; depressive disorder; Hypertensive disorder; Seizures; ll1 - Immunization history:: Adult Immunizations up to date. - Social history:: Smoking status: Patient denies any tobacco usage or history of. ROS: 09:32 Eyes: Negative for injury, pain, redness, and discharge, Neck: Negative for injury, jh7 pain, and swelling, Abdomen/GI: Negative for abdominal pain, nausea, vomiting, diarrhea, and constipation, Back: Negative for injury and pain, MS/Extremity: Negative for injury and deformity, Skin: Negative for injury, rash, and discoloration, Neuro: Negative for headache, weakness, numbness, tingling, and seizure, 09:32 Constitutional: Positive for body aches, chills, fever, 09:32 ENT: Positive for sinus congestion, sore throat, 09:32 Cardiovascular: Positive for chest pain, Negative for orthopnea, palpitations, 09:32 Respiratory: Positive for cough, shortness of breath, Negative for wheezing, 09:32 All other systems are negative, Exam: 09:32 Constitutional: This is a well developed, well nourished patient who is awake, alert, jh7 and in no acute distress. Head/Face: Normocephalic, atraumatic. Neck: Trachea midline, no thyromegaly or masses palpated, and no cervical lymphadenopathy. Supple, full range of motion without nuchal rigidity, or vertebral point tenderness. No Meningismus. Cardiovascular: Regular rate and rhythm with a normal S1 and S2. No gallops, murmurs, or rubs. Normal PMI, no JVD. No pulse deficits. Respiratory: Lungs have equal breath sounds bilaterally, clear to auscultation and percussion. No rales, rhonchi or wheezes noted. No increased work of breathing, no retractions or nasal flaring. Abdomen/GI: Soft, non-tender, with normal bowel sounds. No distension or tympany. No guarding or rebound. No evidence of tenderness throughout. Back: No spinal tenderness. No costovertebral tenderness. Full range of motion. Skin: Warm, dry with normal turgor. Normal color with no rashes, no lesions, and no evidence of cellulitis. MS/ Extremity: Pulses equal, no cyanosis. Neurovascular intact. Full, normal range of motion. Neuro: Awake and alert, GCS 15, oriented to person, place, time, and situation. Motor strength 5/5 in all extremities. Sensory grossly intact. Normal gait. 09:32 ENT: Posterior pharynx: erythema, that is mild, pooling of secretions, that are mild, Vital Signs: 09:36 BP 129 / 83; Pulse 118; Resp 19 S; Temp 98.9(O); Pulse Ox 99% on R/A; iw 11:01 BP 148 / 88; Pulse 114; Resp 19 S; Pulse Ox 97% ; kc6 MDM: 09:27 Patient medically screened. [facility] 10:50 Differential diagnosis: viral Infection, URI, bronchitis, pneumonia. Data reviewed: [facility] vital signs, nurses notes, radiologic studies, plain films. Care significantly affected by the following chronic conditions: Hypertension. Counseling: I had a detailed discussion with the patient and/or guardian regarding the historical points, exam findings, and any diagnostic results supporting the discharge/admit diagnosis, to return to the emergency department if symptoms worsen or persist or if there are any questions or concerns that arise at home. Special discussion: I discussed with the patient/guardian that the patient's current presentation does not indicate dosing of antibiotics. They should follow-up with their primary care provider and return if the symptoms persist or progress. ED course: Patient seen walking around the ER throughout his visit and was caught attempting to have sex with his girlfriend in the restroom. Symptoms/complaints out of proportion to exam findings.. 01/18 09:34 Order name: Flu; Complete Time: 10:31 jh7 01/18 09:34 Order name: Strep; Complete Time: 10:27 jh7 01/18 09:45 Order name: SARS-COV-2 RT PCR; Complete Time: 10:27 EDWI 01/18 10:29 Order name: Throat Culture EDWI 01/18 09:34 Order name: XRAY Chest (1 view); Complete Time: 10:46 7 Administered Medications: No medications were administered Disposition: 11:07 Co-signature as Attending Physician, Wilberto Sharma MD I reviewed the patient's care rn provided by the Advanced Practice Provider and agree with the diagnosis and treatment plan. Disposition Summary: 01/18/23 10:47 Discharge Ordered Notes: Location: Home [facility] Problem: new [facility] Symptoms: are unchanged [facility] Condition: Stable [facility] Diagnosis - Acute upper respiratory infection, unspecified [facility] Followup: [facility] - With: Private Physician - When: 2 - 3 days - Reason: Recheck today's complaints Discharge Instructions: - Discharge Summary Sheet [facility] - Upper Respiratory Infection, Adult [facility] - Viral Respiratory Infection [facility] Forms: - Medication Reconciliation Form [facility] - Thank You Letter [facility] - Patient Portal Instructions [facility] - Leadership Thank You Letter [facility] Prescriptions: - Tessalon Perles 100 mg Oral Capsule - take 1 capsule ORAL route every 8 hours As needed; 15 capsule; Refills: 0, jh7 Product Selection Permitted Signatures: Dispatcher [employer] Wilberto Mccracken MD MD rn Lewis, Lynsay, RN RN [facility] Kaylyn Ac FNP SAMPLE CLERK [facility] Corrections: (The following items were deleted from the chart) 09:45 09:35 SARS-COV-2 Antigen Rapid+I.LAB.BRZ ordered. [facility]
--- NOTE | 2023-01-18 10:47 | ER ---
Nurse's Notes [facility] Name: Oswaldo Moore Age: 28 yrs Sex: Male : 1995 Arrival Date: 01/18/2023 Time: 09:24 Bed 5 Private MD: Diagnosis: Acute upper respiratory infection, unspecified Presentation: 01/18 09:32 Chief complaint: Patient states: CP, sore throat, cough. Coronavirus screen: Client ll1 denies travel out of the [place] in the last 14 days. cough unrelated to allergies, fatigue, muscle pain, sore throat, Client presents with at least one sign or symptom that may indicate coronavirus-19. Standard/surgical mask placed on the client. Ebola Screen: Patient denies travel to an Ebola-affected area in the 21 days before illness onset. Initial Sepsis Screen: Does the patient meet any 2 criteria? No. Patient's initial sepsis screen is negative. Does the patient have a suspected source of infection? Yes: Productive cough/pneumonia. Risk Assessment: Do you want to hurt yourself or someone else? Patient reports no desire to harm self or others. Onset of symptoms was January 17, 2023. 09:32 Method Of Arrival: Ambulatory ll1 09:32 Acuity: SUMAN 4 ll1 Historical: - Allergies: 09:32 No Known Allergies; ll1 - PMHx: 09:32 Asthma; depressive disorder; Hypertensive disorder; Seizures; ll1 - Immunization history:: Adult Immunizations up to date. - Social history:: Smoking status: Patient denies any tobacco usage or history of. Screenin:37 [facility] ED Fall Risk Assessment (Adult) Score/Fall Risk Level 0 - 2 = Low Risk. Abuse iw screen: Denies threats or abuse. Denies injuries from another. Nutritional screening: No deficits noted. Tuberculosis screening: No symptoms or risk factors identified. Assessment: 09:36 General: Appears in no apparent distress. Behavior is calm, cooperative. Pain:. Neuro: iw Level of Consciousness is awake, alert, obeys commands, Oriented to person, place, time, situation, Moves all extremities. Full function. Cardiovascular: Patient's skin is warm and dry. Respiratory: Reports cough that is pain with cough Airway is patent Respiratory effort is even, unlabored. Derm: Skin is intact, is healthy with good turgor. Musculoskeletal: Range of motion: intact in all extremities. 10:36 Reassessment: Patient appears in no apparent distress at this time. No changes from 6 previously documented assessment. Patient and/or family updated on plan of care and expected duration. Pain level reassessed. Patient is alert, oriented x 3, equal unlabored respirations, skin warm/dry/pink. Vital Signs: 09:36 BP 129 / 83; Pulse 118; Resp 19 S; Temp 98.9(O); Pulse Ox 99% on R/A; iw 11:01 BP 148 / 88; Pulse 114; Resp 19 S; Pulse Ox 97% ; kc6 ED Course: 09:27 Patient arrived in ED. 5 09:27 Kaylyn Ac FNP [facility] 7 09:27 Wilberto Sharma MD is Attending Physician. 7 09:31 Arm band placed on Patient placed in an exam room, on a stretcher. ll1 09:33 Triage completed. ll1 09:35 China Mi, RN is Primary Nurse. iw 09:37 Patient has correct armband on for positive identification. Provided Education on: iw swabs. Pulse ox on. NIBP on. 09:37 Patient maintains SpO2 saturation greater than 95% on room air. iw 09:46 No provider procedures requiring assistance completed. iw 10:39 XRAY Chest (1 view) In Process Unspecified. EDMS Administered Medications: No medications were administered Medication: 09:37 VIS not applicable for this client. iw Outcome: 10:47 Discharge ordered by . [facility] 11:01 Patient left the ED. ll1 Signatures: Dispatcher [employer] EDMS China Mi RN RN iw Lewis, Lynsay, RN RN 1 Kaylyn Ac FNP FNP jh7 Campbell, Kaitlyn, RN RN [facility] Mirian Bauer [facility]
[2023-01-18 11:05] VITALS: BP 129/83; TEMP 98.9; O2SAT 99
== END 2023-01-18 11:01 | disposition home or self-care (01) ==
LOC: ER 09:24
DX: J06.9 Acute upper respiratory infection, unspecified (principal); Z11.52 Encounter for screening for COVID-19
CPT/HCPCS: 71045; 87070; 87081; 87635; 87804; 99284

== ENCOUNTER 2023-01-18 11:24 | Emergency (ER) | payer SELFPAY ==
--- OUTSIDE RECORDS SUMMARY | 2023-01-18 11:27 | XMS REPORT | Continuity of Care Document ---
:1995 Author Organization [facility] t Address [address] [place] [address] Care Team Providers Name Role Phone Unavailable [...] Clinicians Facility Department ID 2023-01-15 2023-01-15 Outpatient [facility] [id number] Miguel 13:03:04 13:03:04 [id number] F Cruz 2022-09-23 2022-09-23 Outpatient SFA SFA [id number] Miguel 13:47:04 13:47:04 [id number] F Cruz 2022-09-11 2022-09-11 Outpatient SFA SFA [id number] Miguel 11:01:46 11:01:46 0630 F Cruz 2022-09-09 2022-09-09 Outpatient SFA SFA [id number] Miguel 15:30:36 15:30:36 [id number] F Cruz Results This patient has no known results.
--- NOTE | 2023-01-18 12:50 | ER ---
Nurse's Notes [facility] Name: Oswaldo Moore Age: 28 yrs Sex: Male : 1995 Arrival Date: 01/18/2023 Time: 11:24 Bed DX5 Private MD: Diagnosis: Cough Presentation: 01/18 11:34 Chief complaint: Patient states: pt was just d/c and dx with URI, pt states he coughed iw up blood in the bathroom. 11:38 Coronavirus screen: Client presents with at least one sign or symptom that may indicate iw coronavirus-19. Ebola Screen: Patient negative for fever greater than or equal to 101.5 degrees Fahrenheit, and additional compatible Ebola Virus Disease symptoms Patient denies exposure to infectious person. Patient denies travel to an Ebola-affected area in the 21 days before illness onset. No symptoms or risks identified at this time. Initial Sepsis Screen: Does the patient meet any 2 criteria? No. Patient's initial sepsis screen is negative. Does the patient have a suspected source of infection? No. Patient's initial sepsis screen is negative. Risk Assessment: Do you want to hurt yourself or someone else? Patient reports no desire to harm self or others. Onset of symptoms was January 18, 2023. 11:38 Method Of Arrival: Ambulatory iw 11:38 Acuity: SUMAN 3 iw Triage Assessment: 12:56 Pain: Denies pain. ll1 Historical: - Allergies: 11:37 No Known Allergies; iw - PMHx: 11:37 Asthma; depressive disorder; Hypertensive disorder; Seizures; iw - Immunization history:: Adult Immunizations unknown. - Social history:: Smoking status: . Screenin:50 [facility] ED Fall Risk Assessment (Adult) Score/Fall Risk Level 0 - 2 = Low Risk. Abuse iw screen: Denies threats or abuse. Denies injuries from another. Nutritional screening: No deficits noted. Tuberculosis screening: No symptoms or risk factors identified. Assessment: 11:50 General: Appears in no apparent distress. Behavior is calm, cooperative. Neuro: Level iw of Consciousness is awake, alert, obeys commands, Oriented to person, place, time, situation. Respiratory: Reports cough that is Respiratory effort is even, unlabored, Respiratory pattern is regular, symmetrical. Derm: Skin is intact, is healthy with good turgor. Musculoskeletal: Range of motion: intact in all extremities. 12:13 Reassessment: Patient appears in no apparent distress at this time. Patient and/or iw family updated on plan of care and expected duration. Pain level reassessed. pt states he feels dizzy, is asking for note saying he can be released from rehab facility. 12:55 Reassessment: No changes from previously documented assessment. Patient and/or family ll1 updated on plan of care and expected duration. Pain level reassessed. Patient is alert, oriented x 3, equal unlabored respirations, skin warm/dry/pink. Vital Signs: 11:37 BP 121 / 60; Pulse 130; Resp 19; Temp 98.7; Pulse Ox 100% on R/A; Weight 124.74 kg; iw 12:45 BP 119 / 70; Pulse 120; Resp 16; Pulse Ox 98% on R/A; em1 ED Course: 11:27 Patient arrived in ED. im 11:27 Kaylyn Ac FNP [facility] 11:27 Wilberto Sharma MD is Attending Physician. [facility] 11:32 Kaylyn Ac FNP is [facility] 11:32 Christofer Gomez MD is Attending Physician. [facility] 11:37 Arm band placed on. iw 11:38 Triage completed. iw 11:50 Chian Mi RN is Primary Nurse. iw 11:58 UDS Sent. iw 12:55 Patient has correct armband on for positive identification. Bed in low position. Call ll1 light in reach. Provided Education on: n/a. 12:55 No provider procedures requiring assistance completed. Patient did not have IV access ll1 during this emergency room visit. Administered Medications: No medications were administered Medication: 11:51 VIS not applicable for this client. iw Outcome: 12:49 Discharge ordered by . [facility] 12:55 Discharged to home ambulatory, ll1 12:55 Condition: stable 12:55 Discharge instructions given to patient, Instructed on discharge instructions, follow up and referral plans. Demonstrated understanding of instructions, follow-up care, 12:56 Patient left the ED. ll1 Signatures: China Mi RN RN Sha Liu em1 Sunil Mcmillan RN RN 1 Kaylyn Ac FNP [place] [id number] [place], Gilma im
--- NOTE | 2023-01-18 12:51 | EDPHYS ---
Physician Documentation [facility] Name: Oswaldo Moore Age: 28 yrs Sex: Male : 1995 Arrival Date: 01/18/2023 Time: 11:24 Bed DX5 Private MD: ED Physician Christofer Gomez HPI: 01/18 11:34 This 28 yrs old Black Male presents to ER via Ambulatory with complaints of Cough - jh7 with blood. 11:34 Patient just seen and discharged in the ER with a diagnosis of an upper respiratory jh7 infection. He stated that he went to the bathroom and coughed up a small amount of blood. No other symptoms at this time.. Historical: - Allergies: 11:37 No Known Allergies; iw - PMHx: 11:37 Asthma; depressive disorder; Hypertensive disorder; Seizures; iw - Immunization history:: Adult Immunizations unknown. - Social history:: Smoking status: . ROS: 11:34 Constitutional: Negative for fever, chills, and weight loss, Eyes: Negative for injury, jh7 pain, redness, and discharge, Neck: Negative for injury, pain, and swelling, Cardiovascular: Negative for chest pain, palpitations, and edema, Back: Negative for injury and pain, MS/Extremity: Negative for injury and deformity, Skin: Negative for injury, rash, and discoloration, Neuro: Negative for headache, weakness, numbness, tingling, and seizure, 11:34 Respiratory: Positive for cough, Negative for shortness of breath, wheezing, 11:34 All other systems are negative, Exam: 11:34 Constitutional: This is a well developed, well nourished patient who is awake, alert, jh7 and in no acute distress. Head/Face: Normocephalic, atraumatic. Cardiovascular: Regular rate and rhythm with a normal S1 and S2. No gallops, murmurs, or rubs. Normal PMI, no JVD. No pulse deficits. Respiratory: Lungs have equal breath sounds bilaterally, clear to auscultation and percussion. No rales, rhonchi or wheezes noted. No increased work of breathing, no retractions or nasal flaring. Abdomen/GI: Soft, non-tender, with normal bowel sounds. No distension or tympany. No guarding or rebound. No evidence of tenderness throughout. Skin: Warm, dry with normal turgor. Normal color with no rashes, no lesions, and no evidence of cellulitis. Neuro: Awake and alert, GCS 15, oriented to person, place, time, and situation. Normal gait. Vital Signs: 11:37 BP 121 / 60; Pulse 130; Resp 19; Temp 98.7; Pulse Ox 100% on R/A; Weight 124.74 kg; iw 12:45 BP 119 / 70; Pulse 120; Resp 16; Pulse Ox 98% on R/A; em1 MDM: 11:[address] [facility] 12:30 Differential Diagnosis: Bronchitis Influenza Upper Respiratory Infection. Data [facility] reviewed: vital signs, nurses notes, radiologic studies, plain films, Chest x-ray taken 1 hour ago during his last check-in.. Independent interpretation of the following test(s) in the Emergency Department EKG: See my EKG interpretation above. Counseling: I had a detailed discussion with the patient and/or guardian regarding the historical points, exam findings, and any diagnostic results supporting the discharge/admit diagnosis, to return to the emergency department if symptoms worsen or persist or if there are any questions or concerns that arise at home. ED course: Patient caught malingering in the hallway multiple times talking to people and using the phone for random phone calls. Verified that he is tachycardic during every ER visit. He remained calm and in no distress throughout the visit. He made random comments such as "can I get a head CT because I think I have seizures in my sleep" and "I am feeling weak and dehydrated can I get IV fluids". Patient repeatedly said that he wanted to stay here or at least get a note so he did not have to go back to the rehab center he is at.. 11 11:38 Order name: KATHERINE [facility] 01/18 11:39 Order name: EKG - Nurse/Tech; Complete Time: 12:13 [facility] 01/18 12:39 Order name: Recheck Vital Signs; Complete Time: 12:52 [facility] EC:07 Rate is 125 beats/min. Rhythm is regular. QRS [place] is Normal. AL interval is normal at [facility] 134 msec. QRS interval is normal at 80 msec. QT interval is normal at 294 msec. No Q waves. T waves are Inverted in leads V5, V6. Clinical impression: Sinus tachycardia. Administered Medications: No medications were administered Disposition Summary: 01/18/23 12:49 Discharge Ordered Notes: Location: Home [facility] Problem: [facility] Symptoms: are resolved [facility] Condition: Stable [facility] Diagnosis - Cough [facility] Followup: [facility] - With: Private Physician - When: 2 - 3 days - Reason: Recheck today's complaints Discharge Instructions: - Discharge Summary Sheet [facility] - Cough, Adult [facility] Forms: - Medication Reconciliation Form [facility] - Thank You Letter [facility] - Patient Portal Instructions [facility] - Leadership Thank You Letter [facility] Addendum: 01/19/2023 13:08 I was immediately available for consultation during this patient's visit. I did not e c2 personally see the patient or guide the patient's care.. Signatures: Dispatcher [employer] China Razo RN RN iw Kaylyn Ac, INDUCTION HEAT TREATER INDUCTION HEAT TREATER [facility] Christofer Gomez MD MD ec2 Corrections: (The following items were deleted from the chart) 01/18 11:38 11:38 Rhythm Strip ordered. [place] [id number]
[2023-01-18 12:56] LABS: Barbiturates NEGATIVE (NEGATIVE); Benzodiazepines NEGATIVE (NEGATIVE); Cocaine NEGATIVE (NEGATIVE); METHAMPHETAM NEGATIVE (NEGATIVE); Methadone NEGATIVE (NEGATIVE); Opiates NEGATIVE (NEGATIVE); Phencyclidine NEGATIVE (NEGATIVE); THC Cannibis POSITIVE (NEGATIVE)
[2023-01-18 13:00] VITALS: TEMP 98.7
[2023-01-18 13:02] VITALS: BP 119/70; O2SAT 98
--- NOTE | 2023-01-23 14:31 | EKG ---
Test Date: 2023-01-18 Test Time: 13:07:21 Slate Roofer: RADHA MEASUREMENT RESULTS: Intervals: Rate: 125 CO: 134 QRSD: 80 QT: 294 QTc: 424 Maiden: P: 35 CO: 134 QRS: 28 T: 76 INTERPRETIVE STATEMENTS: Sinus tachycardia T wave abnormality, consider lateral ischemia Abnormal ECG Compared to ECG 03/01/2018 15:46:59 Sinus rhythm no longer present Sinus arrhythmia no longer present T-wave abnormality still present Possible ischemia still present Electronically Signed On 01-23-23 14:17:14 CHIEF ESTIMATOR by Serafin Rothman
== END 2023-01-18 12:56 | disposition home or self-care (01) ==
LOC: ER 11:24
DX: R05.9 Cough, unspecified (principal); Z11.52 Encounter for screening for COVID-19
CPT/HCPCS: 80307; 93005; 99283

== ENCOUNTER 2023-01-27 10:11 | Emergency (ER) | payer SELFPAY ==
--- OUTSIDE RECORDS SUMMARY | 2023-01-27 10:14 | XMS REPORT | Continuity of Care Document ---
:1995 Author Organization [facility] t Address [address] [place] [address] Care Team Providers Name Role Phone Unavailable Unavailable Unavailable Problems This patient has no known problems. Allergies, Adverse Reactions, Alerts This patient has no known allergies or adverse reactions. Medications This patient has no known medications. Procedures This patient has no known procedures. Encounters Start End Encounter Admission Attending Care Care Encounter Source Date/Time Date/Time Type Type Clinicians Facility Department ID 2023-01-23 2023-01-23 Outpatient SFA SFA [id number] Miguel 14:44:32 14:44:32 [id number] F Cruz 2023-01-21 2023-01-21 Outpatient SFA SFA [id number] Miguel 17:16:35 17:16:35 [id number] F Cruz 2023-01-15 2023-01-15 Outpatient SFA [id number] [id number] Miguel 13:03:04 13:03:04 [id number] F Cruz 2022-09-23 2022-09-23 Outpatient SFA SFA [id number] Miguel 13:47:04 13:47:04 [id number] F Cruz 2022-09-11 2022-09-11 Outpatient SFA SFA [id number] Miguel 11:01:46 11:01:46 [id number] F Cruz 2022-09-09 2022-09-09 Outpatient SFA SFA [id number] Miguel 15:30:36 15:30:36 [id number] Cruz Results This patient has no known results.
[2023-01-27 10:48] LABS: Absolute Lymphocytes (CBC) 2.6 K/uL (0.7-4.9); Hematocrit 45.7 % (39.6-49.0); Lymphocytes % 34.2 % (15.3-44.8); MCV 78.8 fL (80-100); MPV 7.8 fL (7.6-11.3); Platelets 229 thou/uL (152-406); RBC Red Blood Cell Count 5.81 M/uL (4.33-5.43)
[2023-01-27 11:02] LABS: Potassium 3.8 mEq/L (3.5-5.1)
[2023-01-27] MEDS ORDERED: ONDANSETRON 4 MG/2 ML VIAL ONE (11:08)
--- NOTE | 2023-01-27 11:47 | RAD REPORT ---
EXAM DESCRIPTION: RADChest Single View01/27/2023 11:27 am CLINICAL HISTORY: Cough;Congestion;Dyspnea COMPARISON: Chest Single View dated 01/18/2023; Chest Single View dated 09/23/2016; CHEST SINGLE VIEW dated 09/08/2013; CHEST SINGLE VIEW dated 09/05/2013 TECHNIQUE: Portable AP view of the chest. FINDINGS: Developing bilateral fluffy opacities with central interstitial prominence. No pneumothor ax or effusion. The cardiomediastinal contours are unremarkable. IMPRESSION: Findings suggestive of central pneumonia or early pulmonary edema.
--- NOTE | 2023-01-27 11:55 | ER ---
Nurse's Notes [facility] Name: Oswaldo Moore Age: 28 yrs Sex: Male : 1995 Arrival Date: 01/27/2023 Time: 10:11 Bed 8 Private MD: Diagnosis: Pneumonia, unspecified organism Presentation: 01/27 10:23 Chief complaint: Patient states: "I've had cough, SOB, N/V/D for the past couple weeks. mb9 I've had no transportation to get my medicine that I was prescribed here for my upper respiratory infection.". Coronavirus screen: Vaccine status: Patient reports being unvaccinated. Ebola Screen: No symptoms or risks identified at this time. Initial Sepsis Screen: Does the patient meet any 2 criteria? No. Patient's initial sepsis screen is negative. Does the patient have a suspected source of infection? No. Patient's initial sepsis screen is negative. Risk Assessment: Do you want to hurt yourself or someone else? Patient reports no desire to harm self or others. Onset of symptoms was January 27, 2023. 10:23 Method Of Arrival: Ambulatory mb9 10:23 Acuity: SUMAN 3 mb9 Triage Assessment: 10:24 General: Appears in no apparent distress. Behavior is calm, cooperative. Neuro: mb9 Howard Agitation-Sedation Scale (RASS): 0 - Alert and Calm. Respiratory: Reports shortness of breath cough that is. Respiratory: Airway is patent Respiratory effort is even, unlabored, Respiratory pattern is regular, symmetrical. GI: Reports nausea. : No signs and/or symptoms were reported regarding the genitourinary system. Derm: Skin is pink, warm \\T\\ dry. Musculoskeletal: Range of motion: intact in all extremities. 10:24 Respiratory: Onset: The symptoms/episode began/occurred two weeks ago. Respiratory: the rs5 patient has mild shortness of breath. Historical: - Allergies: 10:24 No Known Allergies; mb9 - Home Meds: 10:24 None [Active]; mb9 - PMHx: 10:24 Asthma; depressive disorder; Hypertensive disorder; Seizures; mb9 - PSHx: 10:24 None; mb9 - Immunization history:: Adult Immunizations up to date. - Social history:: Smoking status: Reported history of juuling and/or vaping. Screenin:[address] [facility] ED Fall Risk Assessment (Adult) History of falling in the last 3 months, rs5 including since admission No falls in past 3 months (0 pts) Confusion or Disorientation No (0 pts) Intoxicated or Sedated No (0 pts) Impaired Gait No (0 pts) Mobility Assist Device Used No (0 pt) Altered Elimination No (0 pt) Score/Fall Risk Level 0 - 2 = Low Risk Oriented to surroundings, Maintained a safe environment. Abuse screen: Denies threats or abuse. Nutritional screening: No deficits noted. Tuberculosis screening: No symptoms or risk factors identified. Assessment: 10:25 General: Appears in no apparent distress. comfortable, Behavior is calm, cooperative. rs5 Pain: Denies pain. Neuro: Level of Consciousness is awake, alert, obeys commands, Oriented to person, place, time, situation. Cardiovascular: Heart tones S1 S2 present Rhythm is regular. Respiratory: Reports cough that is productive, since 2 weeks ago Airway is patent Respiratory effort is even, unlabored, Respiratory pattern is regular, symmetrical, Breath sounds are clear bilaterally. Respiratory: Reports pain with cough since 2 weeks ago Pain is 3 out of 10 on a pain scale. GI: Abdomen is round non-distended, Bowel sounds present X 4 quads. Abd is soft and non tender X 4 quads. : No signs and/or symptoms were reported regarding the genitourinary system. EENT: No signs and/or symptoms were reported regarding the EENT system. Derm: Skin is intact, Skin is dry, Skin is normal, Skin temperature is warm. Musculoskeletal: Range of motion: intact in all extremities. Vital Signs: 10:23 Pulse 105; Resp 18; Temp 98.5; Pulse Ox 100% on R/A; Weight 122.47 kg; Height 5 ft. 6 mb9 in. ; 10:23 BP 146 / 96; mb9 10:25 BP 145 / 92; Pulse 88; Resp 17; Pulse Ox 99% on R/A; rs5 11:37 BP 140 / 80; Pulse 78; Resp 16; Pulse Ox 99% on R/A; rs5 10:23 Body Mass Index 43.58 (122.47 kg, 167.64 cm) mb9 ED Course: 10:14 Patient arrived in ED. mg5 10:14 Sulma Madsen FNP-C is PHCP. kb 10:14 Christofer Gomez MD is Attending Physician. kb 10:24 Triage completed. mb9 10:24 Arm band placed on. mb9 10:25 Patient has correct armband on for positive identification. Placed in gown. Bed in low rs5 position. Call light in reach. Side rails up X2. 10:29 Patient placed in an exam room, on a stretcher. iw 10:43 COVID-19 SARS RT PCR Sent. bc6 10:43 Flu Sent. bc6 10:43 Basic Metabolic Panel Sent. bc6 10:43 CBC with Diff Sent. bc6 10:43 Inserted saline lock: 20 gauge in right antecubital area, using aseptic technique. bc6 Blood collected. 10:54 Aron Ceron, RN is Primary Nurse. rs5 11:29 Chest Single View XRAY In Process Unspecified. EDMS 12:13 No provider procedures requiring assistance completed. rs5 12:13 IV discontinued, intact, bleeding controlled, No redness/swelling at site. Pressure rs5 dressing applied. Administered Medications: 10:50 Drug: NS 0.9% IV 1000 ml IV at 1000 ml once Route: IV; Rate: 1000 ml; Site: right rs5 antecubital; 11:05 Follow up: Response: No adverse reaction rs5 10:50 Drug: Ondansetron IVP 4 mg IVP once; over 2 minutes Route: IVP; Site: right antecubital;rs5 11:05 Follow up: Response: No adverse reaction; Nausea is decreased rs5 11:55 Drug: Rocephin IV 1 grams IV at calculated rate once; Given slow IV push per pharmacy rs5 instructions Route: IV; Rate: calculated rate; Site: left antecubital; 12:10 Follow up: Response: No adverse reaction rs5 Medication: 12:13 VIS not applicable for this client. rs5 Outcome: 11:54 Discharge ordered by . kb 12:13 Discharged to home ambulatory, rs5 12:13 Condition: stable 12:13 Discharge instructions given to patient, Instructed on discharge instructions, follow up and referral plans. Demonstrated understanding of instructions, follow-up care, 12:37 Patient left the ED. iw Signatures: Dispatcher [employer] EDMS Sulma Madsen, JEAN LONGP-China Treadwell, RN RN Jackie Dodge RN RN mb9 Aron Ceron RN RN rs5 Rachael George 6 Mirian Bauer mg5 Corrections: (The following items were deleted from the chart) 16:53 16:49 Respiratory: Onset: The symptoms/episode began/occurred rs5 rs5
--- NOTE | 2023-01-27 11:55 | EDPHYS ---
Physician Documentation [facility] Name: Oswaldo Moore Age: 28 yrs Sex: Male : 1995 Arrival Date: 01/27/2023 Time: 10:11 Bed 8 Private MD: ED Physician Christofer Gomez HPI: 01/27 10:16 This 28 yrs old Black Male presents to ER via Unassigned with complaints of Cough, kb Shortness Of Breath. 10:16 Pt is a 28 year old male that presents with cough, congestion for one week, nausea and kb vomiting for 2 days and shortness of breath that started last night. Unable to tolerate anything by mouth. Unknown fever. Historical: - Allergies: 10:24 No Known Allergies; mb9 - Home Meds: 10:24 None [Active]; mb9 - PMHx: 10:24 Asthma; depressive disorder; Hypertensive disorder; Seizures; mb9 - PSHx: 10:24 None; mb9 - Immunization history:: Adult Immunizations up to date. - Social history:: Smoking status: Reported history of juuling and/or vaping. ROS: 10:21 Cardiovascular: Negative for chest pain, palpitations, and edema, kb 10:21 Constitutional: Positive for malaise, 10:21 ENT: Positive for sinus congestion, 10:21 Respiratory: Positive for cough, shortness of breath, 10:21 Abdomen/GI: Positive for nausea and vomiting, Negative for abdominal pain, 10:21 All other systems are negative, Exam: 10:21 Constitutional: This is a well developed, well nourished patient who is awake, alert, kb and in no acute distress. Head/Face: Normocephalic, atraumatic. ENT: Moist Mucous membranes Cardiovascular: Tachycardia Respiratory: Respirations even and unlabored. No increased work of breathing. Talking in full sentences Abdomen/GI: Soft, non-tender. No distention Skin: Warm, dry with normal turgor. Normal color. MS/ Extremity: Pulses equal, no cyanosis. Neurovascular intact. Full, normal range of motion. Neuro: Awake and alert, GCS 15, oriented to person, place, time, and situation. Moves all extremities. Normal gait. Vital Signs: 10:23 Pulse 105; Resp 18; Temp 98.5; Pulse Ox 100% on R/A; Weight 122.47 kg; Height 5 ft. 6 mb9 in. ; 10:23 BP 146 / 96; mb9 10:25 BP 145 / 92; Pulse 88; Resp 17; Pulse Ox 99% on R/A; rs5 11:37 BP 140 / 80; Pulse 78; Resp 16; Pulse Ox 99% on R/A; rs5 10:23 Body Mass Index 43.58 (122.47 kg, 167.64 cm) mb9 MDM: 10:15 Patient medically screened. kb 10:21 Differential Diagnosis: Bronchitis Influenza Upper Respiratory Infection Viral Syndrome kb Pneumonia. Data reviewed: vital signs, nurses notes. 11:53 Counseling: I had a detailed discussion with the patient and/or guardian regarding the kb historical points, exam findings, and any diagnostic results supporting the discharge/admit diagnosis, lab results, radiology results, the need for outpatient follow up, a family practitioner, to return to the emergency department if symptoms worsen or persist or if there are any questions or concerns that arise at home. 01/27 10:20 Order name: CBC with Diff; Complete Time: 10:50 kb 01/27 10:20 Order name: Basic Metabolic Panel; Complete Time: 11:09 kb 01/27 10:20 Order name: Flu; Complete Time: 11:35 kb 01/27 10:20 Order name: COVID-19 SARS RT PCR; Complete Time: 11:25 kb 01/27 10:20 Order name: Chest Single View XRAY; Complete Time: 11:53 kb 01/27 10:20 Order name: IV Start; Complete Time: 10:43 kb Administered Medications: 10:50 Drug: NS 0.9% IV 1000 ml IV at 1000 ml once Route: IV; Rate: 1000 ml; Site: right rs5 antecubital; 11:05 Follow up: Response: No adverse reaction rs5 10:50 Drug: Ondansetron IVP 4 mg IVP once; over 2 minutes Route: IVP; Site: right antecubital;rs5 11:05 Follow up: Response: No adverse reaction; Nausea is decreased rs5 11:55 Drug: Rocephin IV 1 grams IV at calculated rate once; Given slow IV push per pharmacy rs5 instructions Route: IV; Rate: calculated rate; Site: left antecubital; 12:10 Follow up: Response: No adverse reaction rs5 Disposition Summary: 01/27/23 11:54 Discharge Ordered Notes: Location: Home kb Condition: Stable kb Diagnosis - Pneumonia, unspecified organism kb Followup: kb - With: Emergency Department - When: As needed - Reason: Worsening of condition Followup: kb - With: Private Physician - When: 2 - 3 days - Reason: Recheck today's complaints, Continuance of care, Re-evaluation by your physician Discharge Instructions: - Discharge Summary Sheet kb - Community-Acquired Pneumonia, Adult, [id number] kb Forms: - Medication Reconciliation Form kb - Thank You Letter kb - Antibiotic Education kb - Prescription Opioid Use kb - Patient Portal Instructions kb - Leadership Thank You Letter kb Prescriptions: - Zofran 4 mg Oral tablet - take 1 tablet ORAL route every 6 hours As needed; 10 tablet; Refills: 0, kb Product Selection Permitted - Zithromax 500 mg Oral Tablet - take 1 tablet ORAL route once daily for 5 days; 5 tablet; Refills: 0, Product kb Selection Permitted Addendum: 01/29/2023 20:14 I was immediately available for consultation during this patient's visit. I did not e c2 personally see the patient or guide the patient's care.. Signatures: Dispatcher [employer] Sulma Foster, GYMNASTIC COACH-C GYMNASTIC COACH-Jackie Velazquez RN RN mb9 Aron Ceron RN RN rs5 Christofer Gomez MD MD ec2
[2023-01-27] MEDS ORDERED: CEFTRIAXONE 1000 MG/VIAL ONE (12:17)
[2023-01-27 12:41] VITALS: BP 146/96; TEMP 98.5; O2SAT 100
== END 2023-01-27 12:37 | disposition home or self-care (01) ==
LOC: ER 10:11
DX: J18.9 Pneumonia, unspecified organism (principal); Z11.52 Encounter for screening for COVID-19
CPT/HCPCS: 36415; 71045; 80048; 85025; 87635; 87804; 99284; J0696; J2405

== ENCOUNTER 2023-02-23 15:49 | Emergency (ER) | payer SELFPAY ==
--- OUTSIDE RECORDS SUMMARY | 2023-02-23 15:51 | XMS REPORT | Continuity of Care Document ---
Author Name Unknown Address [address] [facility]. Ab[address]. [address] th[address] Address [address] [facility] 1 [address] [place] [address] Care Team Providers Care Forester [employer] Name Role Phone Unavailable Unavailable Unavailable Encounters Start Date/Time End Date/Time Encounter Type Admission Type Attending Clinicians [facility] Care Department Encounter ID Source 2023-02-15 13:45:35 2023-02-15 13:45:35 Outpatient SFA SFA [id number] Miguel Arroyo 2023-01-23 14:44:32 2023-01-23 14:44:32 Outpatient SFA SFA [id number] Miguel Arroyo 2023-01-21 17:16:35 2023-01-21 17:16:35 Outpatient SFA SFA [id number] Miguel Arroyo 2023-01-15 13:03:04 2023-01-15 13:03:04 Outpatient SFA SFA [id number] Miguel Arroyo 2022-09-23 13:47:04 2022-09-23 13:47:04 Outpatient SFA SFA [id number] Miguel Arroyo 2022-09-11 11:01:46 2022-09-11 11:01:46 Outpatient SFA SFA [id number] Miguel Abarca Cruz 2022-09-09 15:30:36 2022-09-09 15:30:36 Outpatient SFA SFA [id number] Miguel Abarca Cruz
[2023-02-23] MEDS ORDERED: NA CHLORIDE 0.9% 1,000 ML ONE (16:14)
[2023-02-23 16:40] LABS: SARS-CoV-2 Antigen Rapid Res Negative (Negative)
[2023-02-23 16:41] LABS: Absolute Lymphocytes (CBC) 2.5 K/uL (0.7-4.9); Hematocrit 44.2 % (39.6-49.0); Lymphocytes % 24.9 % (15.3-44.8); MCV 79.3 fL (80-100); MPV 8.1 fL (7.6-11.3); Platelets 223 thou/uL (152-406); RBC Red Blood Cell Count 5.57 M/uL (4.33-5.43)
[2023-02-23 16:46] LABS: Potassium 3.7 mEq/L (3.5-5.1)
--- NOTE | 2023-02-23 16:49 | RAD REPORT ---
EXAM DESCRIPTION: RADChest Single View02/23/2023 4:43 pm CLINICAL HISTORY: shortness of breath COMPARISON: Chest Single View dated 01/27/2023; Chest Single View dated 01/18/2023; Chest Single View dated 09/23/2016; CHEST SINGLE VIEW dated 09/08/2013 TECHNIQUE: Portable AP view of the chest. FINDINGS: The lungs are clear, although decreased penetration somewhat limits evaluation. No pneumo thorax or effusion. The cardiomediastinal contours are unremarkable. IMPRESSION: No acute cardiopulmonary process.
--- NOTE | 2023-02-23 17:11 | EDPHYS ---
Physician Documentation [facility] Name: Oswaldo Moore Age: 28 yrs Sex: Male : 1995 Arrival Date: 02/23/2023 Time: 15:49 Bed 4 Private MD: ED Physician Jaya Lopez HPI: 02/23 15:52 This 28 yrs old Black Male presents to ER via Unassigned with complaints of Shortness ms3 Of Breath. 15:52 28-year-old male with past medical history of hypertension, asthma, depression, ms3 seizures presents to the emergency department via [facility] from [facility] for shortness of breath. EMS notes patient's heart rate to be in the 120s with elevated blood pressure. Monitor shows sinus tachycardia. Blood glucose level 289, oral temperature 99.8. Patient states he has had shortness of breath and chest pressure 2 days. Patient denies any alleviating or inciting factors. Historical: - Allergies: 15:52 No Known Allergies; ld1 - PMHx: 15:52 Asthma; depressive disorder; Hypertensive disorder; Seizures; ld1 - Immunization history:: Adult Immunizations up to date. - Social history:: Smoking status: Patient denies any tobacco usage or history of. Patient/guardian denies using alcohol. ROS: 15:52 Constitutional: Negative for fever, and chills. Neck: Negative for injury, pain, and ms3 swelling, 15:52 Abdomen/GI: Negative for abdominal pain, nausea, vomiting, diarrhea, and constipation, MS/Extremity: Negative for injury and deformity, Skin: Negative for injury, rash, and discoloration, 15:52 Cardiovascular: Positive for chest pain, 15:52 Respiratory: Positive for shortness of breath, 15:52 All other systems are negative, Exam: 15:52 Constitutional: This is a well developed, well nourished patient who is awake, alert, ms3 and in no acute distress. Head/Face: Normocephalic, atraumatic. Chest/axilla: Normal chest wall appearance and motion. Nontender with no deformity. Respiratory: Lungs have equal breath sounds bilaterally, clear to auscultation and percussion. No rales, rhonchi or wheezes noted. No increased work of breathing, no retractions or nasal flaring. 15:52 Skin: Warm, dry with normal turgor. Normal color with no rashes, no lesions, and no evidence of cellulitis. MS/ Extremity: Pulses equal, no cyanosis. Neurovascular intact. Full, normal range of motion. 15:52 Cardiovascular: Rate: tachycardic, Rhythm: regular, Pulses: no pulse deficits are appreciated, Vital Signs: 15:52 BP 150 / 80; Pulse 120; Resp 20; Temp 99.8(O); Pulse Ox 100% on R/A; ld1 16:33 BP 114 / 71; Pulse 80; Resp 17; Pulse Ox 99% on R/A; rs5 MDM: 15:51 Patient medically screened. ms3 15:52 Differential diagnosis: Myocardial Infarction pneumonia, Flu versus COVID. ms3 17:25 Data reviewed: vital signs, nurses notes, lab test result(s), EKG, radiologic studies, ms3 and as a result, I will discharge patient. Independent interpretation of the following test(s) in the Emergency Department EKG: See my EKG interpretation above. Historians other than the Patient: EMS: [facility]. Care significantly affected by the following chronic conditions: Hypertension. Counseling: I had a detailed discussion with the patient and/or guardian regarding the historical points, exam findings, and any diagnostic results supporting the discharge/admit diagnosis, lab results, radiology results, the need for outpatient follow up, to return to the emergency department if symptoms worsen or persist or if there are any questions or concerns that arise at home. Special discussion: Based on the patient's history, exam, and Dx evaluation, there is no indication for emergent intervention or inpatient Tx. It is understood by the patient/guardian that if the Sx's persist or worsen they need to return immediately for re-evaluation. ED course: Discussed labs, EKG, chest x-ray with patient. Patient to follow-up with Dr. Hodge in 2 to 3 days. Patient understands and agrees with plan. All questions were answered. Return precautions discussed include worsening symptoms, or any other concerns. 1212 15:52 Order name: CBC with Diff; Complete Time: 17:00 ms3 1212 15:52 Order name: BMP; Complete Time: 17:00 ms3 12 15:52 Order name: Flu; Complete Time: 17:00 ms3 12/12 15:52 Order name: SARS RAPID; Complete Time: 17:00 ms3 02/23 15:54 Order name: Troponin HS; Complete Time: 17:00 ms3 02/23 15:52 Order name: Chest Single View XRAY; Complete Time: 17:00 ms3 02/23 15:54 Order name: Cardiac monitoring; Complete Time: 16:22 ms3 02/23 15:54 Order name: EKG - Nurse/Tech; Complete Time: 16:22 ms3 02/23 15:54 Order name: IV Saline Lock; Complete Time: 16:22 ms3 02/23 15:54 Order name: Labs collected and sent; Complete Time: 16:22 ms3 02/23 15:54 Order name: O2 Per Protocol; Complete Time: 16:22 ms3 02/23 15:54 Order name: O2 Sat Monitoring; Complete Time: 16:22 ms3 Administered Medications: 15:58 Drug: NS 0.9% IV 1000 ml IV at 1 bolus Per protocol; 1000 mL bolus Route: IV; Rate: 1 rs5 bolus; Site: left antecubital; 16:34 Follow up: Response: No adverse reaction rs5 Disposition Summary: 02/23/23 17:10 Discharge Ordered Notes: Location: Home ms3 Condition: Stable ms3 Diagnosis - Chest pain, unspecified ms3 - Cough ms3 Followup: ms3 - With: Serafin Rothman MD - When: 2 - 3 days - Reason: Recheck today's complaints Discharge Instructions: - Discharge Summary Sheet ms3 - Nonspecific Chest Pain, Adult ms3 - Cough, Adult ms3 Forms: - Medication Reconciliation Form ms3 - Thank You Letter ms3 - Antibiotic Education ms3 - Prescription Opioid Use ms3 - Patient Portal Instructions ms3 - Leadership Thank You Letter ms3 Signatures: Dispatcher [employer] Jaya Parry DO DO ms3 Zulema Lopez RN RN ld1 Aron Ceron RN RN rs5
--- NOTE | 2023-02-23 17:11 | ER ---
Nurse's Notes [facility] Name: Oswaldo Moore Age: 28 yrs Sex: Male : 1995 Arrival Date: 02/23/2023 Time: 15:49 Bed 4 Private MD: Diagnosis: Chest pain, unspecified;Cough Presentation: 02/23 15:52 Chief complaint: EMS states: toned out to long term for SOB \T\ chest pain. Coronavirus ld1 screen: At this time, the client does not indicate any symptoms associated with coronavirus-19. Ebola Screen: No symptoms or risks identified at this time. Initial Sepsis Screen: Does the patient meet any 2 criteria? No. Patient's initial sepsis screen is negative. Does the patient have a suspected source of infection? No. Patient's initial sepsis screen is negative. Risk Assessment: Do you want to hurt yourself or someone else? Patient reports no desire to harm self or others. Onset of symptoms was February 23, 2023. 15:52 Method Of Arrival: EMS: [facility] ld1 15:52 Acuity: SUMAN 3 ld1 Triage Assessment: 15:52 General: Appears in no apparent distress. comfortable, Behavior is calm, cooperative, ld1 appropriate for age. Pain: Complains of pain in chest Pain does not radiate. Pain currently is 8 out of 10 on a pain scale. Quality of pain is described as sharp, throbbing, Pain began suddenly. EENT: No signs and/or symptoms were reported regarding the EENT system. Neuro: Level of Consciousness is awake, alert, obeys commands, Oriented to person, place, time, situation. Cardiovascular: Capillary refill < 3 seconds Patient's skin is warm and dry. Respiratory: Reports shortness of breath at rest on exertion Airway is patent Respiratory effort is even, unlabored, Onset: The symptoms/episode began/occurred suddenly, the patient has mild shortness of breath. GI: Abdomen is round non-distended. : No signs and/or symptoms were reported regarding the genitourinary system. Derm: No signs and/or symptoms reported regarding the dermatologic system. Musculoskeletal: No signs and/or symptoms reported regarding the musculoskeletal system. Historical: - Allergies: 15:52 No Known Allergies; ld1 - PMHx: 15:52 Asthma; depressive disorder; Hypertensive disorder; Seizures; ld1 - Immunization history:: Adult Immunizations up to date. - Social history:: Smoking status: Patient denies any tobacco usage or history of. Patient/guardian denies using alcohol. Screenin:54 [facility] ED Fall Risk Assessment (Adult) History of falling in the last 3 months, ld1 including since admission No falls in past 3 months (0 pts). Abuse screen: Denies threats or abuse. Denies injuries from another. Nutritional screening: No deficits noted. Tuberculosis screening: No symptoms or risk factors identified. Assessment: 15:54 Reassessment: See triage assessment. Cardiovascular: Capillary refill < 3 seconds ld1 Patient's skin is warm and dry. Rhythm is sinus rhythm. Respiratory: Airway is patent Respiratory effort is even, unlabored, Breath sounds are clear bilaterally. 16:23 General: Appears in no apparent distress. comfortable, Behavior is cooperative. Pain: rs5 Complains of pain in chest Pain does not radiate. Pain currently is 4 out of 10 on a pain scale. Quality of pain is described as aching, Pain began 2 hours ago. Is intermittent, Noted to be no moaning or facial grimacing noted. Neuro: Level of Consciousness is awake, alert, obeys commands, Oriented to person, place, time, situation. Cardiovascular: Heart tones S1 S2 present Patient's skin is warm and dry. Rhythm is sinus rhythm. Respiratory: Reports shortness of breath on exertion Airway is patent Respiratory effort is even, unlabored, Breath sounds are clear bilaterally. GI: Abdomen is round non-distended, Bowel sounds present X 4 quads. Abd is soft and non tender X 4 quads. : No signs and/or symptoms were reported regarding the genitourinary system. EENT: No signs and/or symptoms were reported regarding the EENT system. Derm: Skin is intact, Skin is dry, Skin is normal, Skin temperature is warm. Musculoskeletal: Range of motion: intact in all extremities. 17:15 Reassessment: Patient and/or family updated on plan of care and expected duration. Pain rs5 level reassessed. Patient is alert, oriented x 3, equal unlabored respirations, skin warm/dry/pink. Patient denies pain at this time. Vital Signs: 15:52 BP 150 / 80; Pulse 120; Resp 20; Temp 99.8(O); Pulse Ox 100% on R/A; ld1 16:33 BP 114 / 71; Pulse 80; Resp 17; Pulse Ox 99% on R/A; rs5 ED Course: 15:51 Patient arrived in ED. ms3 15:51 Jaya Lopez DO is Attending Physician. ms3 15:51 Zulema Lopez, RN is Primary Nurse. ld1 15:52 Arm band placed on right wrist. ld1 15:53 Triage completed. ld1 15:54 Patient has correct armband on for positive identification. Placed in gown. Bed in low ld1 position. Call light in reach. Side rails up X2. Pulse ox on. NIBP on. panel monitor on. Door closed. Noise minimized. Warm blanket given. 15:54 No provider procedures requiring assistance completed. ld1 16:00 Inserted saline lock: 20 gauge in left antecubital area, using aseptic technique. rs5 16:45 Chest Single View XRAY In Process Unspecified. EDMS 17:10 Serafin Rothman MD is Referral Physician. ms3 17:14 IV discontinued, intact, bleeding controlled, No redness/swelling at site. Pressure rs5 dressing applied. Administered Medications: 15:58 Drug: NS 0.9% IV 1000 ml IV at 1 bolus Per protocol; 1000 mL bolus Route: IV; Rate: 1 rs5 bolus; Site: left antecubital; 16:34 Follow up: Response: No adverse reaction rs5 Medication: 15:54 VIS not applicable for this client. ld1 Outcome: 17:10 Discharge ordered by . ms3 17:14 Discharged to Law Enforcement rs5 17:14 Condition: stable 17:14 Discharge instructions given to patient, police, Instructed on discharge instructions, Demonstrated understanding of instructions, 17:15 Patient left the ED. rs5 Signatures: Dispatcher [employer] EDMS Jaya Lopez DO DO ms3 Zulema Lopez, RN RN ld1 Aron Ceron RN RN rs5
[2023-02-23 18:07] VITALS: TEMP 99.8
[2023-02-23 18:15] VITALS: BP 114/71; O2SAT 99
== END 2023-02-23 17:15 | disposition home or self-care (01) ==
LOC: ER 15:49
DX: R07.89 Other chest pain (principal); R05.9 Cough, unspecified; Z11.52 Encounter for screening for COVID-19
CPT/HCPCS: 36415; 71045; 80048; 84484; 85025; 87804; 87811; 99285; J7030

== ENCOUNTER 2023-05-29 14:36 | Observation (INO) | payer SELFPAY ==
--- OUTSIDE RECORDS SUMMARY | 2023-05-29 14:39 | XMS REPORT | Continuity of Care Document ---
Author Name Unknown Address [address] [facility] [address]. 1 [address] [place] [address] [facility] thconnect Address [address] [facility]. [address]. 1 [address] [place] [address] Care Team Providers Care Career Based Intervention Coordinator Name Role Phone Unavailable Unavailable Unavailable Encounters Start Date/Time End Date/Time Encounter Type Admission Type Attending [facility] Facility Care Department Encounter ID Source 2023-02-15 13:45:35 2023-02-15 13:45:35 Outpatient SFA SFA [id number] Miguel Arroyo 2023-01-23 14:44:32 2023-01-23 14:44:32 Outpatient SFA SFA [id number] Miguel Arroyo 2023-01-21 17:16:35 2023-01-21 17:16:35 Outpatient SFA SFA [id number] Miguel Arroyo 2023-01-15 13:03:04 2023-01-15 13:03:04 Outpatient SFA SFA [id number] Miguel Arroyo 2022-09-23 13:47:04 2022-09-23 13:47:04 Outpatient SFA SFA [id number] Miguel Arroyo 2022-09-11 11:01:46 2022-09-11 11:01:46 Outpatient SFA SFA [id number] Miguel Arroyo 2022-09-09 15:30:36 2022-09-09 15:30:36 Outpatient SFA SFA [id number] Miguel Arroyo
[2023-05-29] MEDS ORDERED: NA CHLORIDE 0.9% 1,000 ML ONE ×3 (15:07→21:08)
[2023-05-29 15:38] LABS: Absolute Basophils 0.1 K/uL (0-0.5); Absolute Eosinophils 0.1 K/uL (0-0.5); Absolute Monocytes 0.8 K/uL (0.1-1.3); Absolute Neutrophil 5.1 K/uL (1.8-8.0); Basophils % 1.3 % (0-1.3); Eosinophils % 0.8 % (0-4.4); Lymphocytes % 32.6 % (15.3-44.8); MCV 77.4 fL (80-100); MPV 9.3 fL (7.6-11.3); Monocytes % 8.9 % (3.3-12.3); Neutrophils % 56.4 % (41.7-73.7); Nucleated Red Blood Cells % 0.1 % (0-0); Platelets 190 thou/uL (152-406); Red Cell Distribution Width 13.7 % (12.1-15.2)
[2023-05-29 15:43] LABS: Specific Gravity > 1.030 (1.005-1.030); Urine Bilirubin NEGATIVE (Negative); Urine Blood Negative (Negative); Urine Clarity Clear (Clear); Urine Color Colorless (Yellow); Urine Glucose 4+ (Over) (Negative); Urine Ketones 1+ (Negative); Urine Microscopic Reflex YN NO UMIC; Urine Nitrite NEGATIVE (Negative); Urine Protein NEGATIVE (Negative); Urine Urobilinogen Normal (Normal)
--- NOTE | 2023-05-29 15:50 | RAD REPORT ---
EXAM DESCRIPTION: CTAbdomen Pelvis W Contrast - 05/29/2023 3:39 pm CLINICAL HISTORY: Abdominal pain. scrotal abscess? COMPARISON: No comparisons TECHNIQUE: Biphasic CT imaging of the abdomen and pelvis was performed with 100 ml non-ionic IV cont rast. All CT scans are performed using dose optimization technique as appropriate and may include automated exposure control or mA/KV adjustment according to patient size. FINDINGS: The lung bases are clear. The liver, spleen, pancreas, adrenal glands and kidneys are within normal limits. No bowel obstruction, free air, free fluid or abscess. Mild fluid and edema along the right perineal region. Early abscess is possible in the region. The appendix is normal. Mild sigmoid diverticulosis coli without diverticulitis. No evidence of significant lymphadenopathy. No suspicious bony findings. IMPRESSION: Mild inflammation and fluid is seen along the right perineal soft tissue, early abscess is possible in this region. Elsewhere no acute process seen.
[2023-05-29 16:16] LABS: Albumin 3.3 g/dL (3.4-5.0); Albumin/Globulin Ratio 0.8 (1.1-1.8); Anion Gap 14.6 mEq/L (5.0-15.0); Bilirubin Total 0.5 mg/dL (0.2-1.0); Globulin 4.1 g/dL (2.3-3.5); Potassium 3.6 mEq/L (3.5-5.1); Protein, Total 7.4 g/dL (6.4-8.2)
--- NOTE | 2023-05-29 16:29 | ER ---
Nurse's Notes [facility] Name: Oswaldo Moore Age: 28 yrs Sex: Male : 1995 Arrival Date: 05/29/2023 Time: 14:36 Bed 16 Private MD: Diagnosis: Cellulitis of perineum;Type 2 diabetes mellitus with hyperglycemia;Severe sepsis without septic shock Presentation: 05/28 14:49 Chief complaint: Patient states: pain to perineal area that began 2 days ago. Pt aa5 reports urinary frequency. 14:49 Coronavirus screen: At this time, the client does not indicate any symptoms associated aa5 with coronavirus-19. Ebola Screen: Patient denies travel to an Ebola-affected area in the 21 days before illness onset. Initial Sepsis Screen: Does the patient meet any 2 criteria? No. Patient's initial sepsis screen is negative. Does the patient have a suspected source of infection? No. Patient's initial sepsis screen is negative. Risk Assessment: Do you want to hurt yourself or someone else? Patient reports no desire to harm self or others. Onset of symptoms was May 2023. 14:49 Acuity: SUMAN 3 aa5 14:49 Method Of Arrival: Ambulatory aa5 Historical: - Allergies: 14:54 No Known Allergies; aa5 - PMHx: 14:49 Asthma; depressive disorder; Hypertensive disorder; Seizures; aa5 - PSHx: 14:54 None; aa5 - Immunization history:: Adult Immunizations unknown. - Social history:: Smoking status: Reported history of juuling and/or vaping. Screenin:10 [facility] ED Fall Risk Assessment (Adult) History of falling in the last 3 months, me1 including since admission No falls in past 3 months (0 pts) Confusion or Disorientation No (0 pts) Intoxicated or Sedated No (0 pts) Impaired Gait No (0 pts) Mobility Assist Device Used No (0 pt) Altered Elimination No (0 pt) Score/Fall Risk Level 0 - 2 = Low Risk Maintained a safe environment, Provided non-skid footwear, Hourly rounding (assess needs \T\ fall precautionary measures) done. Abuse screen: Denies threats or abuse. Nutritional screening: No deficits noted. Tuberculosis screening: No symptoms or risk factors identified. Assessment: 15:10 General: Appears uncomfortable, obese, well groomed, well developed, well nourished, me1 Behavior is calm, cooperative, appropriate for age, Reports pain to perianal area with urinary frequency that started 2 days ago. Pain: Complains of pain in perineum Pain does not radiate. Pain at worst was 10 out of 10 on a pain scale. Quality of pain is described as sharp, Pain began 2-3 days ago. Is intermittent, Aggravated by sitting or standing up. Neuro: Level of Consciousness is awake, alert, obeys commands, Oriented to person, place, time, situation, Appropriate for age. Cardiovascular: Capillary refill < 3 seconds Patient's skin is warm and dry. Respiratory: Airway is patent Trachea midline Respiratory effort is even, unlabored, Respiratory pattern is regular, symmetrical. : Reports pain perineum urinary frequency, since 2-3 days ago. Derm: Skin is intact, is healthy with good turgor, Skin is dry, Skin is pink, warm \T\ dry. Vital Signs: 14:53 BP 126 / 79; Pulse 120; Resp 19 S; Temp 98(TE); Pulse Ox 97% on R/A; Weight 112.04 kg aa5 (M); Height 5 ft. 6 in. (R); 15:20 BP 115 / 73; Pulse 113; Resp 20; Pulse Ox 100% on R/A; me1 16:11 BP 126 / 88; Pulse 94; Resp 18; Pulse Ox 100% on R/A; me1 16:30 BP 131 / 90; Pulse 98; Resp 16; Pulse Ox 99% on R/A; me1 17:30 BP 102 / 74; Pulse 105; Resp 16; Pulse Ox 100% on R/A; me1 18:30 BP 119 / 81; Pulse 106; Resp 17; Pulse Ox 100% on R/A; me1 19:30 BP 114 / 72; Pulse 101; Resp 18; Pulse Ox 99% on R/A; me1 14:53 Body Mass Index 39.87 (112.04 kg, 167.64 cm) aa5 ED Course: 14:39 Patient arrived in ED. im 14:41 Elizabeth Joe PA-C is PHCP. sb4 14:41 Rashaun Breen MD is Attending Physician. sb4 14:49 Arm band placed on. aa5 14:53 Triage completed. aa5 15:05 Eddleman, Hawa, RN is Primary Nurse. me1 15:10 Patient has correct armband on for positive identification. Bed in low position. Call me1 light in reach. Side rails up X 1. Provided Education on: POC. Verbalized understanding. . 15:10 No provider procedures requiring assistance completed. me1 15:20 Initial lab(s) drawn, by az, sent to lab. First set of blood cultures drawn Urine me1 collected: clean catch specimen, clear. 15:27 Inserted saline lock: 20 gauge in left antecubital area, using aseptic technique. me1 15:31 CBC with Diff Sent. me1 15:31 CMP Sent. me1 15:31 Lactate w/ 2H reflex if indic. Sent. me1 15:31 Protime (+inr) Sent. me1 15:31 Ptt, Activated Sent. me1 15:31 Urinalysis w/ reflexes Sent. me1 15:31 Blood Culture Adult (2) Sent. me1 15:31 Patient maintains SpO2 saturation greater than 95% on room air. hb 15:32 Second set of blood cultures drawn. me1 15:[address] via stretcher. hb 15:41 CT Abd/Pelvis - IV Contrast Only In Process Unspecified. EDMS 16:28 Erika Jones MD is Hospitalizing Provider. sb4 22:24 Patient admitted, IV remains in place. me1 Administered Medications: 15:31 Drug: NS 0.9% IV 1000 ml IV at 1 bolus Per protocol; 1000 mL bolus Route: IV; Rate: 1 me1 bolus; Site: left antecubital; 16:35 Follow up: Response: No adverse reaction; IV Status: Completed infusion; IV Intake: me1 1000ml 16:47 Drug: NS 0.9% IV 1000 ml IV at 1 bolus Per protocol; 1000 mL bolus Route: IV; Rate: 1 me1 bolus; Site: left antecubital; 18:47 Follow up: Response: No adverse reaction; IV Status: Completed infusion me1 16:47 Drug: Piperacillin-Tazobactam IVPB 3.375 grams IVPB once over 60 mins; (mix in NS 100 me1 mL) Route: IVPB; Infused Over: 60 mins; Site: left antecubital; 17:47 Follow up: Response: No adverse reaction; IV Status: Completed infusion; IV Intake: me1 1000ml 16:47 Drug: Insulin Regular Human IVP 10 units IVP once {Co-Signature: rs5 (Aron Ceron1 RN).} Route: IVP; Site: left antecubital; 17:25 Follow up: Response: No adverse reaction me1 Medication: 15:10 VIS not applicable for this client. me1 Point of Care Testing: Blood Glucose: 19:04 Blood Glucose: 262 mg/dL; me1 Ranges: Intake: 16:35 IV: 1000ml; Total: 1000ml. me1 17:47 IV: 1000ml; Total: 2000ml. me1 Outcome: 16:28 Decision to Hospitalize by Provider. sb4 21:42 Admitted to Tele accompanied by tech, via stretcher, room 415, with chart, Report me1 called to faxed to 4th floor at 21:42. Fax receipt confirmed with Katie at 21:52, 21:42 Condition: stable 21:42 Instructed on the need for admit, 22:33 Patient left the ED. az1 Signatures: Dispatcher [employer] Cynthia Jorge, RN RN aa5 Estela Mora RN RN hb Elizabeth Joe, PA-C PA-C sb4 Gilma Monge Michelle RN RN me1 Aron Ceron RN rs5 Corrections: (The following items were deleted from the chart) 14:57 14:53 BP 126 / 79; Pulse 120bpm; Resp 19bpm; Spontaneous; Pulse Ox 97% RA; Temp 98F aa5 Temporal; Height 5 ft. 6 in. Reported; aa5 17:22 15:39 Patient moved to ME hb hb
--- NOTE | 2023-05-29 16:29 | EDPHYS ---
Physician Documentation [facility] Name: Oswaldo Moore Age: 28 yrs Sex: Male : 1995 Arrival Date: 05/29/2023 Time: 14:36 Bed 16 Private MD: ED Physician Rashaun Breen HPI: 05/28 15:05 This 28 yrs old Black Male presents to ER via Ambulatory with complaints of Scrotal sb4 pain/swelling. 15:12 The patient presents with swelling, of the perineum, tenderness, urinary symptoms, sb4 urinary frequency. Onset: The symptoms/episode began/occurred 2 day(s) ago. The patient has not experienced similar symptoms in the past. The patient has not recently seen a physician. Historical: - Allergies: 14:54 No Known Allergies; aa5 - PMHx: 14:49 Asthma; depressive disorder; Hypertensive disorder; Seizures; aa5 - PSHx: 14:54 None; aa5 - Immunization history:: Adult Immunizations unknown. - Social history:: Smoking status: Reported history of juuling and/or vaping. ROS: 15:12 Constitutional: Negative for fever, chills, and weight loss, sb4 15:12 : Positive for testicular pain 15:12 All other systems are negative, Exam: 15:12 Constitutional: This is a well developed, well nourished patient who is awake, alert, sb4 and in no acute distress. Head/Face: Normocephalic, atraumatic. Eyes: Extra-ocular motions intact. Periorbital areas with no swelling, redness, or edema. ENT: Mucous membranes moist. Cardiovascular: Regular rate and rhythm with a normal S1 and S2. Respiratory: Lungs have equal breath sounds bilaterally, clear to auscultation and percussion. No rales, rhonchi or wheezes noted. No increased work of breathing, no retractions or nasal flaring. Abdomen/GI: Soft, non-tender, no distension. Skin: Warm, dry with normal turgor. Normal color with no rashes, no lesions, and no evidence of cellulitis. MS/ Extremity: Pulses equal, no cyanosis. Neurovascular intact. Full, normal range of motion. Neuro: Awake and alert, GCS 15, oriented to person, place, time, and situation. Motor strength 5/5 in all extremities. Sensory grossly intact. 15:12 : Exam negative for discharge, blood at meatus, Male external genitalia: swelling: tenderness, of the perineum is noted, that is mild, Vital Signs: 14:53 BP 126 / 79; Pulse 120; Resp 19 S; Temp 98(TE); Pulse Ox 97% on R/A; Weight 112.04 kg aa5 (M); Height 5 ft. 6 in. (R); 15:20 BP 115 / 73; Pulse 113; Resp 20; Pulse Ox 100% on R/A; me1 16:11 BP 126 / 88; Pulse 94; Resp 18; Pulse Ox 100% on R/A; me1 16:30 BP 131 / 90; Pulse 98; Resp 16; Pulse Ox 99% on R/A; me1 17:30 BP 102 / 74; Pulse 105; Resp 16; Pulse Ox 100% on R/A; me1 18:30 BP 119 / 81; Pulse 106; Resp 17; Pulse Ox 100% on R/A; me1 19:30 BP 114 / 72; Pulse 101; Resp 18; Pulse Ox 99% on R/A; me1 14:53 Body Mass Index 39.87 (112.04 kg, 167.64 cm) aa5 MDM: 14:50 Patient medically screened. sb4 16:28 Data reviewed: vital signs, nurses notes, lab test result(s), radiologic studies, and sb4 as a result, I will admit patient. Consideration of Admission/Observation Patient was admitted/placed on observation. Counseling: I had a detailed discussion with the patient and/or guardian regarding the historical points, exam findings, and any diagnostic results supporting the discharge/admit diagnosis, lab results, radiology results, the need for further work-up and treatment in the hospital. 05/28 15:04 Order name: Blood Culture Adult (2) sb4 05/28 15:04 Order name: CBC with Diff; Complete Time: 16:46 sb4 05/28 15:04 Order name: CMP; Complete Time: 16:17 sb4 05/28 15:04 Order name: Lactate w/ 2H reflex if indic.; Complete Time: 16:01 sb4 05/28 15:04 Order name: Protime (+inr) sb4 05/28 15:04 Order name: Ptt, Activated sb4 05/28 15:04 Order name: Urinalysis w/ reflexes; Complete Time: 15:44 sb4 05/28 17:21 Order name: Triglycerides Level; Complete Time: 09:22 EDMS 05/28 17:21 Order name: Lipid Profile EDMS 05/28 17:21 Order name: Lipid Profile; Complete Time: 09:22 EDMS 05/28 17:26 Order name: CBC with Automated Diff EDMS 05/28 17:26 Order name: CBC with Automated Diff; Complete Time: 09:22 EDMS 05/28 17:26 Order name: Comprehensive Metabolic Panel EDMS 05/28 17:26 Order name: Comprehensive Metabolic Panel; Complete Time: 09:22 EDMS 05/28 19:16 Order name: Glucose, Ancillary Testing; Complete Time: 09:22 EDMS 05/28 19:19 Order name: Lactate Sepsis 2 HR Follow-up; Complete Time: 09:22 EDMS 05/28 21:10 Order name: Glucose, Ancillary Testing; Complete Time: 09:22 EDMS 05/28 15:04 Order name: CT Abd/Pelvis - IV Contrast Only; Complete Time: 15:51 4 05/28 15:04 Order name: Accucheck; Complete Time: 16:05 sb4 05/28 15:04 Order name: Cardiac monitoring; Complete Time: 16:06 4 05/28 15:04 Order name: IV Saline Lock - Large Bore; Complete Time: 16:05 4 05/28 15:04 Order name: Labs collected and sent; Complete Time: 15:31 4 05/28 15:04 Order name: O2 Per Protocol; Complete Time: 15:31 [facility] 05/28 15:04 Order name: O2 Sat Monitoring; Complete Time: 15:31 sb4 05/28 15:04 Order name: Vital Signs; Complete Time: 15:31 4 05/28 19:36 Order name: Labs - recollect needed: blue top; Complete Time: 19:49 ty Administered Medications: 15:31 Drug: NS 0.9% IV 1000 ml IV at 1 bolus Per protocol; 1000 mL bolus Route: IV; Rate: 1 me1 bolus; Site: left antecubital; 16:35 Follow up: Response: No adverse reaction; IV Status: Completed infusion; IV Intake: me1 1000ml 16:47 Drug: NS 0.9% IV 1000 ml IV at 1 bolus Per protocol; 1000 mL bolus Route: IV; Rate: 1 me1 bolus; Site: left antecubital; 18:47 Follow up: Response: No adverse reaction; IV Status: Completed infusion me1 16:47 Drug: Piperacillin-Tazobactam IVPB 3.375 grams IVPB once over 60 mins; (mix in NS 100 me1 mL) Route: IVPB; Infused Over: 60 mins; Site: left antecubital; 17:47 Follow up: Response: No adverse reaction; IV Status: Completed infusion; IV Intake: me1 1000ml 16:47 Drug: Insulin Regular Human IVP 10 units IVP once {Co-Signature: rs5 (Aron Ceron1 RN).} Route: IVP; Site: left antecubital; 17:25 Follow up: Response: No adverse reaction me1 Point of Care Testing: Blood Glucose: 19:04 Blood Glucose: 262 mg/dL; me1 Ranges: Critical Glucose Levels:Adult <50 mg/dl or >400 mg/dl <40 mg/dl or >180 mg/dl Disposition: 05/29 08:17 Co-signature as Attending Physician, Rashaun Breen MD I agree with the assessment and cp3 plan of care. Disposition Summary: 05/29/23 16:28 Hospitalization Ordered Notes: Hospitalization Status: Inpatient Admission sb4 Provider: Erika Jones Location: Telemetry/[facility] (Inpatient) sb4 Condition: Fair sb4 Problem: new sb4 Symptoms: are unchanged sb4 Bed/Room Type: Standard sb4 Room Assignment: 415(05/29/23 21:03) Diagnosis - Cellulitis of perineum sb4 - Type 2 diabetes mellitus with hyperglycemia sb4 - Severe sepsis without septic shock sb4 Forms: - Medication Reconciliation Form sb4 - SBAR form sb4 - Leadership Thank You Letter sb4 Signatures: Dispatcher [employer] Rashaun Pérez MD MD cp3 Cynthia Craig RN RN aa5 Kirill Garcia, LOSS CONTROL ENGINEER-C LOSS CONTROL ENGINEER-Jordin1 Sabine Graff RN RN Elizabeth Joe, PA-C PA-C sb4 Hawa Chew RN RN me1 Zion Rose ty Aron Ceron RN rs5 Corrections: (The following items were deleted from the chart) 05/28 21:03 16:28 sb4 cg
[2023-05-29] MEDS ORDERED: INSULIN REGULAR (HUMAN) 100 UNIT/ML ONE ×2 (16:38→21:08)
[2023-05-29 16:39] LABS: Hematocrit 34.4 % (39.6-49.0); Hemoglobin 12.1 g/dL (13.6-17.9)
[2023-05-29] MEDS ORDERED: PIPERACIL/TAZO 3.375 GM VIAL IV ONE (16:39)
[2023-05-29] MEDS ORDERED: NA CHLORIDE 0.9% 100 ML ONE (16:39)
[2023-05-29 16:40] LABS: MCH 26.9 pg (27.0-35.0); MCHC 35.6 g/dL (32.0-36.0); RBC Red Blood Cell Count 4.49 M/uL (4.33-5.43)
[2023-05-29] MEDS ORDERED: ONDANSETRON 4 MG/2 ML VIAL IV PRN (17:19)
[2023-05-29] MEDS ORDERED: ACETAMINOPHEN 500 MG TAB PO PRN (17:19)
--- NOTE | 2023-05-29 17:27 | P.HP ---
Certification for Inpatient Patient admitted to: Inpatient With expected LOS: >2 Midnights Patient will require the following post-hospital care: None Practitioner: I am a practitioner with admitting privileges, knowledge of patient current condition, hospital course, and medical plan of care. Services: Services provided to patient in accordance with Admission requirements found in Title 42 Section 412.3 of the Code of Federal Regulations Patient History Date of Service: 05/29/23 Reason for admission: Perineal cellulitis History of Present Illness: Patient is a 28-year-old gentleman who comes into the hospital with the perineal infection. He has had some pain around the scrotal and perineal region on the right side. States he has been drinking a lot and having a lot of urine and he felt like that was causing some his issues. He also has had extensive marijuana use. In the emergency room he was found to have significant hyperglycemia and hypertriglyceridemia. Patient was admitted to the hospital for further evaluation. - Past Medical/Surgical History -: DM-1 -: Seizure Past Surgical History: Patient denies surgical history - Family History Father Family History: Reviewed- Non-Contributory - Social History Smoking Status: Former smoker Alcohol use: Yes CD- Drugs: Yes Allergies No Known Allergies Allergy (Unverified 07/27/15 16:44) Home Medications: levETIRAcetam [Keppra*] 500 mg PO BID #60 tab 09/23/16 Review of Systems 10-point ROS is otherwise unremarkable Physical Examination - Vital Signs Temperature: 98 F (Vitals Reviewed) - Physical Exam General: Alert, In no apparent distress, Oriented x3 HEENT: Atraumatic, PERRLA, Mucous membr. moist/pink, EOMI, Sclerae nonicteric Neck: Supple, 2+ carotid pulse no bruit, No LAD, Without JVD or thyroid abnormality Respiratory: Clear to auscultation bilaterally, Normal air movement Cardiovascular: Regular rate/rhythm, Normal S1 S2, No murmurs Gastrointestinal: Normal bowel sounds, Soft and benign, Non-distended, No tenderness Musculoskeletal: No clubbing, No swelling, No tenderness Integumentary: No rashes Neurological: Normal gait, Normal speech, Normal strength at 5/5 x4 extr, Normal tone, Sensation intact, Cranial nerves 3-12 intact, Normal affect Lymphatics: No axilla or inguinal lymphadenopathy External genitalia: Edema, Lesions, Tenderness - Studies Laboratory Data (last 24 hrs) 05/29/23 05/29/23 15:20 15:20 WBC 9.10 Hgb 12.1 L Hct 34.4 L Plt Count 190 Sodium 131 L Potassium 3.6 BUN 12 Creatinine 1.07 Glucose 750 H* Total Bilirubin 0.5 AST 11 L ALT 36 Alkaline Phosphatase 108 Assessment & Plan - Problems (Diagnosis) (1) Cellulitis, perineum Current Visit: Yes Status: Acute (2) Seizure Current Visit: No Status: Acute (3) Marijuana use Current Visit: Yes Status: Acute (4) Hypertriglyceridemia Current Visit: Yes Status: Acute (5) Type 2 diabetes mellitus Current Visit: Yes Status: Acute - Plan 1. Continue with IV antibiotic 2. Continue with local wound care 3. Wound care consultation/surgical consultation 4. Gentle IV hydration 5. Monitor CBC 6. Strict blood sugar monitoring-Insulin 70/30 at DC, metformin, glyburide 7. Pain control 8. Lopid and Fish oil capsules 9. GI and DVT prophylaxis Discharge Plan: Home Plan to discharge in: Greater than 2 days - Advance Directives Does patient have a Living Will: No Does patient have a Durable POA for Healthcare: No - Code Status/Comfort Care Code Status Assessed: Yes Code Status: Full Code Critical Care: Yes Time Spent Managing PTS Care (In Minutes): 55
[2023-05-29] MEDS: NA CHLORIDE 0.9% 1,000 ML IV SCH (18:00)
[2023-05-29] MEDS: VANCOMYCIN 2 GM in NA CHLORIDE 0.9% 500 ML IVPB SCH (19:00)
[2023-05-29] MEDS: INSULIN GLARGINE 100 UNIT/ML SQ SCH (21:00)
[2023-05-29] MEDS ORDERED: VANCOMYCIN 1.5 GM in NA CHLORIDE 0.9% 500 ML IVPB SCH (21:00)
[2023-05-29] MEDS: INSULIN REGULAR (HUMAN) 100 UNIT/ML SQ SCH (21:00)
[2023-05-29] MEDS: levETIRAcetam 500 MG TAB PO SCH (21:00)
[2023-05-29] MEDS ORDERED: VANCOMYCIN 1 GM/VIAL ONE (21:06)
[2023-05-29] MEDS ORDERED: levETIRAcetam 500 MG TAB ONE (21:06)
[2023-05-29] MEDS ORDERED: INSULIN GLARGINE 100 UNIT/ML SQ ONE (21:07)
[2023-05-29] MEDS ORDERED: NA CHLORIDE 0.9% 250 ML ONE (21:08)
[2023-05-29] MEDS: DOCOSAHEXANOIC AC/EPA 1000 MG PO SCH (23:09)
[2023-05-29] MEDS: gemfibroziL 600 MG TAB PO SCH (23:09)
[2023-05-30] MEDS: PIPER TAZO 3.375 GM in NA CHLORIDE 0.9% 100 ML IV SCH (00:37)
[2023-05-30] MEDS: MORPHINE 2 MG/ML SYR IV PRN (00:37)
[2023-05-30 04:40] LABS: Absolute Basophils 0.1 K/uL (0-0.5); Absolute Eosinophils 0.1 K/uL (0-0.5); Absolute Lymphocytes (CBC) 2.7 K/uL (0.7-4.9); Absolute Monocytes 0.9 K/uL (0.1-1.3); Absolute Neutrophil 4.2 K/uL (1.8-8.0); Basophils % 0.8 % (0-1.3); Eosinophils % 1.1 % (0-4.4); Hematocrit 35.3 % (39.6-49.0); Hemoglobin 13.6 g/dL (13.6-17.9); MCHC 38.5 g/dL (32.0-36.0); MPV 9.5 fL (7.6-11.3); Monocytes % 11.3 % (3.3-12.3); Neutrophils % 52.8 % (41.7-73.7); Nucleated Red Blood Cells % 0.1 % (0-0); Platelets 148 thou/uL (152-406); RBC Red Blood Cell Count 4.53 M/uL (4.33-5.43); Red Cell Distribution Width 13.7 % (12.1-15.2)
[2023-05-30 06:32] LABS: Blood Morphology Comment NOTED (NOT SEEN); Differential Total Cells Count 100; Eosinophils 2 % (0-3); Lymphocytes 32 % (15-42); Monocytes 12 % (0-10); Platelet Estimate ADEQ; Segmented Neutrophils 53 % (40-80); Target Cells 1+
[2023-05-30 06:33] LABS: Smudge Cells PRESENT
[2023-05-30 06:55] LABS: ALT/SGPT 27 U/L (16-61); Albumin 2.6 g/dL (3.4-5.0); Albumin/Globulin Ratio 0.7 (1.1-1.8); Alkaline Phosphatase 76 U/L (45-117); Anion Gap 15.4 mEq/L (5.0-15.0); BUN Blood Urea Nitrogen 7 mg/dL (7-18); Bicarbonate 20 mEq/L (21-32); Bilirubin Total 0.4 mg/dL (0.2-1.0); Globulin 3.5 g/dL (2.3-3.5); Glomerular Filtration Rate 123 ml/min (=/>90); HDL Cholesterol 27 mg/dL (40-60); Lipase 68 U/L (13-75); Protein, Total 6.1 g/dL (6.4-8.2); Sodium Level 135 mEq/L (136-145)
[2023-05-30 06:58] LABS: AST/SGOT 16 U/L (15-37); Potassium 3.4 mEq/L (3.5-5.1)
[2023-05-30 06:59] LABS: Glucose Level 425 mg/dL (74-106)
[2023-05-30 07:12] LABS: LDL, Direct 140 mg/dL (100-129)
[2023-05-30] MEDS ORDERED: D50W 25 GM/50 ML SYRINGE IV PRN (08:02)
[2023-05-30] MEDS ORDERED: GLUCAGON 1 MG/VIAL IM PRN (08:02)
[2023-05-30 09:14] LABS: Albumin 2.8 g/dL (3.4-5.0); Albumin/Globulin Ratio 0.8 (1.1-1.8); Anion Gap 13.8 mEq/L (5.0-15.0); Bilirubin Total 0.3 mg/dL (0.2-1.0); Globulin 3.6 g/dL (2.3-3.5); Potassium 3.8 mEq/L (3.5-5.1); Protein, Total 6.4 g/dL (6.4-8.2)
[2023-05-30] MEDS ORDERED: HYDROCODONE/APAP 10/325 TAB ONE ×2 (11:08→19:46)
[2023-05-30] MEDS: D5.45NS W/KCL 20MEQ 20 MEQ/1,000 ML BAG IV SCH (11:14)
[2023-05-30] MEDS: INSULIN -REGULAR HUMAN 100 UNIT in NA CHLORIDE 0.9% 100 ML IV SCH (11:14)
[2023-05-30] MEDS: HYDROCODONE/APAP 10/325 TAB PO PRN (11:18)
[2023-05-30] MEDS: NA CHLORIDE 0.9% 1,000 ML IV ONE (14:57)
[2023-05-30 15:44] LABS: Anion Gap 13.5 mEq/L (5.0-15.0); Potassium 3.5 mEq/L (3.5-5.1)
[2023-05-30] MEDS: NA CHLORIDE 0.9% 1,000 ML IV SCH (17:45)
[2023-05-30 18:36] VITALS: BMI 40.6
--- NOTE | 2023-05-30 19:03 | P.PN ---
Subjective Date of Service: 05/30/23 Chief Complaint: Perineal cellulitis, NIDDM Eating ice chips, states he is hungry. No complaints <Sol Hayes - Last Filed: 05/30/23 19:24> Date of Service: 05/30/23 <Erika Jones - Last Filed: 05/31/23 08:10> Review of Systems 10-point ROS is otherwise unremarkable General: Fever, Malaise Genitourinary: As per HPI Integumentary: As per HPI <Amy Hayesisamar Waer - Last Filed: 05/30/23 19:24> Physical Examination - Vital Signs Temperature: 97.6 F Blood Pressure: 100/66 Pulse: 102 Respirations: 16 Pulse Ox (%): 100 - Physical Exam General: Alert, In no apparent distress, Oriented x3, Obese HEENT: Atraumatic, Normocephalic Neck: 2+ carotid pulse no bruit Respiratory: Clear to auscultation bilaterally, Normal air movement Cardiovascular: Normal pulses, Regular rate/rhythm Capillary refill: <2 Seconds Gastrointestinal: Soft and benign Musculoskeletal: No clubbing, No swelling Integumentary: Other (wound to right perineal/anal area) Neurological: Normal speech, Normal tone Lymphatics: No axilla or inguinal lymphadenopathy External genitalia: Deferred Rectal: Deferred <Sol Hayes - Last Filed: 05/30/23 19:24> Assessment And Plan - Plan - Problems (Diagnosis) (1) Cellulitis, perineum Current Visit: Yes Status: Acute Vancomycin 2gm IVPB q 12h (day 2 05/30/23) Zosyn 3.375gm q8h (day 2 05/1723) (2) NIDDM: FSBS Q6h SSI (0400 blood sugar down from 750mg/dl to 435mg/dl) Insulin glargine 20units last pm at 2100 NPO - advanced as blood sugar decreased Trend Chem 7 Diabetic education SS consult for supplies and follow up (3) HLD: Fish oil 2000mg po daily Lopid 1200mg po BID Insulin drip if CO2 drops on am chem 7 (0400 CO2 from 25 to 20) Senior Ui Ux Developer consult (4) Seizure Current Visit: No Status: Acute Keppra Observe for seizure activity DVT prophylaxis: Lovenox 40mg sc daily - Advance Directives Does patient have a Living Will: No Does patient have a Durable POA for Healthcare: No Discharge Plan: Home Plan to discharge in: 72 Hours - Code Status/Comfort Care Code Status Assessed: Yes (Full) <Sol Hayes - Last Filed: 05/30/23 19:24> - Current Problems (Diagnosis) (1) Cellulitis, perineum Current Visit: Yes Status: Acute (2) Seizure Current Visit: No Status: Acute (3) Marijuana use Current Visit: Yes Status: Acute (4) Hypertriglyceridemia Current Visit: Yes Status: Acute (5) Type 2 diabetes mellitus Current Visit: Yes Status: Acute <Erika Jones - Last Filed: 05/31/23 08:10> Date of Service: 05/30/23 Patient is seen and examined. Agree with findings as mentioned above. Continue with strict blood sugar control as well as strict control of fatty acids. Continue with antibiotics. <Erika Jones - Last Filed: 05/31/23 08:10>
[2023-05-30] MEDS ORDERED: INSULIN REGULAR (HUMAN) 100 UNIT/ML ONE (23:03)
[2023-05-30] MEDS: INSULIN REGULAR (HUMAN) 100 UNIT/ML SQ SCH (23:04)
[2023-05-31] MEDS ORDERED: PIPERACIL/TAZO 3.375 GM VIAL IV ONE (01:00)
[2023-05-31] MEDS ORDERED: NA CHLORIDE 0.9% 100 ML ONE (01:00)
[2023-05-31 01:48] VITALS: O2SAT 98
[2023-05-31] MEDS ORDERED: HYDROCODONE/APAP 10/325 TAB ONE ×2 (03:03→11:32)
[2023-05-31] MEDS ORDERED: NA CHLORIDE 0.9% 1,000 ML ONE (05:23)
[2023-05-31] MEDS ORDERED: METOPROLOL TAR 25 MG TAB ONE (05:49)
[2023-05-31] MEDS: METOPROLOL TAR 25 MG TAB PO SCH (05:53)
[2023-05-31 07:31] LABS: Anion Gap 12.5 mEq/L (5.0-15.0); Potassium 4.5 mEq/L (3.5-5.1)
[2023-05-31] MEDS ORDERED: D10W 125 ML IV PRN (07:57)
[2023-05-31] MEDS: glyBURIDE 2.5 MG TAB PO SCH (08:04)
[2023-05-31] MEDS ORDERED: INSULIN GLARGINE 100 UNIT/ML SQ ONE (08:15)
[2023-05-31] MEDS ORDERED: INSULIN REGULAR (HUMAN) 100 UNIT/ML ONE ×2 (08:16→11:21)
[2023-05-31] MEDS ORDERED: INSULIN 70/30 100 UNITS/ML SQ ONE (08:38)
[2023-05-31] MEDS: INSULIN GLARGINE 100 UNIT/ML SQ SCH (09:00)
[2023-05-31] MEDS: INSULIN 70/30 100 UNITS/ML SQ SCH (09:02)
[2023-05-31] MEDS: ENOXAPARIN 40 MG/0.4 ML SQ SCH (09:03)
[2023-05-31 12:40] VITALS: BP 130/91; TEMP 97
[2023-05-31] MEDS ORDERED: VANCOMYCIN 1.75 GM in NA CHLORIDE 0.9% 500 ML IVPB SCH (17:00)
[2023-05-31] MEDS ORDERED: METFORMIN HCL 500 MG TAB PO SCH (17:00)
== END 2023-05-31 15:00 | disposition home or self-care (01) ==
LOC: ER 14:36 → ERHOLD 17:19 → 4TH 21:07 → 3RD-ICU 05-30 10:57
PROVIDERS: ADMIT Hospitalist; ATTEND Hospitalist
DX: L03.315 Cellulitis of perineum (principal); R56.9 Unspecified convulsions; E78.1 Pure hyperglyceridemia; F12.90 Cannabis use, unspecified, uncomplicated; E78.5 Hyperlipidemia, unspecified; E11.65 Type 2 diabetes mellitus with hyperglycemia; F17.290 Nicotine dependence, other tobacco product, uncomplicated; Z79.4 Long term (current) use of insulin
CPT/HCPCS: 36415; 74177; 80048; 80053; 80061; 80202; 81003; 82947; 83036; 83605; 83690; 84478; 85025; 87040; 96361; 96365; 96375; 99285; G0378; J1650; J1815; J2270; J2543; J7030; J7040; J7050; Q9967

== ENCOUNTER 2023-06-13 12:58 | Emergency (ER) | payer SELFPAY ==
--- OUTSIDE RECORDS SUMMARY | 2023-06-13 13:01 | XMS REPORT | Continuity of Care Document ---
Author Name Unknown Address [address] [place] [address] [facility]connect Address [address] [place] [address] Care Team Providers Care Service Order Taker Name Role Phone Unavailable Unavailable Unavailable Encounters Start Date/Time End Date/Time Encounter Type Admission Type Attending [facility] Facility Care Department Encounter ID Source 2023-02-15 13:45:35 2023-02-15 13:45:35 Outpatient [facility] SFA [id number] Miguel Arroyo 2023-01-23 14:44:32 2023-01-23 14:44:32 Outpatient SFA SFA [id number] Miguel Arroyo 2023-01-21 17:16:35 2023-01-21 17:16:35 Outpatient SFA SFA [id number] Miguel Arroyo 2023-01-15 13:03:04 2023-01-15 13:03:04 Outpatient SFA [id number] [id number] Miguel Arroyo 2022-09-23 13:47:04 2022-09-23 13:47:04 Outpatient SFA SFA [id number] Miguel Arroyo 2022-09-11 11:01:46 2022-09-11 11:01:46 Outpatient SFA SFA [id number] Miguel Abarca Cruz 2022-09-09 15:30:36 2022-09-09 15:30:36 Outpatient SFA SFA [id number] Miguel Arroyo
[2023-06-13] MEDS ORDERED: HYDROCODONE/APAP 5/325 MG TAB ONE (14:09)
[2023-06-13 14:31] LABS: Absolute Eosinophils 0.2 K/uL (0-0.5); Absolute Lymphocytes (CBC) 1.9 K/uL (0.7-4.9); Absolute Monocytes 0.5 K/uL (0.1-1.3); Basophils % 0.8 % (0-1.3); Eosinophils % 3.1 % (0-4.4); Hematocrit 38.3 % (39.6-49.0); Hemoglobin 12.2 g/dL (13.6-17.9); Lymphocytes % 33.9 % (15.3-44.8); MCHC 31.8 g/dL (32.0-36.0); MCV 78.6 fL (80-100); MPV 8.3 fL (7.6-11.3); Monocytes % 8.5 % (3.3-12.3); Neutrophils % 53.7 % (41.7-73.7); Platelets 207 thou/uL (152-406); RBC Red Blood Cell Count 4.88 M/uL (4.33-5.43); Red Cell Distribution Width 14.3 % (12.1-15.2)
[2023-06-13 14:39] LABS: Albumin 3.5 g/dL (3.4-5.0); Bilirubin Total 0.3 mg/dL (0.2-1.0); Globulin 3.5 g/dL (2.3-3.5)
--- NOTE | 2023-06-13 15:11 | RAD REPORT ---
EXAM DESCRIPTION: CT - Pelvis W/Cont - 06/13/2023 2:59 pm CLINICAL HISTORY: prior perineal cellulitis -- assess for change vs abscess COMPARISON: No comparisons TECHNIQUE: CT scan of the pelvis was obtained with IV contrast. FINDINGS: The bladder and bowel are unremarkable. The osseous structures are unremarkable. No pathol ogic lymphadenopathy is identified. Normal appendix. No evidence of a peritoneal for scrotal infectio us process identified. No soft tissue gas. The prostate is unremarkable. Minimal stranding in the per ineum on the right side. IMPRESSION: No abscess or soft tissue gas identified at the perineum or scrotum.
--- NOTE | 2023-06-13 15:14 | EDPHYS ---
Physician Documentation [facility] Name: Oswaldo Moore Age: 28 yrs Sex: Male : 1995 Arrival Date: 06/13/2023 Time: 12:58 Bed 6 Private MD: ED Physician Natalie Katz HPI: 06/12 13:48 This 28 yrs old Black Male presents to ER via Ambulatory with complaints of Blurred sp3 Vision, scotrum pain, Dizziness. 13:48 28-year-old male with history of hypertension, diabetes, prior seizures now presents to [facility] the ED with chief complaint continued groin pain on the right side where his prior early cellulitis was from his prior admission. Patient states that he was not given any pain medication on discharge and he would really like some pain medication. He denies fever, abdominal pain, difficulty urinating or any other signs or symptoms at this time.. Historical: - Allergies: 13:16 Morphine; as6 - PMHx: 13:16 Asthma; Hypertensive disorder; depressive disorder; Seizures; as6 - PSHx: 13:16 None; as6 - Immunization history:: Adult Immunizations up to date. - Social history:: Smoking status: Reported history of juuling and/or vaping. ROS: 13:54 Constitutional: Negative for fever, chills, and weight loss, Eyes: Negative for injury, sp3 pain, redness, and discharge, ENT: Negative for injury, pain, and discharge, Neck: Negative for injury, pain, and swelling, Cardiovascular: Negative for chest pain, palpitations, and edema, Respiratory: Negative for shortness of breath, cough, wheezing, and pleuritic chest pain, Back: Negative for injury and pain, MS/Extremity: Negative for injury and deformity, Skin: Negative for injury, rash, and discoloration, Neuro: Negative for headache, weakness, numbness, tingling, and seizure, Psych: Negative for depression, anxiety, suicide ideation, homicidal ideation, and hallucinations, Allergy/Immunology: Negative for hives, rash, and allergies, Endocrine: Negative for neck swelling, polydipsia, polyuria, polyphagia, and marked weight changes, 13:54 All other systems are negative, Exam: 13:54 Constitutional: This is a well developed, well nourished patient who is awake, alert, sp3 and in no acute distress. Head/Face: Normocephalic, atraumatic. Eyes: Pupils equal round and reactive to light, extra-ocular motions intact. Lids and lashes normal. Conjunctiva and sclera are non-icteric and not injected. Cornea within normal limits. Periorbital areas with no swelling, redness, or edema. ENT: Nares patent. No nasal discharge, no septal abnormalities noted. External auditory canals are clear. Oropharynx with no redness, swelling, or masses, exudates, or evidence of obstruction, uvula midline. Mucous membranes moist. Neck: Trachea midline, no thyromegaly or masses palpated, and no cervical lymphadenopathy. Supple, full range of motion without nuchal rigidity, or vertebral point tenderness. No Meningismus. Chest/axilla: Normal chest wall appearance and motion. Nontender with no deformity. No lesions are appreciated. Cardiovascular: Regular rate and rhythm with a normal S1 and S2. No gallops, murmurs, or rubs. Normal PMI, no JVD. No pulse deficits. Respiratory: Lungs have equal breath sounds bilaterally, clear to auscultation and percussion. No rales, rhonchi or wheezes noted. No increased work of breathing, no retractions or nasal flaring. Abdomen/GI: Soft, non-tender, with normal bowel sounds. No distension or tympany. No guarding or rebound. No evidence of tenderness throughout. Back: No spinal tenderness. No costovertebral tenderness. Full range of motion. Skin: Warm, dry with normal turgor. Normal color with no rashes, no lesions, and no evidence of cellulitis. MS/ Extremity: Pulses equal, no cyanosis. Neurovascular intact. Full, normal range of motion. Neuro: Awake and alert, GCS 15, oriented to person, place, time, and situation. Cranial nerves II-XII grossly intact. Motor strength 5/5 in all extremities. Sensory grossly intact. Cerebellar exam normal. Normal gait. Psych: Awake, alert, with orientation to person, place and time. Behavior, mood, and affect are within normal limits. 13:54 : Genitourinary exam demonstrates mild pain on the perineal area between his scrotum and thigh on the right side. Nothing perirectal. No signs of Allegra's, necrosis, subcu air or pain out of proportion to exam., Vital Signs: 13:14 BP 104 / 61; Pulse 99; Resp 17 S; Temp 99(O); Pulse Ox 99% on R/A; Weight 112.49 kg as6 (R); Height 5 ft. 6 in. (R); Pain 10/10; 14:17 BP 105 / 70; Pulse 81; Resp 18; Pulse Ox 100% on R/A; ll1 15:33 BP 112 / 65; Pulse 85; Resp 18; Temp 98.9; Pulse Ox 99% ; bp 13:14 Body Mass Index 40.03 (112.49 kg, 167.64 cm) as6 13:14 Pain Scale: Adult as6 MDM: 13:32 Patient medically screened. sp3 13:55 Data reviewed: vital signs, nurses notes. ED course: 28-year-old male with continued sp3 right-sided skin pain adjacent to his scrotum. I am not highly suspicious for Allegra's or any other critical process. Patient keeps asking for narcotic medication and I am somewhat suspicious that he is exhibiting drug-seeking behavior. However given his pathology present on his last visit, we will obtain laboratory values and CT scan of the pelvis to assess for cellulitis, abscess or any other process. If negative we will safely discharged home on p.o. antibiotic on a prophylactic basis. I am not comfortable giving narcotic pain medication at this time.. 15:13 ED course: Labs and CT scan of the pelvis negative. We will discharge patient on sp3 Augmentin and tramadol.. 06/12 13:45 Order name: CBC with Diff; Complete Time: 14:46 sp3 06/12 13:45 Order name: CMP; Complete Time: 14:46 sp3 06/12 13:47 Order name: CT Pelvis w cont; Complete Time: 15:13 sp3 06/12 13:45 Order name: IV Saline Lock; Complete Time: 14:17 sp3 06/12 13:45 Order name: Labs collected and sent; Complete Time: 14:17 sp3 Administered Medications: 14:17 Drug: HYDROcodone-acetaminophen PO 5 mg-325 mg 2 tabs PO once Route: PO; ll1 15:35 Follow up: Response: No adverse reaction bp Disposition Summary: 06/13/23 15:14 Discharge Ordered Notes: Location: Home sp3 Condition: Stable sp3 Diagnosis - Scrotal pain, cellulitis sp3 Followup: sp3 - With: Private Physician - When: Upon discharge from the Emergency Department - Reason: Continuance of care Discharge Instructions: - Discharge Summary Sheet sp3 - Cellulitis, Adult sp3 Forms: - Work release form ll1 - Medication Reconciliation Form sp3 - Thank You Letter sp3 - Antibiotic Education sp3 - Prescription Opioid Use sp3 - Patient Portal Instructions sp3 - Leadership Thank You Letter sp3 Prescriptions: - Augmentin 875-125 mg Oral Tablet - take 1 tablet ORAL route every 12 hours for 10 days; 20 tablet; Refills: 0, sp3 Product Selection Permitted - Tramadol 50 mg Oral tablet - take 1 tablet ORAL route every 8 hours as needed; 11 tablet; Refills: 0, sp3 Product Selection Permitted Signatures: Dispatcher [employer] Sunil Billingsley, RN RN ll1 Natalie Katz MD MD sp3 Jeffery Benitez RN RN as6 Aroldo Barrera RN bp
--- NOTE | 2023-06-13 15:14 | ER ---
Nurse's Notes [facility] Name: Oswaldo Moore Age: 28 yrs Sex: Male : 1995 Arrival Date: 06/13/2023 Time: 12:58 Bed 6 Private MD: Diagnosis: Scrotal pain, cellulitis Presentation: 06/12 13:17 Chief complaint: Patient states: pt is worried he is pre diabetic and has been having as6 blurry vision. pt also report he was here recently for a abscess near his scrotum and pt had completed a full does of antibiotics but reports the abscess has moved and is painful. Coronavirus screen: At this time, the client does not indicate any symptoms associated with coronavirus-19. Ebola Screen: No symptoms or risks identified at this time. Initial Sepsis Screen: Does the patient meet any 2 criteria? No. Patient's initial sepsis screen is negative. Does the patient have a suspected source of infection? No. Patient's initial sepsis screen is negative. Risk Assessment: Do you want to hurt yourself or someone else? Patient reports no desire to harm self or others. Onset of symptoms was June 12, 2023. 13:17 Acuity: SUMAN 4 as6 13:17 Method Of Arrival: Ambulatory as6 Triage Assessment: 13:20 General: Appears in no apparent distress. uncomfortable, Behavior is calm, cooperative, bp appropriate for age. Pain: Complains of pain in groin. Historical: - Allergies: 13:16 Morphine; as6 - PMHx: 13:16 Asthma; Hypertensive disorder; depressive disorder; Seizures; as6 - PSHx: 13:16 None; as6 - Immunization history:: Adult Immunizations up to date. - Social history:: Smoking status: Reported history of juuling and/or vaping. Screenin:17 [facility] ED Fall Risk Assessment (Adult) History of falling in the last 3 months, ll1 including since admission No falls in past 3 months (0 pts). Abuse screen: Denies threats or abuse. Denies injuries from another. Nutritional screening: No deficits noted. Tuberculosis screening: No symptoms or risk factors identified. Assessment: 13:20 General: Appears in no apparent distress. uncomfortable, Behavior is calm, cooperative, bp appropriate for age. 14:17 General: Appears in no apparent distress. comfortable, Behavior is calm, cooperative, ll1 appropriate for age. Pain: Denies pain. Neuro: Level of Consciousness is awake, alert, obeys commands, Oriented to person, place, time, situation, Loan Teller are equal bilaterally Speech is normal, Reports blurred vision. Cardiovascular: Capillary refill < 3 seconds Patient's skin is warm and dry. Respiratory: Airway is patent Respiratory effort is even, unlabored. GI: Abdomen is round non-distended. : No signs and/or symptoms were reported regarding the genitourinary system. EENT: No signs and/or symptoms were reported regarding the EENT system. Derm: No signs and/or symptoms reported regarding the dermatologic system. Musculoskeletal: No signs and/or symptoms reported regarding the musculoskeletal system. 15:33 Reassessment: DC HOME AMBULATORY. bp Vital Signs: 13:14 BP 104 / 61; Pulse 99; Resp 17 S; Temp 99(O); Pulse Ox 99% on R/A; Weight 112.49 kg as6 (R); Height 5 ft. 6 in. (R); Pain 10/10; 14:17 BP 105 / 70; Pulse 81; Resp 18; Pulse Ox 100% on R/A; ll1 15:33 BP 112 / 65; Pulse 85; Resp 18; Temp 98.9; Pulse Ox 99% ; bp 13:14 Body Mass Index 40.03 (112.49 kg, 167.64 cm) as6 13:14 Pain Scale: Adult as6 ED Course: 13:01 Patient arrived in ED. ra3 13:13 Natalie Katz MD is Attending Physician. sp3 13:14 Arm band placed on. as6 13:19 Triage completed. as6 13:22 Patient placed in an exam room, on a stretcher. ll1 13:27 Aroldo Barrera, RN is Primary Nurse. bp 14:17 Patient has correct armband on for positive identification. Placed in gown. Bed in low ll1 position. Call light in reach. Side rails up X2. monitor and storage bin tender on. Pulse ox on. NIBP on. Door closed. Noise minimized. Warm blanket given. 14:17 CBC with Diff Sent. ll1 14:17 CMP Sent. ll1 14:17 No provider procedures requiring assistance completed. Inserted saline lock: 20 gauge ll1 in right antecubital area, using aseptic technique. Blood collected. 14:20 Primary Nurse role handed off by Aroldo Barrera, RN ll1 14:20 Sunil Mcmillan, RN is Primary Nurse. 1 14:20 Primary Nurse role handed off by Sunil Mcmillan, RN ld1 14:20 Zulema Lopez, RN is Primary Nurse. ld1 15:00 CT Pelvis w cont In Process Unspecified. EDMS 15:33 Provided Education on: N/A. bp 15:33 IV discontinued, intact, bleeding controlled, No redness/swelling at site. Pressure bp dressing applied. Administered Medications: 14:17 Drug: HYDROcodone-acetaminophen PO 5 mg-325 mg 2 tabs PO once Route: PO; ll1 15:35 Follow up: Response: No adverse reaction bp Medication: 15:33 VIS not applicable for this client. bp Outcome: 15:14 Discharge ordered by . sp3 15:33 Discharged to home ambulatory, bp 15:33 Condition: stable 15:33 Discharge instructions given to patient, Instructed on discharge instructions, follow up and referral plans. medication usage, Demonstrated understanding of instructions, follow-up care, medications, Prescriptions given X 2, 15:35 Patient left the ED. bp Signatures: Dispatcher [employer] EDAK Aroldo Barrera, DEMETRIA RN bp Sunil Mcmillan, DEMETRIA RN 1 Zulema Lopez, DEMETRIA RN ld1 Natalie Katz MD MD sp3 Jeffery Benitez RN RN as6 Karen Min 3
[2023-06-13 18:19] VITALS: BP 112/65; TEMP 98.9; O2SAT 99
== END 2023-06-13 15:35 | disposition home or self-care (01) ==
LOC: ER 12:58
DX: L03.818 Cellulitis of other sites (principal)
CPT/HCPCS: 36415; 72193; 80053; 85025; 99284; Q9967

== ENCOUNTER 2023-07-26 08:04 | Emergency (ER) | payer SELFPAY ==
--- OUTSIDE RECORDS SUMMARY | 2023-07-26 08:06 | XMS REPORT | Continuity of Care Document ---
Author Name Unknown Address [address] [facility] [address] [place] [address] [facility] thconnect Address [address] [facility] [address] [place] [address] Care Team Providers Care Batch Tank Controller Name Role Phone Unavailable Unavailable Unavailable Encounters Start Date/Time End Date/Time Encounter Type Admission Type Attending [facility] Facility Care Department Encounter ID Source 2023-06-29 10:12:52 2023-06-29 10:12:52 Outpatient SFA SFA [id number] Miguel Arroyo 2023-02-15 13:45:35 2023-02-15 13:45:35 Outpatient SFA SFA [id number] Miguel Arroyo 2023-01-23 14:44:32 2023-01-23 14:44:32 Outpatient SFA SFA [id number] Miguel Arroyo 2023-01-21 17:16:35 2023-01-21 17:16:35 Outpatient SFA SFA [id number] Miguel Arroyo 2023-01-15 13:03:04 2023-01-15 13:03:04 Outpatient SFA SFA [id number] Miguel Arroyo 2022-09-23 13:47:04 2022-09-23 13:47:04 Outpatient SFA SFA [id number] Miguel Arroyo 2022-09-11 11:01:46 2022-09-11 11:01:46 Outpatient SFA SFA [id number] Miguel Arroyo 2022-09-09 15:30:36 2022-09-09 15:30:36 Outpatient SFA SFA [id number] Miguel Arroyo
--- NOTE | 2023-07-26 08:32 | EDPHYS ---
Physician Documentation [facility] Name: Oswaldo Moore Age: 28 yrs Sex: Male : 1995 Arrival Date: 07/26/2023 Time: 08:04 Bed 7 Private MD: ED Physician Wilberto Sharma HPI: 07/25 08:12 This 28 yrs old Black Male presents to ER via Ambulatory with complaints of Blood Sugar jh7 Problem, penis injury. 08:12 28-year-old male with a past medical history of diabetes presents to the ER for penile jh7 injury and fluctuations in blood sugar. The patient states that I am supposed to be in court today, and I am about to go to [facility], but I had a threesome 2 nights ago and injured myself. He stated " the girl was really dry and I noticed that my penis was cut this morning". He also states that he has been off his metformin for 3 weeks and that his sugar has ranged from 60-120. No other symptoms at this time.. Historical: - Allergies: 08:12 Morphine; ll1 - PMHx: 08:12 Asthma; depressive disorder; Hypertensive disorder; Seizures; ll1 - Immunization history:: Adult Immunizations up to date. - Infectious Disease History:: Denies. - Social history:: Smoking status: unknown Patient uses street drugs, marijuana. ROS: 08:12 Constitutional: Per HPI jh7 Exam: 08:12 Constitutional: This is a well developed, well nourished patient who is awake, alert, jh7 and in no acute distress. Head/Face: Normocephalic, atraumatic. Eyes: Pupils equal round and reactive to light, extra-ocular motions intact. Lids and lashes normal. Conjunctiva and sclera are non-icteric and not injected. Cornea within normal limits. Periorbital areas with no swelling, redness, or edema. Neck: Trachea midline, no thyromegaly or masses palpated, and no cervical lymphadenopathy. Supple, full range of motion without nuchal rigidity, or vertebral point tenderness. No Meningismus. Cardiovascular: Regular rate and rhythm with a normal S1 and S2. No gallops, murmurs, or rubs. Normal PMI, no JVD. No pulse deficits. Respiratory: Lungs have equal breath sounds bilaterally, clear to auscultation and percussion. No rales, rhonchi or wheezes noted. No increased work of breathing, no retractions or nasal flaring. Abdomen/GI: Soft, non-tender, with normal bowel sounds. No distension or tympany. No guarding or rebound. No evidence of tenderness throughout. Back: No spinal tenderness. No costovertebral tenderness. Full range of motion. MS/ Extremity: Pulses equal, no cyanosis. Neurovascular intact. Full, normal range of motion. Neuro: Awake and alert, GCS 15, oriented to person, place, time, and situation. Motor strength 5/5 in all extremities. Sensory grossly intact. Normal gait. 08:12 Skin: injury, abrasion(s), very small abrasion noted, of the right side of penis inferior to the glans, no erythema, swelling, or drainage present. abrasion is superficial., Vital Signs: 08:28 Pulse 118; Temp 98.8; Pulse Ox 100% on R/A; Height 5 ft. 6 in. ; ll1 08:32 BP 118 / 88; Pulse 97; Resp 16; Pulse Ox 99% on R/A; ko1 MDM: 08:05 Patient medically screened. [facility] 08:48 Differential diagnosis: Penile abrasion, penile avulsion, penile laceration, [facility] hyperglycemia. Data reviewed: vital signs, nurses notes, lab test result(s). Historians other than the Patient: Spouse/Significant Other: girlfriend. Care significantly affected by the following chronic conditions: Diabetes, Hypertension. Counseling: I had a detailed discussion with the patient and/or guardian regarding the historical points, exam findings, and any diagnostic results supporting the discharge/admit diagnosis, to return to the emergency department if symptoms worsen or persist or if there are any questions or concerns that arise at home. Special discussion: Advised to avoid sexual activity for the next week to allow the abrasion to heal. ED course: Patient had to be asked multiple times to leave after he had been discharged. Had to have multiple nurses and myself repeatedly informed him that he had been discharged and needed to leave.. 07/25 08:42 Order name: Glucose, Ancillary Testing; Complete Time: 08:45 EDMS 07/25 08:23 Order name: Blood Glucose Level; Complete Time: 08:30 [facility] Administered Medications: No medications were administered Disposition: 11:21 Co-signature as Attending Physician, Wilberto Sharma MD I reviewed the patient's care rn provided by the Advanced Practice Provider and agree with the diagnosis and treatment plan. Disposition Summary: 07/26/23 08:31 Discharge Ordered Notes: Location: Home [facility] Problem: new [facility] Symptoms: are unchanged [facility] Condition: Stable 7 Diagnosis - Penile abrasion [facility] Followup: [facility] - With: Private Physician - When: 2 - 3 days - Reason: Recheck today's complaints Discharge Instructions: - Discharge Summary Sheet ll1 - Abrasion [facility] - Diabetes Mellitus and Nutrition, Adult [facility] - Diabetes Mellitus and Skin Care [facility] Forms: - Work release form ll1 - Medication Reconciliation Form 7 - Antibiotic Education [facility] - Patient Portal Instructions [facility] - Leadership Thank You Letter [facility] Prescriptions: - mupirocin 2 % Topical ointment - apply 1 application TOPICAL route 3 times per day for 7 days; 22 gram; Refills: [facility] 0, Product Selection Permitted Signatures: Wilebrto Sharma MD MD rn [place], Lynsay RN RN 1 Kaylyn Ac FNP [place] [id number] Maribell Leon, RN RN ko1
--- NOTE | 2023-07-26 08:32 | ER ---
Nurse's Notes [facility] Name: Oswaldo Moore Age: 28 yrs Sex: Male : 1995 Arrival Date: 07/26/2023 Time: 08:04 Bed 7 Private MD: Diagnosis: Penile abrasion Presentation: 07/25 08:12 Chief complaint: Patient states: Blood sugar problem. On cell phone while trying to ll1 triage patient. Coronavirus screen: Client denies travel out of the [place] in the last 14 days. At this time, the client does not indicate any symptoms associated with coronavirus-19. Ebola Screen: Patient denies travel to an Ebola-affected area in the 21 days before illness onset. Initial Sepsis Screen: Does the patient meet any 2 criteria? No. Patient's initial sepsis screen is negative. Does the patient have a suspected source of infection? No. Patient's initial sepsis screen is negative. Risk Assessment: Do you want to hurt yourself or someone else? Patient reports no desire to harm self or others. 08:12 Method Of Arrival: Ambulatory ll1 08:12 Acuity: SUMAN 3 ll1 08:28 Chief complaint: Patient states: Tear to penile area after intercourse this past 1 weekend. Onset of symptoms was July 24, 2023. Triage Assessment: 08:14 General: Appears in no apparent distress. Behavior is calm, cooperative, appropriate ll1 for age. General: Reports blood sugar problem. 08:29 : Reports pain penis. ll1 Historical: - Allergies: 08:12 Morphine; ll1 - PMHx: 08:12 Asthma; depressive disorder; Hypertensive disorder; Seizures; ll1 - Immunization history:: Adult Immunizations up to date. - Infectious Disease History:: Denies. - Social history:: Smoking status: unknown Patient uses street drugs, marijuana. Screenin:[address] [facility] ED Fall Risk Assessment (Adult) History of falling in the last 3 months, ko1 including since admission No falls in past 3 months (0 pts) Confusion or Disorientation No (0 pts) Intoxicated or Sedated No (0 pts) Impaired Gait No (0 pts) Mobility Assist Device Used No (0 pt) Altered Elimination No (0 pt) Score/Fall Risk Level 0 - 2 = Low Risk Oriented to surroundings, Maintained a safe environment, Educated pt \T\ family on fall prevention, incl call for assistance when getting out of bed, Assessed \T\ reinforced patient's understanding of fall precautions, Provided non-skid footwear, Hourly rounding (assess needs \T\ fall precautionary measures) done, Used ambulatory aids as needed (educated on \T\ assisted with), Used gait belt as appropriate. Abuse screen: Denies threats or abuse. Denies injuries from another. Nutritional screening: No deficits noted. Tuberculosis screening: No symptoms or risk factors identified. Assessment: 08:34 General: Appears in no apparent distress. Behavior is calm, Smells of marijuana. Pain: ko1 Denies pain. Neuro: No deficits noted. Cardiovascular: No deficits noted. Respiratory: No deficits noted. GI: No deficits noted. : No deficits noted. EENT: No deficits noted. Derm: No deficits noted. Musculoskeletal: No deficits noted. 08:47 Reassessment: Patient appears in no apparent distress at this time. No changes from ld1 previously documented assessment. Pt not wanting to leave - ERP in room telling patient they are up for discharge at this time. Vital Signs: 08:28 Pulse 118; Temp 98.8; Pulse Ox 100% on R/A; Height 5 ft. 6 in. ; ll1 08:32 BP 118 / 88; Pulse 97; Resp 16; Pulse Ox 99% on R/A; ko1 ED Course: 08:05 Patient arrived in ED. 4 08:05 Kaylyn Ac FNP [facility]. jh7 08:05 Wilberto Sharma MD is Attending Physician. 7 08:12 Arm band placed on Patient placed in an exam room, on a stretcher. ll1 08:13 Triage completed. ll1 08:32 Maribell Leon, DEMETRIA is Primary Nurse. ko1 08:32 Patient has correct armband on for positive identification. Allergy band placed. Bed in ko1 low position. Call light in reach. Side rails up X 1. Provided Education on: call light. Pulse ox on. NIBP on. Door closed. Noise minimized. 08:32 No provider procedures requiring assistance completed. Patient did not have IV access ko1 during this emergency room visit. Administered Medications: No medications were administered Medication: 08:32 VIS not applicable for this client. ko1 Outcome: 08:31 Discharge ordered by . 7 08:51 Discharged to home ambulatory, ld1 08:51 Condition: stable 08:51 Discharge instructions given to patient, Instructed on discharge instructions, follow up and referral plans. medication usage, Demonstrated understanding of instructions, follow-up care, medications, Prescriptions given X 1, 08:51 Patient left the ED. ld1 Signatures: Britney Graff rg4 Sunil Mcmillan RN RN ll1 Zulema Lopez RN RN ld1 Kaylyn Ac, GRINDER MACHINE KNIFE SETTER [facility]7 Maribell Leon RN RN ko1 Corrections: (The following items were deleted from the chart) 08:28 08:12 Chief complaint: Patient states: Blood sugar problem. On cell phone while trying ll1 to triage patient. ll1
[2023-07-26 09:08] VITALS: BP 118/88; TEMP 98.8; O2SAT 99
== END 2023-07-26 08:51 | disposition home or self-care (01) ==
LOC: ER 08:04
DX: S30.812A Abrasion of penis, initial encounter (principal); Z88.5 Allergy status to narcotic agent
CPT/HCPCS: 82947; 99283